=== PATIENT | male | born 1990 | race Caucasian/White ===

== ENCOUNTER 2018-01-09 10:39 | Inpatient (IN) | payer SELFPAY ==
[~2018-01-09] VITALS: Ht 182.9 cm; Wt 76.7 kg
[~2018-01-09 10:39] MED LIST: ACET325 PO; ALBU90OI INH; AMOCLA875 PO; BELPTAB PO; BENTYL; Bactrim Ds Tab1 EACH PO; CYCL10 PO; Catapres0.1 MG PO; DICYCLOMINE; DIPATR PO; DIPH50 PO; ESOM20 PO; FAMO20 PO; FAMO40 PO; Flonase 0.05% N16 GM; HYDACE5 PO; HYOS.125L SL; Loperamide2 MG PO; METO10 PO; MUPI2TO TOP; Miralax17 GM PO; NAPR500 PO; NO ROUTINE MEDS; Naprosyn375 MG PO; OMEP20ER PO; ONDA4 PO; ONDA4ODT MM; ONDA4ODT SL; OXYACE5T PO; OXYC30 PO; POTCHL10ER PO; POTCHL20ER PO; PROC10 PO; PROC25S PR; PROC5 PO; PROCHLORPERAZINE; PROM25; PROM25 PO; PROM25S PR; PROM50S PR; Pepcid40 MG PO; Permethrin60 GM TP; QUET25 PO; RANI150 PO; RXHYOS.125 PO; RXLORA1 PO; RXPROM25 PO; RXPROM25S PR; RXTRAM50 PO; SULTRIDS PO; TRAM50 PO; Ultram50 MG PO; Veetids 500500 MG PO; Zofran Odt4 MG SL
[2018-01-09 11:26] LABS: BASOPHILS ABSOLUTE AUTO 0.06 K/mm3 (0.00-0.23); BASOPHILS PERCENT AUTO 1 % (0-2); EOSINOPHILS PERCENT AUTO 0 % (0-6); Hemoglobin 17.5 g/dL (13.5-17.5); IMMATURE GRAN ABSOLUTE AUTO 0.16 K/mm3 (0.00-0.10); IMMATURE GRAN PERCENT AUTO 2 % (0-1); LYMPHOCYTES ABSOLUTE AUTO 1.07 K/mm3 (0.84-5.20); LYMPHOCYTES PERCENT AUTO 15 % (21-46); MONOCYTES ABSOLUTE AUTO 0.56 K/mm3 (0.16-1.47); MONOCYTES PERCENT AUTO 8 % (4-13); Mean Corpuscular Volume 86 fL (80-100); Mean Platelet Volume 10.8 fL (9.1-12.4); NEUTROPHILS ABSOLUTE AUTO 5.45 K/mm3 (1.96-9.15); NEUTROPHILS PERCENT AUTO 75 % (41-73); Platelet Count 231 K/mm3 (150-400); RDW Coefficient Variation 12.8 % (11.7-14.2); RDW Standard Deviation 39.4 fL (35.1-46.3); Red Blood Cell Count 5.83 M/mm3 (4.30-5.90)
[2018-01-09] MEDS ORDERED: LACTULOSE20 GM/30 M PO (12:22)
[2018-01-09 13:17] LABS: Alanine Aminotransfer (ALT/SGP 19 U/L (12-78); Albumin, Blood 4.1 g/dL (3.4-5.0); Albumin/Globulin Ratio 0.9 (0.8-1.8); Alk Phos 203 U/L (50-136); Anion Gap 25 mmol/L (6-16); Aspartate Aminotrans (AST/SGOT 43 U/L (12-37); Bilirubin, Total 1.1 mg/dL (0.1-1.0); Blood Urea Nitrogen 12 mg/dL (8-24); Bun/Creatinine Ratio 15.4 (12.0-20.0); CO2, Blood 6 mmol/L (21-32); Calcium, Blood 8.5 mg/dL (8.5-10.1); Chloride, Blood 103 mmol/L (98-108); Creatinine, Blood 0.78 mg/dL (0.60-1.20); Globulin, Blood 4.6 g/dL (2.2-4.0); Glomerular Filtration Rate >60 (60-); Glucose, Blood 451 mg/dL (70-99); Potassium, Blood 4.4 mmol/L (3.5-5.5); Sodium, Blood 134 mmol/L (136-145); Total Protein, Blood 8.7 g/dL (6.4-8.2)
[2018-01-09 13:57] LABS: PCO2 Venous 27.1 mmHg (38-42); PO2 Venous 31.5 mmHg (38-42); pH Blood Venous 7.06 (7.34-7.37)
[2018-01-09 13:58] LABS: Base Excess Venous -22.7 mmol/L; Bicarbonate Venous 9.7 mmol/L (24.0-30.0)
[2018-01-09 18:50] LABS: Anion Gap 21 mmol/L (6-16); Blood Urea Nitrogen 10 mg/dL (8-24); Bun/Creatinine Ratio 16.7 (12.0-20.0); CO2, Blood 7 mmol/L (21-32); Calcium, Blood 7.8 mg/dL (8.5-10.1); Chloride, Blood 111 mmol/L (98-108); Glomerular Filtration Rate >60 (60-); Glucose, Blood 278 mg/dL (70-99); Potassium, Blood 3.4 mmol/L (3.5-5.5); Sodium, Blood 139 mmol/L (136-145)
[2018-01-10 01:03] LABS: Anion Gap 13 mmol/L (6-16); Blood Urea Nitrogen 8 mg/dL (8-24); Bun/Creatinine Ratio 14.1 (12.0-20.0); CO2, Blood 16 mmol/L (21-32); Calcium, Blood 7.6 mg/dL (8.5-10.1); Chloride, Blood 114 mmol/L (98-108); Creatinine, Blood 0.57 mg/dL (0.60-1.20); Glomerular Filtration Rate >60 (60-); Glucose, Blood 181 mg/dL (70-99); Potassium, Blood 2.7 mmol/L (3.5-5.5); Sodium, Blood 143 mmol/L (136-145)
[2018-01-10 08:55] LABS: Anion Gap 13 mmol/L (6-16); Blood Urea Nitrogen 8 mg/dL (8-24); CO2, Blood 18 mmol/L (21-32); Calcium, Blood 7.6 mg/dL (8.5-10.1); Chloride, Blood 110 mmol/L (98-108); Glomerular Filtration Rate >60 (60-); Glucose, Blood 140 mg/dL (70-99); Potassium, Blood 2.9 mmol/L (3.5-5.5); Sodium, Blood 141 mmol/L (136-145)
[2018-01-11 05:52] LABS: Anion Gap 14 mmol/L (6-16); Blood Urea Nitrogen 15 mg/dL (8-24); Bun/Creatinine Ratio 25.2 (12.0-20.0); CO2, Blood 22 mmol/L (21-32); Calcium, Blood 8.4 mg/dL (8.5-10.1); Chloride, Blood 104 mmol/L (98-108); Glomerular Filtration Rate >60 (60-); Glucose, Blood 245 mg/dL (70-99); Potassium, Blood 3.2 mmol/L (3.5-5.5); Sodium, Blood 140 mmol/L (136-145)
[2018-01-11] MEDS ORDERED: LEVEMIR FL100 UNIT/1 SC (10:55)
[2018-01-11] MEDS ORDERED: Novolog Fl100 UNIT/1 (11:00)
== END 2018-01-11 12:50 | disposition home or self-care (01) | DRG 639 ==
LOC: ER 10:39 → ICUW 10:40 → MEDS 01-10 14:50 → ENPENDDIS 01-11 10:03 → MEDS 01-11 12:50
PROVIDERS: Hospitalist; Internal Medicine; Physician Assistant; Psychiatry & Neurology Psychiatry
DX: E11.10 Type 2 diabetes mellitus with ketoacidosis without coma (principal); F17.210 Nicotine dependence, cigarettes, uncomplicated; Z79.4 Long term (current) use of insulin; K58.1 Irritable bowel syndrome with constipation
CPT/HCPCS: 36415; 74018; 74176; 80048; 80053; 82010; 82803; 82947; 83036; 83690; 85025; C9113; J1815; J1885; J2550; J2765; J3010; J3480; J7030; J7042

== ENCOUNTER 2018-04-01 00:13 | Emergency (ER) | payer OTHER ==
[~2018-04-01] VITALS: Ht 185.4 cm; Wt 83.9 kg
[~2018-04-01 00:13] MED LIST changes: +LACTULOSE20 GM/30 M PO; +LEVEMIR FL100 UNIT/1 SC; +Novolog Fl100 UNIT/1
[2018-04-01 00:40] LABS: Calcium, Ionized (POC) 1.15 mmol/L (1.10-1.46); Chloride (POC) 106 mmol/L (98-108); Creatinine (POC) 0.8 mg/dL (0.8-1.3); Glucose (ISTAT POC) 107 mg/dL (70-99); Hemoglobin (POC) 15.3 g/dL (13.5-17.5); Potassium (POC) 3.2 mmol/L (3.5-5.5); Sodium (POC) 144 mmol/L (135-148); Total CO2 (POC) 24 mmol/L (21-32)
== END 2018-04-01 01:59 | disposition left against medical advice (07) ==
LOC: ER 00:13
PROVIDERS: Emergency Medicine
DX: T38.3X1A Poisoning by insulin and oral hypoglycemic [antidiabetic] drugs, accidental (unintentional), initial encounter (principal); E11.649 Type 2 diabetes mellitus with hypoglycemia without coma; F17.210 Nicotine dependence, cigarettes, uncomplicated; Z88.8 Allergy status to other drugs, medicaments and biological substances; Z88.1 Allergy status to other antibiotic agents; Z88.5 Allergy status to narcotic agent; Z79.4 Long term (current) use of insulin
CPT/HCPCS: 80047; 82947; 85014; 99283

== ENCOUNTER 2018-07-02 05:55 | Emergency (ER) | payer OTHER ==
[~2018-07-02] VITALS: Ht 182.9 cm; Wt 68.0 kg
[~2018-07-02 05:55] MED LIST changes: +Bentyl20 MG PO; +Dicyclomine HCl20 MG PO; +INSULANPEN SC; +Lantus100 UNIT/1 SC; +METO5A PO; -Novolog Fl100 UNIT/1; +Novolog Fl100 UNIT/1 SC; +PHENERGAN25 MG PR; +Reglan10 MG PO
[2018-07-02 06:15] LABS: Calcium, Ionized (POC) 1.17 mmol/L (1.10-1.46); Chloride (POC) 100 mmol/L (98-108); Creatinine (POC) 0.7 mg/dL (0.8-1.3); Glucose (ISTAT POC) 390 mg/dL (70-99); Hemoglobin (POC) 15.6 g/dL (13.5-17.5); Potassium (POC) 4.1 mmol/L (3.5-5.5); Sodium (POC) 140 mmol/L (135-148); Total CO2 (POC) 25 mmol/L (21-32)
[2018-07-02 06:22] LABS: Base Excess Venous 2.9 mmol/L; Bicarbonate Venous 25.9 mmol/L (24.0-30.0); PCO2 Venous 40.8 mmHg (38-42); PO2 Venous 31.1 mmHg (38-42); pH Blood Venous 7.43 (7.34-7.37)
[2018-07-02 06:24] LABS: BASOPHILS ABSOLUTE AUTO 0.01 K/mm3 (0.00-0.23); BASOPHILS PERCENT AUTO 0 % (0-2); EOSINOPHILS PERCENT AUTO 0 % (0-6); Hemoglobin 16.1 g/dL (13.5-17.5); IMMATURE GRAN ABSOLUTE AUTO 0.02 K/mm3 (0.00-0.10); IMMATURE GRAN PERCENT AUTO 0 % (0-1); LYMPHOCYTES ABSOLUTE AUTO 1.01 K/mm3 (0.84-5.20); LYMPHOCYTES PERCENT AUTO 10 % (21-46); MONOCYTES ABSOLUTE AUTO 0.43 K/mm3 (0.16-1.47); MONOCYTES PERCENT AUTO 4 % (4-13); Mean Corpuscular HGB 28.5 pg (26.0-34.0); Mean Corpuscular HGB Conc 33.5 g/dL (31.5-36.5); Mean Corpuscular Volume 85 fL (80-100); Mean Platelet Volume 10.4 fL (9.1-12.4); NEUTROPHILS ABSOLUTE AUTO 8.63 K/mm3 (1.96-9.15); NEUTROPHILS PERCENT AUTO 85 % (41-73); Platelet Count 307 K/mm3 (150-400); RDW Coefficient Variation 14.6 % (11.7-14.2); RDW Standard Deviation 45.7 fL (35.1-46.3); Red Blood Cell Count 5.64 M/mm3 (4.30-5.90)
[2018-07-02 06:47] LABS: Alanine Aminotransfer (ALT/SGP 22 U/L (12-78); Albumin/Globulin Ratio 0.9 (0.8-1.8); Alk Phos 83 U/L (50-136); Anion Gap 14 mmol/L (6-16); Aspartate Aminotrans (AST/SGOT 8 U/L (12-37); Bilirubin, Total 0.6 mg/dL (0.1-1.0); Blood Urea Nitrogen 19 mg/dL (8-24); Bun/Creatinine Ratio 25.7 (12.0-20.0); CO2, Blood 25 mmol/L (21-32); Calcium, Blood 10.1 mg/dL (8.5-10.1); Chloride, Blood 100 mmol/L (98-108); Creatinine, Blood 0.74 mg/dL (0.60-1.20); Globulin, Blood 4.4 g/dL (2.2-4.0); Glomerular Filtration Rate >60 (60-); Glucose, Blood 394 mg/dL (70-99); Potassium, Blood 4.1 mmol/L (3.5-5.5); Sodium, Blood 139 mmol/L (136-145); Total Protein, Blood 8.4 g/dL (6.4-8.2)
[2018-07-02 07:42] LABS: Source, Urine Clean Catch
[2018-07-02 07:47] LABS: Bilirubin, Urine Neg (Neg); Blood, Urine Neg (Neg); Glucose Qualitative, Urine 4+ (Neg); Ketones, Urine 4+ (Neg); Leukocyte Esterase, Urine Neg (Neg); Nitrite, Urine Neg (Neg); Protein, Urine Neg (Neg); Urobilinogen, Urine NORM (Normal)
[2018-07-02 07:52] LABS: Color, Urine Yellow (P-Yellow)
[2018-07-02 07:53] LABS: Appearance, Urine Clear (Clear)
== END 2018-07-02 08:45 | disposition home or self-care (01) ==
LOC: ER 05:55
PROVIDERS: Emergency Medicine
DX: G43.A0 Cyclical vomiting, in migraine, not intractable (principal); E10.65 Type 1 diabetes mellitus with hyperglycemia; Z91.19 Patient's noncompliance with other medical treatment and regimen; F12.90 Cannabis use, unspecified, uncomplicated; Z88.1 Allergy status to other antibiotic agents; Z88.5 Allergy status to narcotic agent; Z88.8 Allergy status to other drugs, medicaments and biological substances; Z79.4 Long term (current) use of insulin; F17.210 Nicotine dependence, cigarettes, uncomplicated
CPT/HCPCS: 36415; 80047; 80053; 81003; 82803; 83690; 85014; 85025; 96361; 96365; 96375; 99284-25; J1200; J1630; J2405; J2550; J7030

== ENCOUNTER 2018-07-04 07:25 | Emergency (ER) | payer OTHER ==
[~2018-07-04] VITALS: Ht 182.9 cm; Wt 72.6 kg
[2018-07-04 08:21] LABS: BASOPHILS ABSOLUTE AUTO 0.01 K/mm3 (0.00-0.23); BASOPHILS PERCENT AUTO 0 % (0-2); EOSINOPHILS ABSOLUTE AUTO 0.01 K/mm3 (0.00-0.68); EOSINOPHILS PERCENT AUTO 0 % (0-6); Hemoglobin 15.3 g/dL (13.5-17.5); IMMATURE GRAN ABSOLUTE AUTO 0.05 K/mm3 (0.00-0.10); IMMATURE GRAN PERCENT AUTO 1 % (0-1); LYMPHOCYTES ABSOLUTE AUTO 1.93 K/mm3 (0.84-5.20); LYMPHOCYTES PERCENT AUTO 18 % (21-46); MONOCYTES ABSOLUTE AUTO 0.77 K/mm3 (0.16-1.47); MONOCYTES PERCENT AUTO 7 % (4-13); Mean Corpuscular HGB 28.9 pg (26.0-34.0); Mean Corpuscular HGB Conc 34.8 g/dL (31.5-36.5); Mean Corpuscular Volume 83 fL (80-100); Mean Platelet Volume 10.7 fL (9.1-12.4); NEUTROPHILS ABSOLUTE AUTO 7.73 K/mm3 (1.96-9.15); NEUTROPHILS PERCENT AUTO 74 % (41-73); Platelet Count 298 K/mm3 (150-400); RDW Coefficient Variation 13.4 % (11.7-14.2); RDW Standard Deviation 40.6 fL (35.1-46.3)
[2018-07-04 08:39] LABS: Alanine Aminotransfer (ALT/SGP 23 U/L (12-78); Albumin, Blood 3.6 g/dL (3.4-5.0); Albumin/Globulin Ratio 0.9 (0.8-1.8); Alk Phos 73 U/L (50-136); Anion Gap 14 mmol/L (6-16); Aspartate Aminotrans (AST/SGOT 11 U/L (12-37); Blood Urea Nitrogen 23 mg/dL (8-24); Bun/Creatinine Ratio 34.8 (12.0-20.0); CO2, Blood 28 mmol/L (21-32); Calcium, Blood 8.9 mg/dL (8.5-10.1); Chloride, Blood 92 mmol/L (98-108); Creatinine, Blood 0.66 mg/dL (0.60-1.20); Globulin, Blood 3.8 g/dL (2.2-4.0); Glomerular Filtration Rate >60 (60-); Glucose, Blood 347 mg/dL (70-99); Potassium, Blood 3.3 mmol/L (3.5-5.5); Sodium, Blood 134 mmol/L (136-145); Total Protein, Blood 7.4 g/dL (6.4-8.2)
[2018-07-04 09:17] LABS: Source, Urine Voided
[2018-07-04 09:24] LABS: Bilirubin, Urine Neg (Neg); Blood, Urine Neg (Neg); Glucose Qualitative, Urine 4+ (Neg); Ketones, Urine 4+ (Neg); Leukocyte Esterase, Urine Neg (Neg); Nitrite, Urine Neg (Neg); Protein, Urine Neg (Neg); Urobilinogen, Urine NORM (Normal)
[2018-07-04 09:49] LABS: U Amphetamine Screen Not Detected; U Barbituate Screen Not Detected; U Benzodiazapine Screen Not Detected; U Cannabinoids Screen DETECTED; U Cocaine Screen Not Detected; U Methadone Screen Not Detected; U Methamphetamine Screen Not Detected; U Opiates Screen DETECTED; U Phencyclidine Screen Not Detected
[2018-07-04 09:50] LABS: U Buprenorphine Screen DETECTED; U Oxycodone Screen Not Detected; U Propoxyphene Screen Not Detected
[2018-07-04 09:55] LABS: Appearance, Urine Clear (Clear); Color, Urine Yellow (P-Yellow)
[2018-07-04] MEDS ORDERED: Phenergan25 MG PR (10:23)
[2018-07-04] MEDS ORDERED: PROM25 PO (10:23)
== END 2018-07-04 10:28 | disposition home or self-care (01) ==
LOC: ER 07:25
PROVIDERS: Emergency Medicine
DX: E10.65 Type 1 diabetes mellitus with hyperglycemia (principal); F17.210 Nicotine dependence, cigarettes, uncomplicated; Z88.1 Allergy status to other antibiotic agents; Z88.5 Allergy status to narcotic agent; Z79.4 Long term (current) use of insulin
CPT/HCPCS: 36415; 80053; 81003; 83690; 85025; 96361; 96374; 96375; 99283-25; J1200; J1630; J1885; J7120

== ENCOUNTER → 2018-08-17 | Outpatient (CLI) | payer OTHER ==
[~2018-08-17] MED LIST changes: +Phenergan25 MG PR; +SUBOXONE 8 MG-1 EACH SL
== END | disposition home or self-care (01) ==
LOC: LAB SHORT 10:50 → LAB SRC 10:50 → LAB SHORT 08-18 11:27
DX: Z51.81 Encounter for therapeutic drug level monitoring (principal); Z79.899 Other long term (current) drug therapy
CPT/HCPCS: G0480

== ENCOUNTER 2018-08-23 08:39 | Emergency (ER) | payer OTHER ==
[~2018-08-23] VITALS: Ht 182.9 cm; Wt 72.6 kg
[~2018-08-23 08:39] MED LIST changes: -SUBOXONE 8 MG-1 EACH SL
[2018-08-23 09:43] LABS: BASOPHILS ABSOLUTE AUTO 0.04 K/mm3 (0.00-0.23); BASOPHILS PERCENT AUTO 1 % (0-2); EOSINOPHILS ABSOLUTE AUTO 0.02 K/mm3 (0.00-0.68); EOSINOPHILS PERCENT AUTO 0 % (0-6); Hematocrit 47.9 % (37.0-53.0); Hemoglobin 16.4 g/dL (13.5-17.5); IMMATURE GRAN ABSOLUTE AUTO 0.02 K/mm3 (0.00-0.10); IMMATURE GRAN PERCENT AUTO 0 % (0-1); LYMPHOCYTES ABSOLUTE AUTO 1.72 K/mm3 (0.84-5.20); LYMPHOCYTES PERCENT AUTO 25 % (21-46); MONOCYTES ABSOLUTE AUTO 0.39 K/mm3 (0.16-1.47); MONOCYTES PERCENT AUTO 6 % (4-13); Mean Corpuscular HGB 28.5 pg (26.0-34.0); Mean Corpuscular HGB Conc 34.2 g/dL (31.5-36.5); Mean Corpuscular Volume 83 fL (80-100); Mean Platelet Volume 11.2 fL (9.1-12.4); NEUTROPHILS ABSOLUTE AUTO 4.79 K/mm3 (1.96-9.15); NEUTROPHILS PERCENT AUTO 69 % (41-73); Platelet Count 230 K/mm3 (150-400); RDW Coefficient Variation 13.3 % (11.7-14.2); RDW Standard Deviation 40.2 fL (35.1-46.3); Red Blood Cell Count 5.76 M/mm3 (4.30-5.90); White Blood Cell Count 6.98 K/mm3 (4.00-11.30)
[2018-08-23] MEDS ORDERED: SUBOXONE 8 MG-1 EACH SL (10:04)
[2018-08-23 10:12] LABS: Alanine Aminotransfer (ALT/SGP 581 U/L (12-78); Alk Phos 138 U/L (50-136); Anion Gap 10 mmol/L (6-16); Aspartate Aminotrans (AST/SGOT 324 U/L (12-37); Bilirubin, Total 0.6 mg/dL (0.1-1.0); Blood Urea Nitrogen 12 mg/dL (8-24); Bun/Creatinine Ratio 21.1 (12.0-20.0); CO2, Blood 24 mmol/L (21-32); Calcium, Blood 8.9 mg/dL (8.5-10.1); Chloride, Blood 104 mmol/L (98-108); Creatinine, Blood 0.57 mg/dL (0.60-1.20); Glomerular Filtration Rate >60 (60-); Glucose, Blood 389 mg/dL (70-99); Potassium, Blood 4.6 mmol/L (3.5-5.5); Sodium, Blood 138 mmol/L (136-145)
== END 2018-08-23 11:49 | disposition home or self-care (01) ==
LOC: ER 08:39
PROVIDERS: Emergency Medicine
DX: G43.A0 Cyclical vomiting, in migraine, not intractable (principal); E11.65 Type 2 diabetes mellitus with hyperglycemia; F17.210 Nicotine dependence, cigarettes, uncomplicated; Z88.5 Allergy status to narcotic agent; Z88.1 Allergy status to other antibiotic agents; Z88.8 Allergy status to other drugs, medicaments and biological substances; Z79.4 Long term (current) use of insulin
CPT/HCPCS: 80053; 85025; J1200; J1630; J1815; J2405; J2550; J7030

== ENCOUNTER 2018-09-06 09:22 | Emergency (ER) | payer OTHER ==
[~2018-09-06] VITALS: Ht 182.9 cm; Wt 74.8 kg
[~2018-09-06 09:22] MED LIST changes: +SUBOXONE 8 MG-1 EACH SL
[2018-09-06 09:40] LABS: Calcium, Ionized (POC) 1.05 mmol/L (1.10-1.46); Chloride (POC) 99 mmol/L (98-108); Creatinine (POC) 0.6 mg/dL (0.8-1.3); Glucose (ISTAT POC) 343 mg/dL (70-99); Potassium (POC) 4.2 mmol/L (3.5-5.5); Sodium (POC) 135 mmol/L (135-148); Total CO2 (POC) 25 mmol/L (21-32)
[2018-09-06 10:00] LABS: Source, Urine Clean Catch
[2018-09-06 10:09] LABS: BASOPHILS ABSOLUTE AUTO 0.04 K/mm3 (0.00-0.23); BASOPHILS PERCENT AUTO 0 % (0-2); EOSINOPHILS ABSOLUTE AUTO 0.06 K/mm3 (0.00-0.68); EOSINOPHILS PERCENT AUTO 1 % (0-6); Hematocrit 47.7 % (37.0-53.0); Hemoglobin 16.1 g/dL (13.5-17.5); IMMATURE GRAN ABSOLUTE AUTO 0.04 K/mm3 (0.00-0.10); IMMATURE GRAN PERCENT AUTO 0 % (0-1); LYMPHOCYTES ABSOLUTE AUTO 1.76 K/mm3 (0.84-5.20); LYMPHOCYTES PERCENT AUTO 17 % (21-46); MONOCYTES ABSOLUTE AUTO 0.42 K/mm3 (0.16-1.47); MONOCYTES PERCENT AUTO 4 % (4-13); Mean Corpuscular HGB 28.5 pg (26.0-34.0); Mean Corpuscular HGB Conc 33.8 g/dL (31.5-36.5); Mean Corpuscular Volume 85 fL (80-100); Mean Platelet Volume 10.8 fL (9.1-12.4); NEUTROPHILS ABSOLUTE AUTO 7.99 K/mm3 (1.96-9.15); NEUTROPHILS PERCENT AUTO 77 % (41-73); Platelet Count 256 K/mm3 (150-400); RDW Coefficient Variation 13.6 % (11.7-14.2); RDW Standard Deviation 41.9 fL (35.1-46.3); Red Blood Cell Count 5.64 M/mm3 (4.30-5.90); White Blood Cell Count 10.31 K/mm3 (4.00-11.30)
[2018-09-06 10:10] LABS: Bilirubin, Urine Neg (Neg); Blood, Urine Neg (Neg); Glucose Qualitative, Urine 4+ (Neg); Ketones, Urine 2+ (Neg); Leukocyte Esterase, Urine Neg (Neg); Nitrite, Urine Neg (Neg); Protein, Urine Neg (Neg); Urobilinogen, Urine NORM (Normal)
[2018-09-06 10:17] LABS: Appearance, Urine Clear (Clear); Color, Urine Yellow (P-Yellow)
[2018-09-06 10:21] LABS: Alanine Aminotransfer (ALT/SGP 37 U/L (12-78); Albumin, Blood 3.6 g/dL (3.4-5.0); Alk Phos 110 U/L (50-136); Anion Gap 4 mmol/L (6-16); Aspartate Aminotrans (AST/SGOT 12 U/L (12-37); Beta-hydroxybutyrate 3.5 mg/dL (0.2-2.8); Bilirubin, Total 0.4 mg/dL (0.1-1.0); Blood Urea Nitrogen 18 mg/dL (8-24); Bun/Creatinine Ratio 34.7 (12.0-20.0); CO2, Blood 28 mmol/L (21-32); Calcium, Blood 8.5 mg/dL (8.5-10.1); Chloride, Blood 102 mmol/L (98-108); Creatinine, Blood 0.52 mg/dL (0.60-1.20); Globulin, Blood 3.7 g/dL (2.2-4.0); Glomerular Filtration Rate >60 (60-); Glucose, Blood 345 mg/dL (70-99); Potassium, Blood 4.2 mmol/L (3.5-5.5); Sodium, Blood 134 mmol/L (136-145); Total Protein, Blood 7.3 g/dL (6.4-8.2)
[2018-09-06 11:11] LABS: Base Excess Venous 0.8 mmol/L; Bicarbonate Venous 23.6 mmol/L (24.0-30.0); PCO2 Venous 50.9 mmHg (38-42); PO2 Venous 35.9 mmHg (38-42); pH Blood Venous 7.33 (7.34-7.37)
== END 2018-09-06 11:30 | disposition home or self-care (01) ==
LOC: ER 09:22
PROVIDERS: Physician Assistant
DX: E10.65 Type 1 diabetes mellitus with hyperglycemia (principal); Z88.8 Allergy status to other drugs, medicaments and biological substances; Z88.1 Allergy status to other antibiotic agents; Z88.5 Allergy status to narcotic agent; Z79.4 Long term (current) use of insulin; Z79.899 Other long term (current) drug therapy; F17.210 Nicotine dependence, cigarettes, uncomplicated
CPT/HCPCS: 71046; 80047; 80053; 81003; 82010; 82803; 85014; 85025; 93005; 93010; 96360; 99285-25; J1815; J7030

== ENCOUNTER 2018-12-03 14:08 | Emergency (ER) | payer OTHER ==
[~2018-12-03] VITALS: Ht 182.9 cm; Wt 68.0 kg
[~2018-12-03 14:08] MED LIST changes: +Humalog100 UNIT/1
[2018-12-03 15:26] LABS: Base Excess Venous 2.6 mmol/L; Bicarbonate Venous 26.1 mmol/L (24.0-30.0); PCO2 Venous 47.2 mmHg (38-42); PO2 Venous 107 mmHg (38-42); pH Blood Venous 7.38 (7.34-7.37)
== END 2018-12-03 15:57 | disposition home or self-care (01) ==
LOC: ER 14:08
PROVIDERS: Emergency Medicine
DX: E10.65 Type 1 diabetes mellitus with hyperglycemia (principal); Z91.19 Patient's noncompliance with other medical treatment and regimen; Z88.5 Allergy status to narcotic agent; Z88.1 Allergy status to other antibiotic agents; Z79.4 Long term (current) use of insulin; Z79.899 Other long term (current) drug therapy; F17.210 Nicotine dependence, cigarettes, uncomplicated
CPT/HCPCS: 82803; 82947; 99283; J1815

== ENCOUNTER 2019-01-10 14:29 | Emergency (ER) | payer OTHER ==
[~2019-01-10] VITALS: Ht 182.9 cm; Wt 72.6 kg
[2019-01-10 15:15] LABS: BASOPHILS ABSOLUTE AUTO 0.04 K/mm3 (0.00-0.23); BASOPHILS PERCENT AUTO 0 % (0-2); EOSINOPHILS ABSOLUTE AUTO 0.06 K/mm3 (0.00-0.68); EOSINOPHILS PERCENT AUTO 1 % (0-6); Hematocrit 46.3 % (37.0-53.0); Hemoglobin 16.5 g/dL (13.5-17.5); IMMATURE GRAN ABSOLUTE AUTO 0.05 K/mm3 (0.00-0.10); IMMATURE GRAN PERCENT AUTO 0 % (0-1); LYMPHOCYTES ABSOLUTE AUTO 1.92 K/mm3 (0.84-5.20); LYMPHOCYTES PERCENT AUTO 15 % (21-46); MONOCYTES ABSOLUTE AUTO 1.04 K/mm3 (0.16-1.47); MONOCYTES PERCENT AUTO 8 % (4-13); Mean Corpuscular HGB 29.2 pg (26.0-34.0); Mean Corpuscular HGB Conc 35.6 g/dL (31.5-36.5); Mean Corpuscular Volume 82 fL (80-100); Mean Platelet Volume 10.4 fL (9.1-12.4); NEUTROPHILS ABSOLUTE AUTO 9.66 K/mm3 (1.96-9.15); NEUTROPHILS PERCENT AUTO 76 % (41-73); Platelet Count 255 K/mm3 (150-400); RDW Coefficient Variation 13.2 % (11.7-14.2); RDW Standard Deviation 39.4 fL (35.1-46.3); Red Blood Cell Count 5.65 M/mm3 (4.30-5.90); White Blood Cell Count 12.77 K/mm3 (4.00-11.30)
[2019-01-10 15:30] LABS: Source, Urine Clean Catch
[2019-01-10 15:35] LABS: Bilirubin, Urine Neg (Neg); Blood, Urine Neg (Neg); Glucose Qualitative, Urine 3+ (Neg); Ketones, Urine 3+ (Neg); Leukocyte Esterase, Urine 1+ (Neg); Nitrite, Urine Neg (Neg); Protein, Urine 2+ (Neg); Urobilinogen, Urine 1+ (Normal)
[2019-01-10 15:39] LABS: Alanine Aminotransfer (ALT/SGP 102 U/L (12-78); Albumin, Blood 4.1 g/dL (3.4-5.0); Albumin/Globulin Ratio 0.9 (0.8-1.8); Alk Phos 109 U/L (50-136); Anion Gap 7 mmol/L (6-16); Aspartate Aminotrans (AST/SGOT 52 U/L (12-37); Bilirubin, Total 0.9 mg/dL (0.1-1.0); Blood Urea Nitrogen 17 mg/dL (8-24); Bun/Creatinine Ratio 25.1 (12.0-20.0); CO2, Blood 27 mmol/L (21-32); Calcium, Blood 9.9 mg/dL (8.5-10.1); Chloride, Blood 104 mmol/L (98-108); Creatinine, Blood 0.68 mg/dL (0.60-1.20); Globulin, Blood 4.4 g/dL (2.2-4.0); Glomerular Filtration Rate >60 (60-); Glucose, Blood 144 mg/dL (70-99); Potassium, Blood 3.1 mmol/L (3.5-5.5); Sodium, Blood 138 mmol/L (136-145); Total Protein, Blood 8.5 g/dL (6.4-8.2)
[2019-01-10 15:56] LABS: Beta-hydroxybutyrate 2.3 mg/dL (0.2-2.8)
[2019-01-10 15:56] LABS: Appearance, Urine Hazy (Clear); Color, Urine Yellow (P-Yellow)
[2019-01-10 15:58] LABS: Red Blood Cells, Urine 0-2 /hpf (0-2); Squamous Epithelial Cells Rare /hpf (Few); White Blood Cells, Urine 0-2 /hpf (0-5)
[2019-01-10 15:59] LABS: Bacteria Not Seen /hpf
[2019-01-10] MEDS ORDERED: BASAGLAR K100 UNIT/1 SC (16:14)
[2019-01-10] MEDS ORDERED: Novolog100 UNIT/2 SC (16:15)
== END 2019-01-10 18:25 | disposition left against medical advice (07) ==
LOC: ER 14:29
PROVIDERS: Physician Assistant
DX: E10.65 Type 1 diabetes mellitus with hyperglycemia (principal); E87.6 Hypokalemia; F17.200 Nicotine dependence, unspecified, uncomplicated; Z88.1 Allergy status to other antibiotic agents; Z88.5 Allergy status to narcotic agent
CPT/HCPCS: 36415; 80053; 81001; 82010; 82947; 85025; 99283; J7030

== ENCOUNTER 2019-01-22 11:37 | Emergency (ER) | payer OTHER ==
[~2019-01-22] VITALS: Ht 182.9 cm; Wt 72.6 kg
[~2019-01-22 11:37] MED LIST changes: +BASAGLAR K100 UNIT/1 SC; +Novolog100 UNIT/2 SC
[2019-01-22 12:15] LABS: Calcium, Ionized (POC) 1.25 mmol/L (1.10-1.46); Chloride (POC) 101 mmol/L (98-108); Creatinine (POC) 0.6 mg/dL (0.8-1.3); Glucose (ISTAT POC) 258 mg/dL (70-99); Hemoglobin (POC) 15.3 g/dL (13.5-17.5); Potassium (POC) 3.6 mmol/L (3.5-5.5); Sodium (POC) 138 mmol/L (135-148); Total CO2 (POC) 27 mmol/L (21-32)
[2019-01-22 12:16] LABS: BASOPHILS ABSOLUTE AUTO 0.06 K/mm3 (0.00-0.23); BASOPHILS PERCENT AUTO 1 % (0-2); EOSINOPHILS ABSOLUTE AUTO 0.08 K/mm3 (0.00-0.68); EOSINOPHILS PERCENT AUTO 1 % (0-6); Hematocrit 46.4 % (37.0-53.0); Hemoglobin 15.8 g/dL (13.5-17.5); IMMATURE GRAN ABSOLUTE AUTO 0.04 K/mm3 (0.00-0.10); IMMATURE GRAN PERCENT AUTO 0 % (0-1); LYMPHOCYTES ABSOLUTE AUTO 2.81 K/mm3 (0.84-5.20); LYMPHOCYTES PERCENT AUTO 27 % (21-46); MONOCYTES ABSOLUTE AUTO 0.61 K/mm3 (0.16-1.47); MONOCYTES PERCENT AUTO 6 % (4-13); Mean Corpuscular HGB 28.8 pg (26.0-34.0); Mean Corpuscular HGB Conc 34.1 g/dL (31.5-36.5); Mean Platelet Volume 10.2 fL (9.1-12.4); NEUTROPHILS ABSOLUTE AUTO 6.74 K/mm3 (1.96-9.15); NEUTROPHILS PERCENT AUTO 65 % (41-73); Platelet Count 319 K/mm3 (150-400); RDW Coefficient Variation 13.6 % (11.7-14.2); RDW Standard Deviation 41.7 fL (35.1-46.3); Red Blood Cell Count 5.48 M/mm3 (4.30-5.90); White Blood Cell Count 10.34 K/mm3 (4.00-11.30)
[2019-01-22 12:22] LABS: Mean Corpuscular Volume 85 fL (80-100)
[2019-01-22 12:28] LABS: Base Excess Venous -1.5 mmol/L; Bicarbonate Venous 23.2 mmol/L (24.0-30.0); PCO2 Venous 41.5 mmHg (38-42); PO2 Venous 138 mmHg (38-42); pH Blood Venous 7.37 (7.34-7.37)
[2019-01-22] MEDS ORDERED: Cleocin HCl150 MG PO (12:44)
[2019-01-22 12:49] LABS: Alanine Aminotransfer (ALT/SGP 59 U/L (12-78); Alk Phos 153 U/L (50-136); Anion Gap 6 mmol/L (6-16); Aspartate Aminotrans (AST/SGOT 29 U/L (12-37); Bilirubin, Total 0.3 mg/dL (0.1-1.0); Blood Urea Nitrogen 17 mg/dL (8-24); Bun/Creatinine Ratio 28.3 (12.0-20.0); CO2, Blood 27 mmol/L (21-32); Calcium, Blood 9.6 mg/dL (8.5-10.1); Chloride, Blood 104 mmol/L (98-108); Globulin, Blood 4.2 g/dL (2.2-4.0); Glomerular Filtration Rate >60 (60-); Glucose, Blood 258 mg/dL (70-99); Potassium, Blood 3.6 mmol/L (3.5-5.5); Sodium, Blood 137 mmol/L (136-145); Total Protein, Blood 8.2 g/dL (6.4-8.2)
== END 2019-01-22 13:16 | disposition home or self-care (01) ==
LOC: ER 11:37
PROVIDERS: Emergency Medicine; Physician Assistant
DX: E10.65 Type 1 diabetes mellitus with hyperglycemia (principal); K02.9 Dental caries, unspecified; F17.210 Nicotine dependence, cigarettes, uncomplicated; Z88.8 Allergy status to other drugs, medicaments and biological substances; Z88.5 Allergy status to narcotic agent
CPT/HCPCS: 36415; 80047; 80053; 82803; 82947; 85014; 85025; 96361; 96374; 99284-25; J1885; J7030

== ENCOUNTER 2019-01-27 17:49 | Emergency (ER) | payer OTHER ==
[~2019-01-27] VITALS: Ht 182.9 cm; Wt 72.6 kg
[~2019-01-27 17:49] MED LIST changes: +Cleocin HCl150 MG PO
[2019-01-27 18:34] LABS: BASOPHILS ABSOLUTE AUTO 0.05 K/mm3 (0.00-0.23); BASOPHILS PERCENT AUTO 1 % (0-2); EOSINOPHILS ABSOLUTE AUTO 0.11 K/mm3 (0.00-0.68); EOSINOPHILS PERCENT AUTO 1 % (0-6); Hematocrit 42.4 % (37.0-53.0); Hemoglobin 15.1 g/dL (13.5-17.5); IMMATURE GRAN ABSOLUTE AUTO 0.02 K/mm3 (0.00-0.10); IMMATURE GRAN PERCENT AUTO 0 % (0-1); LYMPHOCYTES ABSOLUTE AUTO 3.11 K/mm3 (0.84-5.20); LYMPHOCYTES PERCENT AUTO 33 % (21-46); MONOCYTES ABSOLUTE AUTO 0.86 K/mm3 (0.16-1.47); MONOCYTES PERCENT AUTO 9 % (4-13); Mean Corpuscular HGB 29.9 pg (26.0-34.0); Mean Corpuscular HGB Conc 35.6 g/dL (31.5-36.5); Mean Corpuscular Volume 84 fL (80-100); NEUTROPHILS PERCENT AUTO 56 % (41-73); Platelet Count 267 K/mm3 (150-400); RDW Coefficient Variation 13.4 % (11.7-14.2); RDW Standard Deviation 40.9 fL (35.1-46.3); Red Blood Cell Count 5.05 M/mm3 (4.30-5.90); White Blood Cell Count 9.35 K/mm3 (4.00-11.30)
[2019-01-27 18:58] LABS: Alanine Aminotransfer (ALT/SGP 69 U/L (12-78); Albumin, Blood 3.4 g/dL (3.4-5.0); Albumin/Globulin Ratio 0.9 (0.8-1.8); Alk Phos 100 U/L (50-136); Anion Gap 7 mmol/L (6-16); Aspartate Aminotrans (AST/SGOT 31 U/L (12-37); Bilirubin, Total 0.4 mg/dL (0.1-1.0); Blood Urea Nitrogen 13 mg/dL (8-24); Bun/Creatinine Ratio 20.6 (12.0-20.0); CO2, Blood 29 mmol/L (21-32); Calcium, Blood 9.4 mg/dL (8.5-10.1); Chloride, Blood 100 mmol/L (98-108); Creatinine, Blood 0.63 mg/dL (0.60-1.20); Globulin, Blood 3.6 g/dL (2.2-4.0); Glomerular Filtration Rate >60 (60-); Glucose, Blood 301 mg/dL (70-99); Potassium, Blood 3.5 mmol/L (3.5-5.5); Sodium, Blood 136 mmol/L (136-145)
== END 2019-01-27 19:26 | disposition left against medical advice (07) ==
LOC: ER 17:49
PROVIDERS: Physician Assistant
DX: K04.7 Periapical abscess without sinus (principal); F17.210 Nicotine dependence, cigarettes, uncomplicated
CPT/HCPCS: 70487; 80053; 85025; 96374-59; 99284-25; J1885; J7120; Q9967

== ENCOUNTER 2019-02-01 06:44 | Inpatient (IN) | payer OTHER ==
[~2019-02-01] VITALS: Ht 182.9 cm; Wt 72.6 kg
[2019-02-01 07:27] LABS: BASOPHILS ABSOLUTE AUTO 0.07 K/mm3 (0.00-0.23); BASOPHILS PERCENT AUTO 1 % (0-2); EOSINOPHILS ABSOLUTE AUTO 0.18 K/mm3 (0.00-0.68); EOSINOPHILS PERCENT AUTO 2 % (0-6); Hematocrit 41.9 % (37.0-53.0); Hemoglobin 14.8 g/dL (13.5-17.5); IMMATURE GRAN ABSOLUTE AUTO 0.03 K/mm3 (0.00-0.10); IMMATURE GRAN PERCENT AUTO 0 % (0-1); LYMPHOCYTES ABSOLUTE AUTO 1.58 K/mm3 (0.84-5.20); LYMPHOCYTES PERCENT AUTO 16 % (21-46); MONOCYTES ABSOLUTE AUTO 0.71 K/mm3 (0.16-1.47); MONOCYTES PERCENT AUTO 7 % (4-13); Mean Corpuscular HGB 29.3 pg (26.0-34.0); Mean Corpuscular HGB Conc 35.3 g/dL (31.5-36.5); Mean Corpuscular Volume 83 fL (80-100); Mean Platelet Volume 10.5 fL (9.1-12.4); NEUTROPHILS ABSOLUTE AUTO 7.53 K/mm3 (1.96-9.15); NEUTROPHILS PERCENT AUTO 75 % (41-73); Platelet Count 221 K/mm3 (150-400); RDW Coefficient Variation 13.3 % (11.7-14.2); Red Blood Cell Count 5.05 M/mm3 (4.30-5.90)
[2019-02-01 07:59] LABS: Alanine Aminotransfer (ALT/SGP 44 U/L (12-78); Albumin, Blood 3.3 g/dL (3.4-5.0); Albumin/Globulin Ratio 0.8 (0.8-1.8); Alk Phos 110 U/L (50-136); Anion Gap 7 mmol/L (6-16); Aspartate Aminotrans (AST/SGOT 19 U/L (12-37); Bilirubin, Total 0.8 mg/dL (0.1-1.0); Blood Urea Nitrogen 13 mg/dL (8-24); Bun/Creatinine Ratio 20.1 (12.0-20.0); CO2, Blood 25 mmol/L (21-32); Calcium, Blood 8.6 mg/dL (8.5-10.1); Chloride, Blood 104 mmol/L (98-108); Creatinine, Blood 0.65 mg/dL (0.60-1.20); Globulin, Blood 4.3 g/dL (2.2-4.0); Glomerular Filtration Rate >60 (60-); Glucose, Blood 505 mg/dL (70-99); Potassium, Blood 4.3 mmol/L (3.5-5.5); Sodium, Blood 136 mmol/L (136-145); Total Protein, Blood 7.6 g/dL (6.4-8.2)
--- NOTE | 2019-02-01 15:16 | NUR ---
TALKED TO ABOUT CHECKING BLD SUGARS. JUST CHECKED AND 351. GIVE 12 UNITS INSULIN R AND RECHECK IN 2 HOURS.
--- NOTE | 2019-02-01 16:19 | NUR ---
patient disconnected iv and got dressed. sts is going out to smoke.
--- NOTE | 2019-02-01 17:06 | NUR ---
PATIENT VERY DROWSY UPON ARRIVAL AT ABOUT 1445. AWAKENED FOR EVAL. IV RT F.A. PATENT. RT SIDE OF FACE SWOLLEN. PATIENT WAS SLEEPING WITH BED ALARM ON, BUT TURNED OFF IV, TURNED OFF BED ALARM AND DISCONNECTED IV TUBING AND WENT OUTSIDE BEFORE RN COULD WRAP IV. AT THIS TIME A&O. STEADY GAIT. IN ROOM WITH RELATIVES. MULTIPLE NEEDLE SLADE LEFT ARM. NONCOMPLIANT. ADMITTED TO SHOOTING UP HEROIN WHILE IN [facility].
--- NOTE | 2019-02-01 22:01 | NUR ---
PATIENT OUTSIDE WITH FAMILY TO SMOKE X 2. MANAGER PHARMACEUTICAL WRAPPED IV SITE. BACK IN ROOM WILL CONTINUE TO MONITOR.
--- NOTE | 2019-02-01 23:27 | NUR ---
IV ABX INFUSING FOLLOWED BY NS AT 125 mL/HR. DENIES PAIN, SOB, AND N/V. CALL LIGHT IN REACH.
--- NOTE | 2019-02-01 23:38 | NUR ---
PATIENT TURNS IV PUMP ON/OFF AND RESTARTS IF HE HEARS IT BEEPING. PATIENT REMINDED TO CALL RN.
--- NOTE | 2019-02-02 03:42 | NUR ---
SHIFT SUMMARY PATIENT HAD NO ACUTE CHANGES OBSERVED THIS SHIFT. AXOX 3 AND INDEPENDENT GOING OUTSIDE X 4. CHARGE NURSE WRAPPED IV PORT WITH HX OF HEROIN USE. PATIENT TURNS HIS IV PUMP OFF TO GO OUTSIDE WITH RELATIVES AND FAMILY. REPORTED RIGHT FACIAL PAIN AND RECEIVED TORADOL PER EMAR WITH RELIEF. DENIES SOB AND N/V. CBG 286. PIV REMAINS INTACT. NS INFUSING AT 125 mL/HR. PATIENT WILL TURN IV PUMP AT TIMES AND EDUCATED NOT TO ON HIS OWN. PATIENT NON-COMPLIANT. VSS/AFEBRILE. CALL LIGHT IN REACH. BED IN LOWEST POSITION. WILL CONTINUE TO MONITOR UNTIL DAY SHIFT RN ASSUMES CARE.
--- NOTE | 2019-02-02 09:49 | NUR ---
OUTSIDE TO SMOKE EARLIER RIGHT AFTER BREAKFAST. OUTSIDE AGAIN WITH IV WRAPPED W/COBAN AND MARKED W/X. AWARE TO COME BACK IN 15 MINUTES.
--- NOTE | 2019-02-02 11:16 | NUR ---
PER GIVE SLIDING SCALE 18 UNITS FOR LUNCH W/CBG OF 490. PATIENT HAS BEEN OUTSIDE MULTIPLE TIMES. IV FROM YESTERDAY DID NOT WORK WITH PATIENT DENYING USING IT TO SHOOT UP IN IT. INTIALLY DID NOT WANT NEW IV WAS GOING TO LEAVE AMA. NEW IV STARTED. PATIENT WENT BACK OUT TO SMOKE AND THEN SHOWERED. FLUIDS RESTARTED BUT HAS NOT RECEIVED MUCH. WCTM
--- NOTE | 2019-02-02 13:17 | NUR ---
2 mg versed given for procedure. Dr. Newell drain small amount of puss from r cheek area. vvs stable. patient tollerate well. will stay with patient and monitor for recovery. warm compress given to patient to place on r side of face. vitals recorded in capsule.
--- NOTE | 2019-02-02 13:19 | NUR ---
DRAINED ABSCESS W/LOI [place] RN. CONTINUOUS SATS ON. IV W/NACL GOING. DRAINED ABOUT 1 ML FLUID. POST PROCEDURE VITALS BEING DONE.WCTM
--- NOTE | 2019-02-02 13:20 | NUR ---
add note during procedure and recovery no need for oxygen. O2 sat remain 97% RA
--- NOTE | 2019-02-02 13:30 | NUR ---
Patient resting when undistrubed. easily awakes, comunicates "some relief."
--- NOTE | 2019-02-02 14:44 | NUR ---
patient not in room. iv disconnected
--- NOTE | 2019-02-02 15:00 | NUR ---
PATIENT ADVISED IF HE LEAVES ROOM WITHOUT TELLING STAFF AND DISCONNECTS IV HE WILL BE CONSIDERED AMA AND ROOM WILL GET CLEANED. STS "OK". PATIENT TOLD THIS RN EARLIER IF HE WENT OUT FOR SMOKE AT 1215 HE WOULD STAY IN ROOM TILL 1530. PATIENT RETURNS TO ROOM AT 1500
--- NOTE | 2019-02-02 15:32 | NUR ---
SLEEPING, APPEARS COMFORTABLE
--- NOTE | 2019-02-02 15:44 | NUR ---
REFUSES BLOOD SUGAR BEING TAKEN. STS "WILL DO IT IN A LITTLE WHILE."
--- NOTE | 2019-02-02 16:31 | NUR ---
SLEEPING AT THIS TIME. UNLABORED EQUAL RESPIRATIONS. WHEN ATTEMPTED TO DO CBG, PATIENT WAKES UP AND STS "WILL DO IT LATER." PATIENT AWARE IF HE LEAVES AND DOES NOT LET STAFF KNOW HE WILL BE CONSIDERED AMA. IV INFUSING . WCTM.
--- NOTE | 2019-02-02 17:29 | NUR ---
PATIENT LETS STAFF KNOW HE WOULD LIKE TO HAVE A SMOKE.
--- NOTE | 2019-02-02 18:21 | NUR ---
BACK IN ROOM. IV INFUSING. FEELING LITTLE BETTER.
--- NOTE | 2019-02-02 18:41 | NUR ---
PATIENT BACK OUT TO SMOKE.LETS STAFF KNOW.
--- NOTE | 2019-02-03 04:45 | NUR ---
SHIFT SUMMARY: PT IS ALERT AND ORIENTED. PT IS INDEPENDENT, OUTSIDE TO SMOKE ON SEVERAL OCCASIONS. PT CALLS APPROPRIATELY. PT MOSTLY COOPERATIVE WITH CARE, DID REFUSE MORNING LAB DRAW. PT INTERMITTENTLY DISTRAUGHT R/T HIS FACIAL SWELLING AND PAIN LEVEL. PAIN CURRENTLY NOT WELL CONTROLLED, CALLED HOSPITALIST AND REQUESTED INCREASE IN DOSAGE OF HYDROCODONE, SAID SHE WOULD LET DR. CUEVA ADDRESS IT IN THE MORNING. CURRENTLY MEDICATING WITH HYDROCODONE AND TORADOL. PT DENIES NAUSEA, VOMITING AND SOB. PT SLEPT INTERMITTENTLY THROUGHOUT THE NIGHT. WILL CONTINUE TO MONITOR.
[2019-02-03 08:51] LABS: BASOPHILS ABSOLUTE AUTO 0.06 K/mm3 (0.00-0.23); BASOPHILS PERCENT AUTO 1 % (0-2); EOSINOPHILS ABSOLUTE AUTO 0.14 K/mm3 (0.00-0.68); EOSINOPHILS PERCENT AUTO 1 % (0-6); Hemoglobin 14.5 g/dL (13.5-17.5); IMMATURE GRAN ABSOLUTE AUTO 0.02 K/mm3 (0.00-0.10); IMMATURE GRAN PERCENT AUTO 0 % (0-1); LYMPHOCYTES ABSOLUTE AUTO 1.71 K/mm3 (0.84-5.20); LYMPHOCYTES PERCENT AUTO 17 % (21-46); MONOCYTES ABSOLUTE AUTO 0.87 K/mm3 (0.16-1.47); MONOCYTES PERCENT AUTO 9 % (4-13); Mean Corpuscular HGB 28.9 pg (26.0-34.0); Mean Corpuscular HGB Conc 34.5 g/dL (31.5-36.5); Mean Corpuscular Volume 84 fL (80-100); Mean Platelet Volume 10.4 fL (9.1-12.4); NEUTROPHILS ABSOLUTE AUTO 7.24 K/mm3 (1.96-9.15); NEUTROPHILS PERCENT AUTO 72 % (41-73); Platelet Count 224 K/mm3 (150-400); RDW Coefficient Variation 13.2 % (11.7-14.2); RDW Standard Deviation 40.3 fL (35.1-46.3); Red Blood Cell Count 5.02 M/mm3 (4.30-5.90); White Blood Cell Count 10.04 K/mm3 (4.00-11.30)
[2019-02-03 10:13] LABS: Anion Gap 7 mmol/L (6-16); Blood Urea Nitrogen 13 mg/dL (8-24); Bun/Creatinine Ratio 18.2 (12.0-20.0); CO2, Blood 24 mmol/L (21-32); Calcium, Blood 8.8 mg/dL (8.5-10.1); Chloride, Blood 103 mmol/L (98-108); Creatinine, Blood 0.72 mg/dL (0.60-1.20); Glomerular Filtration Rate >60 (60-); Glucose, Blood 408 mg/dL (70-99); Phosphorus, Blood 2.8 mg/dL (2.5-4.9); Potassium, Blood 4.4 mmol/L (3.5-5.5); Sodium, Blood 134 mmol/L (136-145)
--- NOTE | 2019-02-03 18:20 | NUR ---
SUMMARY- PT ALERT AND ORIENTED- INDEPENDANT- AMBULATES OUTSIDE [facility] TO SMOKE CIGARETTES. REMINDED TO ALRET RN TO HOOK AND UN HOOK IV, BUT NOT ALWAYS COMPLIANT. PT DOES USE STERILE TECHNIQUE WITH ALCHOLOL WIPES TO KEEP IV COVERED. PT'S ABCESS ERRUPTED INTO L NARE AND DRAINING PULRULANT/ RUST COLORED DRAINAGE, PT STATES IT STINKS. PT STATES THE PAIN AND PRESURE HES SUBSIDED SOME TODAY. PAIN CONTROLLED WITH LORTAB AND TORADOL. PT TOLERATING FOOD AND FLUIDS. IVF DC'D PER MD, RN UNABLE TO KEEP FLUIDS RUNNING WHEN PT CONTINUALLY DISCONNECTS. PT HAD CT TODAY.
--- NOTE | 2019-02-04 04:55 | NUR ---
SHIFT SUMMARY: PT IS ALERT AND ORIENTED. PT IS CALM AND COOPERATIVE WITH CARE. PT CALLS APPROPRIATELY. PT IS INDEPENDENT, OUTSIDE TO SMOKE ON SEVERAL OCCASIONS. PT CONTINUES TO REPORT JAW PAIN, MEDICATING PER EMAR. PT DENIES NAUSEA, VOMITING, AND SOB. PT SLEPT BETTER THIS SHIFT THAN LAST. NO ACUTE CHANGES OR COMPLICATIONS OVERNIGHT. BED IN LOW POSITION, CALL LIGHT WITHIN REACH. WILL CONTINUE TO MONITOR.
[2019-02-04 08:01] LABS: BASOPHILS ABSOLUTE AUTO 0.04 K/mm3 (0.00-0.23); BASOPHILS PERCENT AUTO 1 % (0-2); EOSINOPHILS ABSOLUTE AUTO 0.18 K/mm3 (0.00-0.68); EOSINOPHILS PERCENT AUTO 2 % (0-6); Hematocrit 40.2 % (37.0-53.0); Hemoglobin 13.7 g/dL (13.5-17.5); IMMATURE GRAN ABSOLUTE AUTO 0.02 K/mm3 (0.00-0.10); IMMATURE GRAN PERCENT AUTO 0 % (0-1); LYMPHOCYTES ABSOLUTE AUTO 2.03 K/mm3 (0.84-5.20); LYMPHOCYTES PERCENT AUTO 25 % (21-46); MONOCYTES ABSOLUTE AUTO 0.91 K/mm3 (0.16-1.47); MONOCYTES PERCENT AUTO 11 % (4-13); Mean Corpuscular HGB 29.1 pg (26.0-34.0); Mean Corpuscular HGB Conc 34.1 g/dL (31.5-36.5); Mean Corpuscular Volume 85 fL (80-100); Mean Platelet Volume 10.1 fL (9.1-12.4); NEUTROPHILS ABSOLUTE AUTO 5.02 K/mm3 (1.96-9.15); NEUTROPHILS PERCENT AUTO 61 % (41-73); Platelet Count 215 K/mm3 (150-400); RDW Standard Deviation 40.9 fL (35.1-46.3); Red Blood Cell Count 4.71 M/mm3 (4.30-5.90)
[2019-02-04 08:15] LABS: Albumin, Blood 2.8 g/dL (3.4-5.0); Anion Gap 5 mmol/L (6-16); Blood Urea Nitrogen 21 mg/dL (8-24); Bun/Creatinine Ratio 24.8 (12.0-20.0); CO2, Blood 28 mmol/L (21-32); Calcium, Blood 8.9 mg/dL (8.5-10.1); Chloride, Blood 102 mmol/L (98-108); Creatinine, Blood 0.85 mg/dL (0.60-1.20); Glomerular Filtration Rate >60 (60-); Glucose, Blood 411 mg/dL (70-99); Phosphorus, Blood 4.5 mg/dL (2.5-4.9); Potassium, Blood 4.9 mmol/L (3.5-5.5); Sodium, Blood 135 mmol/L (136-145)
--- NOTE | 2019-02-04 10:29 | NUR ---
tried to call dr. lorenzo's office twice, both times i was given busy signal. will try the doctor's answering service if i get the busy signal again. also spoke with the patient and my charge about the patient planning to go off campus and explained ot him the policy.
--- NOTE | 2019-02-04 10:46 | NUR ---
spoke with the doctor's answering service about the patient and the call was placed for the patient about the ct results.
--- NOTE | 2019-02-04 18:00 | NUR ---
SHIFT SUMMARY PATIENT HAS BEEN COMPLIANT WITH HIS MEDICATIONS BUT NONCOMPLIANT WITH HIS DIET WHILE HE HAS BEEN HERE. HE DOES NOTE THAT HE HAS SNACKS IN HIS ROOM. I HAVE EDUCATED HIM ON HIS CURRENT DIET. NO ACUTE CONCERNS AT THIS TIME.
--- NOTE | 2019-02-05 03:01 | NUR ---
NOC SHIFT SUMMARY PT IS PLEASANT AND COOPERATIVE WITH CARE THIS NIGHT. HE DOES GO OUTSIDE FREQUENTLY TO SMOKE. PAIN FOR FACIAL ABSCESS TREATED PER EMAR. VSS. NO ACUTE CHANGES NOTED. WILL CONTINUE TO MONITOR.
--- NOTE | 2019-02-05 16:49 | NUR ---
SHIFT SUMMARY PATIENT IS PLEASNAT, ALERT AND ORIENTED. HE IS CURRENTLY INDEPENDENT AND CHECKS IN AT LEAST ONCE AN HOUR. HE HAS BEEN GONE A LOT TODAY BUT HAS FOLLOWED IN WITH CHECKING IN. CHARGE NURSE AND DOCTOR IS AWARE OF HIS BEHAVIOR. PATIENT HAS BEEN EMOTIONAL TODAY DUE TO OUTSIDE HOME DRAMA. HE HAS WANTED TO LEAVE TWICE BUT IS AWARE OF HIS CURRENT MEDICAL SITUATION.
--- NOTE | 2019-02-06 03:13 | NUR ---
NOC SHIFT SUMMARY PT IS VERY EMOTIONAL THIS EVENING. HE STATES HIS GIRLFRIEND WHO WAS PREGANT HAD A MISCARAGE. HE HAS BEEN OUT OF ROOM OFTEN THIS NIGHT BUT RETURNS FREQUENTLY. GENERALLY COOPERATIVE WITH CARE THOUGH HE DID PUSH HIS EVENING DOSE OF ABX OUT 2 HOURS STATING THAT HE DID NOT WANT TO RECIEVE ABX WHILE HIS MOTHER WAS VISITING HIM. REFUSED EVENING DOSE OF LANTUS STATING THAT HE TAKES LANTUS IN THE MORNING. HIS EVENING CBG WAS 128 WHICH HE STATES IS VERY LOW FOR HIM. AT TIME OF WRITING THIS SUMMARY PT IS OBSERVED STEPPING OUTSIDE AGAIN. APPEARS IN NO ACUTE DISTRESS. WILL CONTINUE TO MONITOR.
[2019-02-06 04:36] LABS: BASOPHILS ABSOLUTE AUTO 0.05 K/mm3 (0.00-0.23); BASOPHILS PERCENT AUTO 1 % (0-2); EOSINOPHILS ABSOLUTE AUTO 0.15 K/mm3 (0.00-0.68); EOSINOPHILS PERCENT AUTO 2 % (0-6); Hematocrit 39.4 % (37.0-53.0); Hemoglobin 13.4 g/dL (13.5-17.5); IMMATURE GRAN ABSOLUTE AUTO 0.02 K/mm3 (0.00-0.10); IMMATURE GRAN PERCENT AUTO 0 % (0-1); LYMPHOCYTES ABSOLUTE AUTO 2.04 K/mm3 (0.84-5.20); LYMPHOCYTES PERCENT AUTO 30 % (21-46); MONOCYTES ABSOLUTE AUTO 0.64 K/mm3 (0.16-1.47); MONOCYTES PERCENT AUTO 10 % (4-13); Mean Corpuscular HGB 29.7 pg (26.0-34.0); Mean Corpuscular Volume 87 fL (80-100); Mean Platelet Volume 10.2 fL (9.1-12.4); NEUTROPHILS ABSOLUTE AUTO 3.85 K/mm3 (1.96-9.15); NEUTROPHILS PERCENT AUTO 57 % (41-73); Platelet Count 242 K/mm3 (150-400); RDW Standard Deviation 41.4 fL (35.1-46.3); Red Blood Cell Count 4.51 M/mm3 (4.30-5.90); White Blood Cell Count 6.75 K/mm3 (4.00-11.30)
[2019-02-06 04:53] LABS: Anion Gap 6 mmol/L (6-16); Blood Urea Nitrogen 18 mg/dL (8-24); Bun/Creatinine Ratio 22.8 (12.0-20.0); CO2, Blood 31 mmol/L (21-32); Calcium, Blood 9.1 mg/dL (8.5-10.1); Chloride, Blood 98 mmol/L (98-108); Creatinine, Blood 0.79 mg/dL (0.60-1.20); Glomerular Filtration Rate >60 (60-); Glucose, Blood 560 mg/dL (70-99); Potassium, Blood 4.8 mmol/L (3.5-5.5); Sodium, Blood 135 mmol/L (136-145)
[2019-02-06 07:59] LABS: Glucose, Blood 695 mg/dL (70-99)
[2019-02-06] MEDS ORDERED: Florastor250 MG PO (08:45)
[2019-02-06] MEDS ORDERED: Augmentin 875-1 EACH PO (08:46)
--- NOTE | 2019-02-06 09:53 | NUR ---
PATIENT HAD HIGH BLOOD SUGAR THIS AM. LAB CALLED WITH CRITICAL HIGH OF 695. THIS WAS REPORTED TO DR. MAHONEY AND OBTAINED AN ORDER FOR 5 UNITS INSULIN IV PLUS HIS SLIDING SCALE INSULIN. THIS WAS ADMINISTERED AND PATIENT WAS NOT AGREEABLE TO RECHECKING HIS BLOOD SUGAR BEFORE HE LEFT. HE WANTED TO BE MEDICATED AND FELT THAT HE WAS WRONGFULLY DISCHARGED. AT THIS TIME HE SIGNED HIS DISCHARGE PAPERS AND STATED HE WOULD BE LEAVING ONLY TO CHECK INTO THE ER AND SEE IF HE COULD BE READMITTED. HE REMOVED HIS OWN IV PRIOR TO DISCHARGE AND THREW IT IN THE SHARPS CONTAINER. THE PATIENT WAS NONCOMPLIANT WITH HIS DIET WHILE IN THE HOSPITAL. DISCHARGE PAPERS HAVE BEEN SIGNED AND HE HAS LEFT.
--- NOTE | 2019-02-07 10:36 | NUR ---
[facility] OFFICE STATED THEY WILL CALL PATIENT TO SET UP AN APPOINTMENT WITHIN ONE WEEK OF PATIENTS DISCHARGE
[2019-02-07] MEDS ORDERED: NOVOLOG FL100 UNIT/1 SC (15:53)
[2019-02-07] MEDS ORDERED: Lantus100 UNIT/1 SC (15:53)
== END 2019-02-06 09:00 | disposition home or self-care (01) | DRG 158 ==
LOC: ER 06:44 → ERHOLD 09:28 → MEDS 09:28
PROVIDERS: Emergency Medicine; Internal Medicine; ADMIT Family Medicine
PROC: 0C9WXZ0 Drainage of Upper Tooth, External Approach, Single (ICD-10-PCS; principal; 2019-02-01)
DX: K04.6 Periapical abscess with sinus (principal); K12.2 Cellulitis and abscess of mouth; F17.210 Nicotine dependence, cigarettes, uncomplicated; F11.10 Opioid abuse, uncomplicated; E10.65 Type 1 diabetes mellitus with hyperglycemia; Z91.11 Patient's noncompliance with dietary regimen
CPT/HCPCS: 10160; 36415; 70487; 80048; 80053; 80069; 82947; 85025; 87070; 87075; 87205; 96361-59; 96365-59; 96375-59; 99285-25; A9270; A9270-GY; J1815; J1885; J2250; J2543; J7030; Q9967

== ENCOUNTER 2019-02-06 09:02 | Emergency (ER) | payer OTHER ==
[~2019-02-06] VITALS: Ht 182.9 cm; Wt 72.6 kg
[~2019-02-06 09:02] MED LIST changes: +Augmentin 875-1 EACH PO; +Florastor250 MG PO
[2019-02-07] MEDS ORDERED: NOVOLOG FL100 UNIT/1 SC (15:53)
[2019-02-07] MEDS ORDERED: Lantus100 UNIT/1 SC (15:53)
== END 2019-02-06 09:30 | disposition left against medical advice (07) ==
LOC: ER 09:02
DX: L03.211 Cellulitis of face (principal); R45.1 Restlessness and agitation; Z88.5 Allergy status to narcotic agent; Z88.8 Allergy status to other drugs, medicaments and biological substances; E10.9 Type 1 diabetes mellitus without complications; F17.210 Nicotine dependence, cigarettes, uncomplicated
CPT/HCPCS: 99282

== ENCOUNTER 2019-02-07 14:12 | Emergency (ER) | payer OTHER ==
[~2019-02-07] VITALS: Ht 182.9 cm; Wt 72.6 kg
[2019-02-07 15:05] LABS: Calcium, Ionized (POC) 1.21 mmol/L (1.10-1.46); Chloride (POC) 90 mmol/L (98-108); Creatinine (POC) 0.8 mg/dL (0.8-1.3); Glucose (ISTAT POC) >700 mg/dL (70-99); Potassium (POC) 4.3 mmol/L (3.5-5.5); Sodium (POC) 129 mmol/L (135-148); Total CO2 (POC) 26 mmol/L (21-32)
[2019-02-07] MEDS ORDERED: Lantus100 UNIT/1 SC (15:53)
[2019-02-07] MEDS ORDERED: NOVOLOG FL100 UNIT/1 SC (15:53)
[2019-02-07 19:23] LABS: Glucose, Blood 690 mg/dL (70-99)
== END 2019-02-07 16:46 | disposition left against medical advice (07) ==
LOC: ER 14:12
PROVIDERS: Emergency Medicine
DX: E10.65 Type 1 diabetes mellitus with hyperglycemia (principal); F17.210 Nicotine dependence, cigarettes, uncomplicated; Z88.5 Allergy status to narcotic agent; Z88.1 Allergy status to other antibiotic agents; Z79.4 Long term (current) use of insulin; Z79.899 Other long term (current) drug therapy
CPT/HCPCS: 36415; 80047; 82947; 85014; 96361; 96374; 99283-25; J1815; J1885; J7120

== ENCOUNTER 2019-02-10 14:34 | Emergency (ER) | payer OTHER ==
[~2019-02-10] VITALS: Ht 182.9 cm; Wt 72.6 kg
[~2019-02-10 14:34] MED LIST changes: +NOVOLOG FL100 UNIT/1 SC
[2019-02-10 15:10] LABS: Source, Urine Clean Catch
[2019-02-10 15:13] LABS: Bilirubin, Urine Neg (Neg); Blood, Urine Neg (Neg); Glucose Qualitative, Urine 4+ (Neg); Ketones, Urine Neg (Neg); Leukocyte Esterase, Urine Neg (Neg); Nitrite, Urine Neg (Neg); Protein, Urine Neg (Neg); Urobilinogen, Urine NORM (Normal)
[2019-02-10 15:14] LABS: Appearance, Urine Clear (Clear); Color, Urine Yellow (P-Yellow)
[2019-02-10 15:21] LABS: BASOPHILS ABSOLUTE AUTO 0.05 K/mm3 (0.00-0.23); BASOPHILS PERCENT AUTO 1 % (0-2); EOSINOPHILS ABSOLUTE AUTO 0.22 K/mm3 (0.00-0.68); EOSINOPHILS PERCENT AUTO 3 % (0-6); Hematocrit 39.8 % (37.0-53.0); Hemoglobin 13.6 g/dL (13.5-17.5); IMMATURE GRAN ABSOLUTE AUTO 0.02 K/mm3 (0.00-0.10); IMMATURE GRAN PERCENT AUTO 0 % (0-1); LYMPHOCYTES PERCENT AUTO 28 % (21-46); MONOCYTES ABSOLUTE AUTO 0.63 K/mm3 (0.16-1.47); MONOCYTES PERCENT AUTO 8 % (4-13); Mean Corpuscular HGB 29.8 pg (26.0-34.0); Mean Corpuscular HGB Conc 34.2 g/dL (31.5-36.5); Mean Corpuscular Volume 87 fL (80-100); NEUTROPHILS ABSOLUTE AUTO 4.64 K/mm3 (1.96-9.15); NEUTROPHILS PERCENT AUTO 60 % (41-73); Platelet Count 266 K/mm3 (150-400); RDW Coefficient Variation 13.1 % (11.7-14.2); RDW Standard Deviation 41.3 fL (35.1-46.3); Red Blood Cell Count 4.57 M/mm3 (4.30-5.90); White Blood Cell Count 7.76 K/mm3 (4.00-11.30)
[2019-02-10 15:40] LABS: Base Excess Venous 4.4 mmol/L; Bicarbonate Venous 27.7 mmol/L (24.0-30.0); PCO2 Venous 45.1 mmHg (38-42); PO2 Venous 122 mmHg (38-42); pH Blood Venous 7.42 (7.34-7.37)
[2019-02-10 16:06] LABS: Beta-hydroxybutyrate 1.3 mg/dL (0.2-2.8)
[2019-02-10 16:08] LABS: Alanine Aminotransfer (ALT/SGP 57 U/L (12-78); Albumin, Blood 3.4 g/dL (3.4-5.0); Albumin/Globulin Ratio 0.8 (0.8-1.8); Alk Phos 131 U/L (50-136); Anion Gap 7 mmol/L (6-16); Aspartate Aminotrans (AST/SGOT 22 U/L (12-37); Bilirubin, Total 0.3 mg/dL (0.1-1.0); Blood Urea Nitrogen 17 mg/dL (8-24); Bun/Creatinine Ratio 27.9 (12.0-20.0); CO2, Blood 29 mmol/L (21-32); Calcium, Blood 9.3 mg/dL (8.5-10.1); Chloride, Blood 93 mmol/L (98-108); Creatinine, Blood 0.61 mg/dL (0.60-1.20); Globulin, Blood 4.2 g/dL (2.2-4.0); Glomerular Filtration Rate >60 (60-); Glucose, Blood 689 mg/dL (70-99); Potassium, Blood 4.1 mmol/L (3.5-5.5); Sodium, Blood 129 mmol/L (136-145); Total Protein, Blood 7.6 g/dL (6.4-8.2)
== END 2019-02-10 16:51 | disposition left against medical advice (07) ==
LOC: ER 14:34
PROVIDERS: Emergency Medicine
DX: E10.65 Type 1 diabetes mellitus with hyperglycemia (principal); R51 Headache; H53.8 Other visual disturbances; Z88.5 Allergy status to narcotic agent; Z88.8 Allergy status to other drugs, medicaments and biological substances; F17.210 Nicotine dependence, cigarettes, uncomplicated
CPT/HCPCS: 36415; 80053; 81003; 82010; 82803; 82947; 85025; 96360; 99283-25; J1815; J7030

== ENCOUNTER 2019-02-14 12:58 | Emergency (ER) | payer OTHER ==
[~2019-02-14] VITALS: Ht 182.9 cm; Wt 72.6 kg
[2019-02-14 13:31] LABS: BASOPHILS ABSOLUTE AUTO 0.07 K/mm3 (0.00-0.23); BASOPHILS PERCENT AUTO 1 % (0-2); EOSINOPHILS ABSOLUTE AUTO 0.05 K/mm3 (0.00-0.68); EOSINOPHILS PERCENT AUTO 0 % (0-6); Hematocrit 46.3 % (37.0-53.0); Hemoglobin 16.4 g/dL (13.5-17.5); IMMATURE GRAN ABSOLUTE AUTO 0.04 K/mm3 (0.00-0.10); IMMATURE GRAN PERCENT AUTO 0 % (0-1); LYMPHOCYTES ABSOLUTE AUTO 2.57 K/mm3 (0.84-5.20); LYMPHOCYTES PERCENT AUTO 22 % (21-46); MONOCYTES ABSOLUTE AUTO 0.54 K/mm3 (0.16-1.47); MONOCYTES PERCENT AUTO 5 % (4-13); Mean Corpuscular HGB 29.3 pg (26.0-34.0); Mean Corpuscular HGB Conc 35.4 g/dL (31.5-36.5); Mean Platelet Volume 10.4 fL (9.1-12.4); NEUTROPHILS ABSOLUTE AUTO 8.48 K/mm3 (1.96-9.15); NEUTROPHILS PERCENT AUTO 72 % (41-73); Platelet Count 344 K/mm3 (150-400); RDW Coefficient Variation 12.6 % (11.7-14.2); RDW Standard Deviation 37.7 fL (35.1-46.3); Red Blood Cell Count 5.59 M/mm3 (4.30-5.90); White Blood Cell Count 11.75 K/mm3 (4.00-11.30)
[2019-02-14 13:33] LABS: Mean Corpuscular Volume 83 fL (80-100)
[2019-02-14 13:51] LABS: Alanine Aminotransfer (ALT/SGP 55 U/L (12-78); Albumin, Blood 4.3 g/dL (3.4-5.0); Albumin/Globulin Ratio 0.9 (0.8-1.8); Alk Phos 189 U/L (50-136); Anion Gap 11 mmol/L (6-16); Aspartate Aminotrans (AST/SGOT 18 U/L (12-37); Bilirubin, Total 0.6 mg/dL (0.1-1.0); Blood Urea Nitrogen 22 mg/dL (8-24); Bun/Creatinine Ratio 35.3 (12.0-20.0); CO2, Blood 26 mmol/L (21-32); Calcium, Blood 9.7 mg/dL (8.5-10.1); Chloride, Blood 95 mmol/L (98-108); Creatinine, Blood 0.62 mg/dL (0.60-1.20); Globulin, Blood 4.9 g/dL (2.2-4.0); Glomerular Filtration Rate >60 (60-); Glucose, Blood 482 mg/dL (70-99); Sodium, Blood 132 mmol/L (136-145); Total Protein, Blood 9.2 g/dL (6.4-8.2)
== END 2019-02-14 15:08 | disposition home or self-care (01) ==
LOC: ER 12:58
PROVIDERS: Physician Assistant
DX: E10.65 Type 1 diabetes mellitus with hyperglycemia (principal); Z88.5 Allergy status to narcotic agent; Z88.1 Allergy status to other antibiotic agents; F17.210 Nicotine dependence, cigarettes, uncomplicated
CPT/HCPCS: 36415; 80053; 82272; 85025; 99283

== ENCOUNTER 2019-02-18 11:16 | Emergency (ER) | payer OTHER ==
[~2019-02-18] VITALS: Ht 182.9 cm; Wt 72.6 kg
[2019-02-18 11:42] LABS: Source, Urine Clean Catch
[2019-02-18 11:56] LABS: BASOPHILS ABSOLUTE AUTO 0.05 K/mm3 (0.00-0.23); BASOPHILS PERCENT AUTO 1 % (0-2); EOSINOPHILS PERCENT AUTO 1 % (0-6); Hematocrit 43.9 % (37.0-53.0); Hemoglobin 15.5 g/dL (13.5-17.5); IMMATURE GRAN ABSOLUTE AUTO 0.07 K/mm3 (0.00-0.10); IMMATURE GRAN PERCENT AUTO 1 % (0-1); LYMPHOCYTES ABSOLUTE AUTO 2.15 K/mm3 (0.84-5.20); LYMPHOCYTES PERCENT AUTO 24 % (21-46); MONOCYTES ABSOLUTE AUTO 0.58 K/mm3 (0.16-1.47); MONOCYTES PERCENT AUTO 6 % (4-13); Mean Corpuscular HGB Conc 35.3 g/dL (31.5-36.5); Mean Corpuscular Volume 82 fL (80-100); NEUTROPHILS ABSOLUTE AUTO 6.12 K/mm3 (1.96-9.15); NEUTROPHILS PERCENT AUTO 67 % (41-73); Platelet Count 237 K/mm3 (150-400); RDW Coefficient Variation 12.8 % (11.7-14.2); RDW Standard Deviation 38.3 fL (35.1-46.3); Red Blood Cell Count 5.34 M/mm3 (4.30-5.90); White Blood Cell Count 9.07 K/mm3 (4.00-11.30)
[2019-02-18 11:59] LABS: Bilirubin, Urine Neg (Neg); Blood, Urine Neg (Neg); Glucose Qualitative, Urine 4+ (Neg); Ketones, Urine Neg (Neg); Leukocyte Esterase, Urine Neg (Neg); Nitrite, Urine Neg (Neg); Protein, Urine Neg (Neg); Specific Gravity, Urine 1.005 (1.003-1.022); Urobilinogen, Urine NORM (Normal)
[2019-02-18 12:12] LABS: Appearance, Urine Clear (Clear); Color, Urine Yellow (P-Yellow)
[2019-02-18 12:13] LABS: Base Excess Venous 1.8 mmol/L; Bicarbonate Venous 25.3 mmol/L (24.0-30.0); PCO2 Venous 43.8 mmHg (38-42); PO2 Venous 51.5 mmHg (38-42); pH Blood Venous 7.39 (7.34-7.37)
[2019-02-18 12:18] LABS: Alanine Aminotransfer (ALT/SGP 42 U/L (12-78); Albumin, Blood 3.6 g/dL (3.4-5.0); Albumin/Globulin Ratio 0.9 (0.8-1.8); Alk Phos 162 U/L (50-136); Anion Gap 8 mmol/L (6-16); Aspartate Aminotrans (AST/SGOT 26 U/L (12-37); Bilirubin, Total 0.4 mg/dL (0.1-1.0); Blood Urea Nitrogen 23 mg/dL (8-24); Bun/Creatinine Ratio 32.2 (12.0-20.0); CO2, Blood 26 mmol/L (21-32); Calcium, Blood 8.8 mg/dL (8.5-10.1); Chloride, Blood 87 mmol/L (98-108); Creatinine, Blood 0.72 mg/dL (0.60-1.20); Globulin, Blood 3.9 g/dL (2.2-4.0); Glomerular Filtration Rate >60 (60-); Glucose, Blood 742 mg/dL (70-99); Potassium, Blood 4.8 mmol/L (3.5-5.5); Sodium, Blood 121 mmol/L (136-145); Total Protein, Blood 7.5 g/dL (6.4-8.2)
[2019-02-18 12:19] LABS: Beta-hydroxybutyrate 4.2 mg/dL (0.2-2.8)
[2019-02-18 12:20] LABS: Glucose, Blood 747 mg/dL (70-99)
[2019-02-18 14:05] LABS: Glucose, Blood 497 mg/dL (70-99)
[2019-02-19] MEDS ORDERED: Cleocin HCl300 MG PO (10:08)
[2019-02-19] MEDS ORDERED: IBUP800 PO (10:08)
== END 2019-02-18 14:20 | disposition left against medical advice (07) ==
LOC: ER 11:16
PROVIDERS: Emergency Medicine
DX: E10.65 Type 1 diabetes mellitus with hyperglycemia (principal); F11.20 Opioid dependence, uncomplicated; Z88.5 Allergy status to narcotic agent; Z88.1 Allergy status to other antibiotic agents; Z79.4 Long term (current) use of insulin; F17.210 Nicotine dependence, cigarettes, uncomplicated
CPT/HCPCS: 36415; 80053; 81003; 82010; 82803; 82947; 85025; 96360; 99283-25; J1815; J7030

== ENCOUNTER 2019-02-19 09:25 | Emergency (ER) | payer OTHER ==
[~2019-02-19] VITALS: Ht 182.9 cm; Wt 74.8 kg
[2019-02-19] MEDS ORDERED: Cleocin HCl300 MG PO (10:08)
[2019-02-19] MEDS ORDERED: IBUP800 PO (10:08)
== END 2019-02-19 10:48 | disposition home or self-care (01) ==
LOC: ER 09:25
DX: K04.7 Periapical abscess without sinus (principal); Z88.4 Allergy status to anesthetic agent; E10.9 Type 1 diabetes mellitus without complications; F17.210 Nicotine dependence, cigarettes, uncomplicated; Z88.5 Allergy status to narcotic agent; Z88.1 Allergy status to other antibiotic agents
CPT/HCPCS: 96372; 99283-25

== ENCOUNTER 2019-02-20 07:29 | Inpatient (IN) | payer OTHER ==
[~2019-02-20] VITALS: Ht 182.9 cm; Wt 72.4 kg
[~2019-02-20 07:29] MED LIST changes: +Cleocin HCl300 MG PO; +IBUP800 PO
[2019-02-20 08:13] LABS: BASOPHILS ABSOLUTE AUTO 0.04 K/mm3 (0.00-0.23); BASOPHILS PERCENT AUTO 0 % (0-2); EOSINOPHILS ABSOLUTE AUTO 0.11 K/mm3 (0.00-0.68); EOSINOPHILS PERCENT AUTO 1 % (0-6); Hematocrit 44.3 % (37.0-53.0); Hemoglobin 15.5 g/dL (13.5-17.5); IMMATURE GRAN ABSOLUTE AUTO 0.04 K/mm3 (0.00-0.10); IMMATURE GRAN PERCENT AUTO 0 % (0-1); LYMPHOCYTES PERCENT AUTO 13 % (21-46); MONOCYTES ABSOLUTE AUTO 0.61 K/mm3 (0.16-1.47); MONOCYTES PERCENT AUTO 6 % (4-13); Mean Corpuscular Volume 83 fL (80-100); NEUTROPHILS ABSOLUTE AUTO 8.99 K/mm3 (1.96-9.15); NEUTROPHILS PERCENT AUTO 80 % (41-73); Platelet Count 237 K/mm3 (150-400); RDW Coefficient Variation 13.1 % (11.7-14.2); RDW Standard Deviation 39.1 fL (35.1-46.3); Red Blood Cell Count 5.35 M/mm3 (4.30-5.90); White Blood Cell Count 11.19 K/mm3 (4.00-11.30)
[2019-02-20 08:26] LABS: Anion Gap 8 mmol/L (6-16); Blood Urea Nitrogen 23 mg/dL (8-24); Bun/Creatinine Ratio 44.7 (12.0-20.0); CO2, Blood 27 mmol/L (21-32); Calcium, Blood 9.2 mg/dL (8.5-10.1); Chloride, Blood 100 mmol/L (98-108); Creatinine, Blood 0.52 mg/dL (0.60-1.20); Glomerular Filtration Rate >60 (60-); Glucose, Blood 529 mg/dL (70-99); Potassium, Blood 4.4 mmol/L (3.5-5.5)
[2019-02-20 08:43] LABS: Sodium, Blood 135 mmol/L (136-145)
--- NOTE | 2019-02-20 16:25 | NUR ---
SHIFT SUMMARY RECEIVED PT TO 363 @ 10:20, WALKING WITH 2 PERSONAL LINES AGENT'S. PT AMBULATES WELL. ADMITTED FOR FACIAL INFECTION; R UPPER CHEEK TO R EYE SWELLING AND REDNESS. PER REPORT, PT HERE 2 WEEKS AGO BUT ENDED UP GOING AMA AFTER DOING HEROIN WHILE HERE. PER REPORT, PT TO CROSS ROADS AND DOING WELL. PT IS TYPE 1 DIABETIC, UNCONTROLLED WITH CBG'S IN THE 800'S A COUPLE OF DAYS AGO. CBG AT TIME OF ADMIT TODAY, 529. INSULIN COVERAGE GIVEN. CBG'S DECREASING WITH TX'S. PT RECEIVING LR, TORADOL, AND CLINDAMYCIN IN ER. PT HAS BEEN PLEASANT AND CO-OP WHILE HERE TODAY. DISCONNECTED IV LINE AND STOPPED PUMP ONCE. PT EDU TO CALL FOR ASSIST FIRST. PT AGREED AND HAS DONE SO SINCE. IV BOLUS GIVEN AFTER ADMISSION. PT THEN REQUESTED TO BE SL. DR ZAMBRANO NOTIFIED AND STOPPED CONTINOUS FLUIDS AT THIS TIME. PT HAS BEEN OUT TO K MULTIPLE TIMES IN THE LAST COUPLE OF HOURS, BUT HAS RETURNED EACH TIME AFTER A SHORT WHILE. FRIENDS AND FAMILY IN TO SEE PT TODAY. INDEPENDENT IN AND HALLS. C/O PAIN TO R FACE ONCE; TORADOL GIVEN PER EMAR. ABLE TO MAKE NEEDS KNOWN.
--- NOTE | 2019-02-20 21:33 | NUR ---
02/20/192134 Pt refused PM insulins. States he does not take long acting insulin at night and blood sugar of 196 "is low enough before I sleep". PT WENT OUT TO SMOKE AGAIN NOW.
[2019-02-21 04:47] LABS: BASOPHILS ABSOLUTE AUTO 0.05 K/mm3 (0.00-0.23); BASOPHILS PERCENT AUTO 1 % (0-2); EOSINOPHILS ABSOLUTE AUTO 0.27 K/mm3 (0.00-0.68); EOSINOPHILS PERCENT AUTO 3 % (0-6); Hematocrit 41.8 % (37.0-53.0); Hemoglobin 14.2 g/dL (13.5-17.5); IMMATURE GRAN ABSOLUTE AUTO 0.03 K/mm3 (0.00-0.10); IMMATURE GRAN PERCENT AUTO 0 % (0-1); LYMPHOCYTES ABSOLUTE AUTO 3.32 K/mm3 (0.84-5.20); LYMPHOCYTES PERCENT AUTO 34 % (21-46); MONOCYTES ABSOLUTE AUTO 0.71 K/mm3 (0.16-1.47); MONOCYTES PERCENT AUTO 7 % (4-13); Mean Corpuscular Volume 85 fL (80-100); Mean Platelet Volume 11.2 fL (9.1-12.4); NEUTROPHILS ABSOLUTE AUTO 5.46 K/mm3 (1.96-9.15); NEUTROPHILS PERCENT AUTO 56 % (41-73); Platelet Count 215 K/mm3 (150-400); RDW Coefficient Variation 13.1 % (11.7-14.2); RDW Standard Deviation 40.5 fL (35.1-46.3); White Blood Cell Count 9.84 K/mm3 (4.00-11.30)
[2019-02-21 05:09] LABS: Anion Gap 7 mmol/L (6-16); Blood Urea Nitrogen 23 mg/dL (8-24); Bun/Creatinine Ratio 37.5 (12.0-20.0); CO2, Blood 26 mmol/L (21-32); Calcium, Blood 8.9 mg/dL (8.5-10.1); Chloride, Blood 104 mmol/L (98-108); Creatinine, Blood 0.61 mg/dL (0.60-1.20); Glomerular Filtration Rate >60 (60-); Glucose, Blood 345 mg/dL (70-99); Potassium, Blood 4.4 mmol/L (3.5-5.5); Sodium, Blood 137 mmol/L (136-145)
--- NOTE | 2019-02-21 18:33 | NUR ---
PATIENT A/OX4, REDNESS AND SWELLING IN FACE CONTINUES TO IMPROVE. TORADOL GIVEN X1 THIS SHIFT TO TREAT PAIN. 20G IV TO R UPPER ARM WNL AND SL. PATIENT GOES OUTSIDE FREQUENTLY TO SMOKE. ACHS BLOOD SUGARS, ADA DIET. ZOSYN Q6 HOURS. PATIENT CALM AND COOPERATIVE WITH CARE THIS SHIFT.
--- NOTE | 2019-02-21 21:37 | NUR ---
02/21/192134 BLOOD SUGAR = 427. NOTIFIED DRYWALL HANGER FRAMER HOSPITALIST OF BLOOD SUGAR. DR WALL STATES , "OKAY." "THAT'S ENOUGH INSULIN FOR NOW." PT ADMITS TO EATING CANDY EARLIER. PT HAS BEEN NON-COMPLIANT WITH PLAN OF CARE AT TIMES. STATES HE TOOK HIS OWN INSULIN BEFORE DINNER. INSTRUCTED PT TO NOT TAKE ANY MEDS OF HIS OWN. RN ALSO INFORMED HIM NOT TO DISCONNECT HIS IV WHEN THE ANTIBIOTIC IS COMPLETE. HE AGREES TO FOLLOW HOSPITAL PROTOCOL FROM NOW ON.
--- NOTE | 2019-02-21 23:47 | NUR ---
02/21/19 2330 RETURNED FROM OUTSIDE "SMOKING". HANDS SHAKEY AND FEELS LIKE BLOOD SUGAR IS LOW. BLOOD SUGAR CHECK =81. PT STATES THAT IS LOW FOR HIM AND REQUESTED SNACK AND MILK X 2. GIVEN SNACKS PER REQUEST.
--- NOTE | 2019-02-22 05:24 | NUR ---
02/22/19 0525 VITALS STABLE. PT WAS UP TO SMOKE UNTIL PAST 1 AM. SLEEPING WELL NOW. RT SIDE OF FACE STILL SWOLLEN BUT BETTER THAN ON ADMIT. TAKING PO INTAKE WELL.
--- NOTE | 2019-02-22 15:55 | NUR ---
PATIENT CAME BACK TO ROOM AFTER BEING OUTSIDE AND SEMELT LIKE MARIJUANA. WHEN CONFRONTED PATIENT ADMITTED TO BEING HIGH AND SAID HE WAS DOING IT BECAUSE HE WAS TRYING TO QUIT SMOKING. PATIENT TOLD THAT THIS WAS NOT ALOUD ON THE HOSPITAL PREMISES AND WHILE HE IS HOSPITALIZED. DR. ZAMBRANO NOTIFIED AND THE PATIENT WAS GIVEN ONE LAST CHANCE. PATIENT INFORMED THAT IF HE DOES THIS AGAIN HE WILL BE D/C'D FROM THE HOSPITAL.
--- NOTE | 2019-02-23 05:53 | NUR ---
SHIFT SUMMARY NO ACUTE CHANGES. PT OUTSIDE FREQUENTLY TO SMOKE. NO SMELL OF MARIJUANA NOTED UPON RETURNING FROM OUTSIDE. PT IS NONCOMPLIANT WITH A DIABETIC DIET, FREQUENTLY ASKS FOR SNACKS OR GOES TO THE VENDING MACHINE TO GET THEM. PT REPORTS HE IS "WORKING ON IT", ONLY THIS LAST YEAR BEING DIAGNOSED WITH DIABETES. EDUCATED PT ON DIET AND REPRECUSSIONS OF ELEVATED BLOOD SUGARS. LITTLE TO NO SWELLING NOTED TO R FACE. REPORTS MINIMAL PAIN. VSS. WILL CONTINUE TO MONITOR.
--- NOTE | 2019-02-23 08:40 | NUR ---
REPORT FROM MADISON GALINDO. ASSUMED PT CARE AT THIS TIME. PT OUT OF ROOM. COMES AND GOES FREELY.
--- NOTE | 2019-02-23 09:14 | NUR ---
PT MEDICATED WITH INSULIN PER EMAR. ALSO MEDICATED WITH FLORASTAR PER EMAR. PT IN STREET CLOTHES ASKS FOR A CIGARETTE. PT REFUSED LOVENOX. PT ALERT AND ORIENTED. ASSESSMENT CHARTED.
--- NOTE | 2019-02-23 10:03 | NUR ---
DR MAHONEY TO ROOM, PLAN TO DC PT HOME.
--- NOTE | 2019-02-23 10:10 | NUR ---
PT NOTED LEAVING UNIT.
[2019-02-23] MEDS ORDERED: Florastor250 MG PO (10:26)
[2019-02-23] MEDS ORDERED: Augmentin 875-1 EACH PO (10:27)
--- NOTE | 2019-02-23 10:46 | NUR ---
20G TO RIGHT UPPER ARM DC, TIP INTACT. DRESSING PLACED. PT MED RX FAXED TO [facility] PER PT REQUEST. PT STATES THAT HIS GRANDMOTHER WILL BE BY AROUND 2PM TO PICK HIM UP. PT RESUMES LYING IN BED.
--- NOTE | 2019-02-23 11:20 | NUR ---
PT NOT IN ROOM FOR CBG. WILL CHECK BACK LATER.
--- NOTE | 2019-02-23 12:09 | NUR ---
LUNCH TRAY PROVIDED, PT NOT IN ROOM.
--- NOTE | 2019-02-23 12:25 | NUR ---
PT NOTED COMING BACK TO ROOM. STATES GRANDMOTHER SHOULD BE HERE AROUND 2-230.
--- NOTE | 2019-02-23 12:31 | NUR ---
PT DECLINED BLOOD SUGAR CHECK. STATES HES LEAVING SOON SO HE WILL MANAGE HIMSELF. MILK PROVIDED.
--- NOTE | 2019-02-23 12:34 | NUR ---
PT NOTED LEAVING ROOM/DEPT WITH FRIEND.
--- NOTE | 2019-02-23 13:45 | NUR ---
PT STILL NOT IN ROOM. STAFF FROM [facility] HERE TO SEE PT. WILL FOLLOWUP OP.
--- NOTE | 2019-02-23 14:22 | NUR ---
PT BACK TO ROOM. OFFERED TO DC PT NOW AND LET HIM PUT HIS BELONGINGS IN A WC TO TAKE WITH. PT STATES "CANT WE WAIT ANOTHER 30 MIN." EXPLAINED TO PT THAT HE IS NOT TO LEAVE THE ROOM AGAIN UNTIL DC. PT VERBALIZED UNDERSTANDING. ICE WATER PROVIDED.
--- NOTE | 2019-02-23 15:09 | NUR ---
PT DC HOME. ALL BELONGINGS GATHERED. PT USING WC TO PUSH BELONGING AROUND.
== END 2019-02-23 15:09 | disposition home or self-care (01) | DRG 603 ==
LOC: ER 07:29 → MEDS 07:51
PROVIDERS: Emergency Medicine; ADMIT Internal Medicine
DX: L03.211 Cellulitis of face (principal); E10.9 Type 1 diabetes mellitus without complications; F19.90 Other psychoactive substance use, unspecified, uncomplicated; F17.200 Nicotine dependence, unspecified, uncomplicated; Z79.4 Long term (current) use of insulin; Z88.5 Allergy status to narcotic agent
CPT/HCPCS: 36415; 70487; 80048; 82947; 84145; 85025; 96365; 96375; 99284-25; J1885; J2543; J7030; J7120; Q9967

== ENCOUNTER 2019-03-12 01:18 | Emergency (ER) | payer OTHER ==
[~2019-03-12] VITALS: Ht 182.9 cm; Wt 72.6 kg
== END 2019-03-12 03:37 | disposition home or self-care (01) ==
LOC: ER 01:18
DX: E10.649 Type 1 diabetes mellitus with hypoglycemia without coma (principal); E10.65 Type 1 diabetes mellitus with hyperglycemia; F11.20 Opioid dependence, uncomplicated; F17.210 Nicotine dependence, cigarettes, uncomplicated; Z91.14 Patient's other noncompliance with medication regimen; Z88.5 Allergy status to narcotic agent; Z88.1 Allergy status to other antibiotic agents; Z79.899 Other long term (current) drug therapy
CPT/HCPCS: 82947; 99283

== ENCOUNTER 2019-03-14 06:35 | Emergency (ER) | payer OTHER ==
[~2019-03-14] VITALS: Ht 182.9 cm; Wt 72.6 kg
[2019-03-14 08:08] LABS: Base Excess Venous -3.6 mmol/L; Bicarbonate Venous 22.4 mmol/L (24.0-30.0); PCO2 Venous 30.2 mmHg (38-42); pH Blood Venous 7.44 (7.34-7.37)
[2019-03-14 08:14] LABS: BASOPHILS ABSOLUTE AUTO 0.05 K/mm3 (0.00-0.23); BASOPHILS PERCENT AUTO 1 % (0-2); EOSINOPHILS ABSOLUTE AUTO 0.04 K/mm3 (0.00-0.68); EOSINOPHILS PERCENT AUTO 1 % (0-6); Hematocrit 44.3 % (37.0-53.0); Hemoglobin 15.2 g/dL (13.5-17.5); IMMATURE GRAN ABSOLUTE AUTO 0.02 K/mm3 (0.00-0.10); IMMATURE GRAN PERCENT AUTO 0 % (0-1); LYMPHOCYTES ABSOLUTE AUTO 1.32 K/mm3 (0.84-5.20); LYMPHOCYTES PERCENT AUTO 16 % (21-46); MONOCYTES ABSOLUTE AUTO 0.65 K/mm3 (0.16-1.47); MONOCYTES PERCENT AUTO 8 % (4-13); Mean Corpuscular HGB 28.7 pg (26.0-34.0); Mean Corpuscular HGB Conc 34.3 g/dL (31.5-36.5); Mean Corpuscular Volume 84 fL (80-100); Mean Platelet Volume 10.5 fL (9.1-12.4); NEUTROPHILS ABSOLUTE AUTO 5.99 K/mm3 (1.96-9.15); NEUTROPHILS PERCENT AUTO 74 % (41-73); Platelet Count 210 K/mm3 (150-400); RDW Standard Deviation 39.4 fL (35.1-46.3); Red Blood Cell Count 5.29 M/mm3 (4.30-5.90); White Blood Cell Count 8.07 K/mm3 (4.00-11.30)
[2019-03-14 08:41] LABS: Alanine Aminotransfer (ALT/SGP 38 U/L (12-78); Albumin, Blood 3.4 g/dL (3.4-5.0); Albumin/Globulin Ratio 0.9 (0.8-1.8); Alk Phos 126 U/L (50-136); Anion Gap 7 mmol/L (6-16); Aspartate Aminotrans (AST/SGOT 27 U/L (12-37); Bilirubin, Total 0.5 mg/dL (0.1-1.0); Blood Urea Nitrogen 12 mg/dL (8-24); Bun/Creatinine Ratio 20.7 (12.0-20.0); CO2, Blood 19 mmol/L (21-32); Calcium, Blood 8.9 mg/dL (8.5-10.1); Chloride, Blood 108 mmol/L (98-108); Creatinine, Blood 0.58 mg/dL (0.60-1.20); Globulin, Blood 3.8 g/dL (2.2-4.0); Glomerular Filtration Rate >60 (60-); Glucose, Blood 391 mg/dL (70-99); Potassium, Blood 4.3 mmol/L (3.5-5.5); Sodium, Blood 134 mmol/L (136-145); Total Protein, Blood 7.2 g/dL (6.4-8.2)
[2019-03-14 09:07] LABS: Beta-hydroxybutyrate 14.9 mg/dL (0.2-2.8)
== END 2019-03-14 10:06 | disposition left against medical advice (07) ==
LOC: ER 06:35
PROVIDERS: Emergency Medicine
DX: E10.65 Type 1 diabetes mellitus with hyperglycemia (principal); F17.210 Nicotine dependence, cigarettes, uncomplicated; Z88.1 Allergy status to other antibiotic agents; Z88.5 Allergy status to narcotic agent; Z79.899 Other long term (current) drug therapy
CPT/HCPCS: 36415; 80053; 82010; 82803; 82947; 83690; 85025; 96360; 99283-25; J7030

== ENCOUNTER 2019-03-14 12:19 | Emergency (ER) | payer OTHER ==
[~2019-03-14] VITALS: Ht 182.9 cm; Wt 72.6 kg
== END 2019-03-14 15:28 | disposition left against medical advice (07) ==
LOC: ER 12:19
DX: Z53.21 Procedure and treatment not carried out due to patient leaving prior to being seen by health care provider (principal)

== ENCOUNTER 2019-04-03 06:56 | Emergency (ER) | payer OTHER ==
[~2019-04-03] VITALS: Ht 182.9 cm; Wt 72.6 kg
[2019-04-03 08:02] LABS: BASOPHILS ABSOLUTE AUTO 0.05 K/mm3 (0.00-0.23); BASOPHILS PERCENT AUTO 1 % (0-2); EOSINOPHILS ABSOLUTE AUTO 0.05 K/mm3 (0.00-0.68); EOSINOPHILS PERCENT AUTO 1 % (0-6); Hematocrit 42.6 % (37.0-53.0); Hemoglobin 14.4 g/dL (13.5-17.5); IMMATURE GRAN ABSOLUTE AUTO 0.05 K/mm3 (0.00-0.10); IMMATURE GRAN PERCENT AUTO 1 % (0-1); LYMPHOCYTES ABSOLUTE AUTO 1.28 K/mm3 (0.84-5.20); LYMPHOCYTES PERCENT AUTO 19 % (21-46); MONOCYTES ABSOLUTE AUTO 0.32 K/mm3 (0.16-1.47); MONOCYTES PERCENT AUTO 5 % (4-13); Mean Corpuscular HGB 28.8 pg (26.0-34.0); Mean Corpuscular HGB Conc 33.8 g/dL (31.5-36.5); Mean Corpuscular Volume 85 fL (80-100); Mean Platelet Volume 10.4 fL (9.1-12.4); NEUTROPHILS ABSOLUTE AUTO 5.12 K/mm3 (1.96-9.15); NEUTROPHILS PERCENT AUTO 75 % (41-73); Platelet Count 218 K/mm3 (150-400); RDW Standard Deviation 39.9 fL (35.1-46.3); White Blood Cell Count 6.87 K/mm3 (4.00-11.30)
[2019-04-03 08:24] LABS: Alanine Aminotransfer (ALT/SGP 68 U/L (12-78); Albumin, Blood 3.6 g/dL (3.4-5.0); Alk Phos 126 U/L (50-136); Anion Gap 3 mmol/L (6-16); Aspartate Aminotrans (AST/SGOT 30 U/L (12-37); Bilirubin, Total 0.4 mg/dL (0.1-1.0); Blood Urea Nitrogen 18 mg/dL (8-24); Bun/Creatinine Ratio 31.2 (12.0-20.0); CO2, Blood 27 mmol/L (21-32); Chloride, Blood 103 mmol/L (98-108); Creatinine, Blood 0.58 mg/dL (0.60-1.20); Globulin, Blood 3.7 g/dL (2.2-4.0); Glomerular Filtration Rate >60 (60-); Glucose, Blood 567 mg/dL (70-99); Potassium, Blood 4.3 mmol/L (3.5-5.5); Sodium, Blood 133 mmol/L (136-145); Total Protein, Blood 7.3 g/dL (6.4-8.2)
== END 2019-04-03 09:30 | disposition home or self-care (01) ==
LOC: ER 06:56
PROVIDERS: Emergency Medicine
DX: S20.211A Contusion of right front wall of thorax, initial encounter (principal); E10.65 Type 1 diabetes mellitus with hyperglycemia; F11.23 Opioid dependence with withdrawal; F17.210 Nicotine dependence, cigarettes, uncomplicated; Z88.5 Allergy status to narcotic agent; Z88.1 Allergy status to other antibiotic agents; Z79.899 Other long term (current) drug therapy; Y04.2XXA Assault by strike against or bumped into by another person, initial encounter
CPT/HCPCS: 36415; 71046; 80053; 82010; 82800; 82947; 85025; 96361; 96374; 99284-25; A9270; J2550; J7030

== ENCOUNTER 2019-04-04 06:48 | Emergency (ER) | payer OTHER | END 2019-04-04 08:11 | disposition left against medical advice (07) | LOC: ER 06:48 | DX: Z53.21 Procedure and treatment not carried out due to patient leaving prior to being seen by health care provider (principal) ==

== ENCOUNTER 2019-04-13 16:42 | Emergency (ER) | payer OTHER ==
[~2019-04-13] VITALS: Ht 182.9 cm; Wt 72.6 kg
[2019-04-13 17:43] LABS: BASOPHILS ABSOLUTE AUTO 0.05 K/mm3 (0.00-0.23); BASOPHILS PERCENT AUTO 1 % (0-2); EOSINOPHILS ABSOLUTE AUTO 0.12 K/mm3 (0.00-0.68); EOSINOPHILS PERCENT AUTO 1 % (0-6); Hematocrit 44.2 % (37.0-53.0); Hemoglobin 15.2 g/dL (13.5-17.5); IMMATURE GRAN ABSOLUTE AUTO 0.04 K/mm3 (0.00-0.10); IMMATURE GRAN PERCENT AUTO 0 % (0-1); LYMPHOCYTES ABSOLUTE AUTO 2.83 K/mm3 (0.84-5.20); LYMPHOCYTES PERCENT AUTO 31 % (21-46); MONOCYTES ABSOLUTE AUTO 0.67 K/mm3 (0.16-1.47); MONOCYTES PERCENT AUTO 7 % (4-13); Mean Corpuscular HGB 28.7 pg (26.0-34.0); Mean Corpuscular HGB Conc 34.4 g/dL (31.5-36.5); Mean Corpuscular Volume 84 fL (80-100); Mean Platelet Volume 10.9 fL (9.1-12.4); NEUTROPHILS ABSOLUTE AUTO 5.49 K/mm3 (1.96-9.15); NEUTROPHILS PERCENT AUTO 60 % (41-73); Platelet Count 271 K/mm3 (150-400); RDW Coefficient Variation 13.1 % (11.7-14.2); RDW Standard Deviation 40.5 fL (35.1-46.3); Red Blood Cell Count 5.29 M/mm3 (4.30-5.90)
[2019-04-13 17:47] LABS: Source, Urine Clean Catch
[2019-04-13 17:49] LABS: Bilirubin, Urine Neg (Neg); Blood, Urine Neg (Neg); Glucose Qualitative, Urine 4+ (Neg); Ketones, Urine Neg (Neg); Leukocyte Esterase, Urine Neg (Neg); Nitrite, Urine Neg (Neg); Protein, Urine Neg (Neg); Urobilinogen, Urine NORM (Normal)
[2019-04-13 17:54] LABS: Appearance, Urine Clear (Clear); Color, Urine Yellow (P-Yellow)
[2019-04-13 17:57] LABS: Alanine Aminotransfer (ALT/SGP 62 U/L (12-78); Albumin, Blood 3.5 g/dL (3.4-5.0); Alk Phos 133 U/L (50-136); Anion Gap 7 mmol/L (6-16); Aspartate Aminotrans (AST/SGOT 28 U/L (12-37); Beta-hydroxybutyrate 1.8 mg/dL (0.2-2.8); Bilirubin, Total 0.3 mg/dL (0.1-1.0); Blood Urea Nitrogen 24 mg/dL (8-24); Bun/Creatinine Ratio 45.2 (12.0-20.0); CO2, Blood 25 mmol/L (21-32); Calcium, Blood 9.1 mg/dL (8.5-10.1); Chloride, Blood 96 mmol/L (98-108); Creatinine, Blood 0.53 mg/dL (0.60-1.20); Globulin, Blood 3.4 g/dL (2.2-4.0); Glomerular Filtration Rate >60 (60-); Glucose, Blood 470 mg/dL (70-99); Magnesium, Blood 1.9 mg/dL (1.6-2.4); Potassium, Blood 3.6 mmol/L (3.5-5.5); Sodium, Blood 128 mmol/L (136-145); Total Protein, Blood 6.9 g/dL (6.4-8.2)
== END 2019-04-13 18:38 | disposition left against medical advice (07) ==
LOC: ER 16:42
PROVIDERS: Emergency Medicine
DX: E10.65 Type 1 diabetes mellitus with hyperglycemia (principal); Z91.19 Patient's noncompliance with other medical treatment and regimen; Z88.1 Allergy status to other antibiotic agents; Z88.5 Allergy status to narcotic agent; F17.210 Nicotine dependence, cigarettes, uncomplicated
CPT/HCPCS: 80053; 81003; 82010; 82947; 83735; 85025; 99283; J1815; J7030

== ENCOUNTER 2019-04-14 11:19 | Emergency (ER) | payer OTHER ==
[~2019-04-14] VITALS: Ht 182.9 cm; Wt 70.3 kg
== END 2019-04-14 11:23 | disposition left against medical advice (07) ==
LOC: ER 11:19
DX: Z53.21 Procedure and treatment not carried out due to patient leaving prior to being seen by health care provider (principal)

== ENCOUNTER 2019-04-14 11:52 | Emergency (ER) | payer OTHER ==
[~2019-04-14] VITALS: Ht 182.9 cm; Wt 70.3 kg
== END 2019-04-14 13:41 | disposition home or self-care (01) ==
LOC: ER 11:52
DX: E10.65 Type 1 diabetes mellitus with hyperglycemia (principal); F17.210 Nicotine dependence, cigarettes, uncomplicated; Z88.5 Allergy status to narcotic agent; Z88.8 Allergy status to other drugs, medicaments and biological substances
CPT/HCPCS: 82947; 99283

== ENCOUNTER 2019-04-18 23:45 | Emergency (ER) | payer OTHER ==
[~2019-04-18] VITALS: Ht 182.9 cm; Wt 70.3 kg
== END 2019-04-19 01:44 | disposition home or self-care (01) ==
LOC: ER 23:45
DX: L02.01 Cutaneous abscess of face (principal); L03.211 Cellulitis of face; E10.9 Type 1 diabetes mellitus without complications; F17.210 Nicotine dependence, cigarettes, uncomplicated; Z88.8 Allergy status to other drugs, medicaments and biological substances; Z88.5 Allergy status to narcotic agent
CPT/HCPCS: 96365; 96375; 99283-25; J2930

== ENCOUNTER 2019-05-05 12:43 | Emergency (ER) | payer OTHER ==
[~2019-05-05] VITALS: Ht 180.3 cm; Wt 70.3 kg
[2019-05-05] MEDS ORDERED: BASALGAR SC (13:32)
== END 2019-05-05 14:24 | disposition home or self-care (01) ==
LOC: ER 12:43
DX: S00.83XA Contusion of other part of head, initial encounter (principal); E10.9 Type 1 diabetes mellitus without complications; F17.210 Nicotine dependence, cigarettes, uncomplicated; Z88.8 Allergy status to other drugs, medicaments and biological substances; Z88.1 Allergy status to other antibiotic agents; Y04.2XXA Assault by strike against or bumped into by another person, initial encounter
CPT/HCPCS: 70450; 72125; 99284-25; L0160

== ENCOUNTER 2019-05-09 06:34 | Emergency (ER) | payer OTHER ==
[~2019-05-09] VITALS: Ht 182.9 cm; Wt 68.0 kg
[~2019-05-09 06:34] MED LIST changes: +BASALGAR SC
[2019-05-09 06:54] LABS: Source, Urine Voided
[2019-05-09 06:59] LABS: BASOPHILS ABSOLUTE AUTO 0.04 K/mm3 (0.00-0.23); BASOPHILS PERCENT AUTO 0 % (0-2); EOSINOPHILS ABSOLUTE AUTO 0.08 K/mm3 (0.00-0.68); EOSINOPHILS PERCENT AUTO 1 % (0-6); Hematocrit 46.4 % (37.0-53.0); Hemoglobin 16.3 g/dL (13.5-17.5); IMMATURE GRAN ABSOLUTE AUTO 0.06 K/mm3 (0.00-0.10); IMMATURE GRAN PERCENT AUTO 1 % (0-1); LYMPHOCYTES ABSOLUTE AUTO 2.81 K/mm3 (0.84-5.20); LYMPHOCYTES PERCENT AUTO 29 % (21-46); MONOCYTES ABSOLUTE AUTO 0.89 K/mm3 (0.16-1.47); MONOCYTES PERCENT AUTO 9 % (4-13); Mean Corpuscular HGB 28.4 pg (26.0-34.0); Mean Corpuscular HGB Conc 35.1 g/dL (31.5-36.5); Mean Corpuscular Volume 81 fL (80-100); Mean Platelet Volume 10.4 fL (9.1-12.4); NEUTROPHILS ABSOLUTE AUTO 5.68 K/mm3 (1.96-9.15); NEUTROPHILS PERCENT AUTO 60 % (41-73); Platelet Count 258 K/mm3 (150-400); RDW Coefficient Variation 12.9 % (11.7-14.2); RDW Standard Deviation 37.2 fL (35.1-46.3); Red Blood Cell Count 5.73 M/mm3 (4.30-5.90); White Blood Cell Count 9.56 K/mm3 (4.00-11.30)
[2019-05-09 07:05] LABS: Appearance, Urine Clear (Clear); Bilirubin, Urine Neg (Neg); Blood, Urine Neg (Neg); Color, Urine Yellow (P-Yellow); Glucose Qualitative, Urine 4+ (Neg); Ketones, Urine 4+ (Neg); Leukocyte Esterase, Urine Neg (Neg); Nitrite, Urine Neg (Neg); Protein, Urine Neg (Neg); Urobilinogen, Urine NORM (Normal)
[2019-05-09 07:17] LABS: Alanine Aminotransfer (ALT/SGP 100 U/L (12-78); Albumin, Blood 3.8 g/dL (3.4-5.0); Albumin/Globulin Ratio 0.9 (0.8-1.8); Alk Phos 156 U/L (50-136); Anion Gap 8 mmol/L (6-16); Aspartate Aminotrans (AST/SGOT 43 U/L (12-37); Bilirubin, Total 0.6 mg/dL (0.1-1.0); Blood Urea Nitrogen 16 mg/dL (8-24); Bun/Creatinine Ratio 20.8 (12.0-20.0); CO2, Blood 25 mmol/L (21-32); Calcium, Blood 9.6 mg/dL (8.5-10.1); Chloride, Blood 99 mmol/L (98-108); Creatinine, Blood 0.77 mg/dL (0.60-1.20); Ethanol (Alcohol), Blood, Med <3 mg/dL; Globulin, Blood 4.1 g/dL (2.2-4.0); Glomerular Filtration Rate >60 (60-); Glucose, Blood 449 mg/dL (70-99); Potassium, Blood 4.1 mmol/L (3.5-5.5); Salicylate 3.6 mg/dL (2.8-20.0); Sodium, Blood 132 mmol/L (136-145); Total Protein, Blood 7.9 g/dL (6.4-8.2)
[2019-05-09 07:32] LABS: Acetaminophen, Random <2.0 ug/mL (10.0-30.0)
[2019-05-09 07:38] LABS: U Amphetamine Screen Not Detected; U Barbituate Screen Not Detected; U Benzodiazapine Screen Not Detected; U Buprenorphine Screen DETECTED; U Cannabinoids Screen DETECTED; U Cocaine Screen Not Detected; U Methadone Screen Not Detected; U Methamphetamine Screen Not Detected; U Opiates Screen DETECTED; U Oxycodone Screen Not Detected; U Phencyclidine Screen Not Detected; U Propoxyphene Screen Not Detected
== END 2019-05-09 10:46 | disposition home or self-care (01) ==
LOC: ER 06:34
PROVIDERS: Emergency Medicine
DX: R45.851 Suicidal ideations (principal); E10.65 Type 1 diabetes mellitus with hyperglycemia; F11.23 Opioid dependence with withdrawal; E87.1 Hypo-osmolality and hyponatremia; F17.200 Nicotine dependence, unspecified, uncomplicated; Z88.8 Allergy status to other drugs, medicaments and biological substances; Z88.5 Allergy status to narcotic agent
CPT/HCPCS: 36415; 80053; 81003; 82947; 85025; 96360; 96361; 99284-25; G0480; J1815; J7030

== ENCOUNTER 2019-05-23 15:21 | Emergency (ER) | payer OTHER ==
[~2019-05-23] VITALS: Ht 182.9 cm; Wt 72.6 kg
[~2019-05-23 15:21] MED LIST changes: +BASAGLAR K100 UNIT/2 SC; -BASALGAR SC
[2019-05-23 16:00] LABS: Source, Urine Clean Catch
[2019-05-23 16:05] LABS: Base Excess Venous 5.9 mmol/L; Bicarbonate Venous 28.5 mmol/L (24.0-30.0); PCO2 Venous 41.2 mmHg (38-42); PO2 Venous 38.4 mmHg (38-42); pH Blood Venous 7.47 (7.34-7.37)
[2019-05-23 16:06] LABS: BASOPHILS ABSOLUTE AUTO 0.03 K/mm3 (0.00-0.23); BASOPHILS PERCENT AUTO 0 % (0-2); EOSINOPHILS ABSOLUTE AUTO 0.07 K/mm3 (0.00-0.68); EOSINOPHILS PERCENT AUTO 1 % (0-6); Hematocrit 43.3 % (37.0-53.0); Hemoglobin 15.5 g/dL (13.5-17.5); IMMATURE GRAN ABSOLUTE AUTO 0.02 K/mm3 (0.00-0.10); IMMATURE GRAN PERCENT AUTO 0 % (0-1); LYMPHOCYTES ABSOLUTE AUTO 2.38 K/mm3 (0.84-5.20); LYMPHOCYTES PERCENT AUTO 26 % (21-46); MONOCYTES ABSOLUTE AUTO 0.82 K/mm3 (0.16-1.47); MONOCYTES PERCENT AUTO 9 % (4-13); Mean Corpuscular HGB 28.9 pg (26.0-34.0); Mean Corpuscular HGB Conc 35.8 g/dL (31.5-36.5); Mean Corpuscular Volume 81 fL (80-100); Mean Platelet Volume 9.9 fL (9.1-12.4); NEUTROPHILS ABSOLUTE AUTO 5.77 K/mm3 (1.96-9.15); NEUTROPHILS PERCENT AUTO 64 % (41-73); Platelet Count 311 K/mm3 (150-400); RDW Coefficient Variation 13.1 % (11.7-14.2); RDW Standard Deviation 37.8 fL (35.1-46.3); Red Blood Cell Count 5.37 M/mm3 (4.30-5.90); White Blood Cell Count 9.09 K/mm3 (4.00-11.30)
[2019-05-23 16:06] LABS: Bilirubin, Urine Neg (Neg); Blood, Urine Neg (Neg); Glucose Qualitative, Urine 4+ (Neg); Ketones, Urine Neg (Neg); Leukocyte Esterase, Urine Neg (Neg); Nitrite, Urine Neg (Neg); Protein, Urine Neg (Neg); Urobilinogen, Urine NORM (Normal)
[2019-05-23 16:09] LABS: Appearance, Urine Clear (Clear); Color, Urine Yellow (P-Yellow)
[2019-05-23 16:24] LABS: Alanine Aminotransfer (ALT/SGP 69 U/L (12-78); Albumin, Blood 4.2 g/dL (3.4-5.0); Alk Phos 126 U/L (50-136); Anion Gap 8 mmol/L (6-16); Aspartate Aminotrans (AST/SGOT 24 U/L (12-37); Bilirubin, Total 0.8 mg/dL (0.1-1.0); Blood Urea Nitrogen 18 mg/dL (8-24); Bun/Creatinine Ratio 19.2 (12.0-20.0); CO2, Blood 28 mmol/L (21-32); Chloride, Blood 94 mmol/L (98-108); Creatinine, Blood 0.94 mg/dL (0.60-1.20); Globulin, Blood 4.4 g/dL (2.2-4.0); Glomerular Filtration Rate >60 (60-); Glucose, Blood 477 mg/dL (70-99); Potassium, Blood 3.2 mmol/L (3.5-5.5); Sodium, Blood 130 mmol/L (136-145); Total Protein, Blood 8.6 g/dL (6.4-8.2)
[2019-05-23 16:37] LABS: U Amphetamine Screen Not Detected; U Barbituate Screen Not Detected; U Benzodiazapine Screen Not Detected; U Cocaine Screen Not Detected; U Methadone Screen Not Detected; U Methamphetamine Screen DETECTED; U Opiates Screen DETECTED
[2019-05-23 16:38] LABS: U Buprenorphine Screen Not Detected; U Cannabinoids Screen Not Detected; U Oxycodone Screen Not Detected; U Phencyclidine Screen Not Detected; U Propoxyphene Screen Not Detected
== END 2019-05-23 17:45 | disposition home or self-care (01) ==
LOC: ER 15:21
PROVIDERS: Emergency Medicine; Physician Assistant
DX: E11.65 Type 2 diabetes mellitus with hyperglycemia (principal); F15.10 Other stimulant abuse, uncomplicated; F11.10 Opioid abuse, uncomplicated; R11.15 Cyclical vomiting syndrome unrelated to migraine; R11.0 Nausea; F17.210 Nicotine dependence, cigarettes, uncomplicated; Z91.14 Patient's other noncompliance with medication regimen; Z88.5 Allergy status to narcotic agent; Z88.8 Allergy status to other drugs, medicaments and biological substances; Z79.4 Long term (current) use of insulin
CPT/HCPCS: 36415; 80053; 81003; 82803; 82947; 83690; 85025; 96361; 96374; 96375; 99283-25; J1200; J2405; J2550; J7030

== ENCOUNTER 2019-06-08 13:35 | Emergency (ER) | payer OTHER | END 2019-06-08 13:56 | disposition left against medical advice (07) | LOC: ER 13:35 | DX: Z53.21 Procedure and treatment not carried out due to patient leaving prior to being seen by health care provider (principal) ==

== ENCOUNTER 2019-06-30 15:22 | Emergency (ER) | payer SELFPAY ==
[~2019-06-30] VITALS: Ht 180.3 cm; Wt 70.3 kg
== END 2019-06-30 15:34 | disposition left against medical advice (07) ==
LOC: ER 15:22
DX: Z53.21 Procedure and treatment not carried out due to patient leaving prior to being seen by health care provider (principal); R11.10 Vomiting, unspecified

== ENCOUNTER 2019-07-08 07:07 | Observation (INO) | payer OTHER ==
[~2019-07-08] VITALS: Ht 182.9 cm; Wt 70.3 kg
[2019-07-08 07:48] LABS: BASOPHILS ABSOLUTE AUTO 0.07 K/mm3 (0.00-0.23); BASOPHILS PERCENT AUTO 1 % (0-2); EOSINOPHILS ABSOLUTE AUTO 0.11 K/mm3 (0.00-0.68); EOSINOPHILS PERCENT AUTO 1 % (0-6); Hematocrit 46.2 % (37.0-53.0); Hemoglobin 16.1 g/dL (13.5-17.5); IMMATURE GRAN ABSOLUTE AUTO 0.03 K/mm3 (0.00-0.10); IMMATURE GRAN PERCENT AUTO 0 % (0-1); LYMPHOCYTES ABSOLUTE AUTO 2.58 K/mm3 (0.84-5.20); LYMPHOCYTES PERCENT AUTO 32 % (21-46); MONOCYTES ABSOLUTE AUTO 0.65 K/mm3 (0.16-1.47); MONOCYTES PERCENT AUTO 8 % (4-13); Mean Corpuscular HGB 28.8 pg (26.0-34.0); Mean Corpuscular HGB Conc 34.8 g/dL (31.5-36.5); Mean Corpuscular Volume 83 fL (80-100); Mean Platelet Volume 10.4 fL (9.1-12.4); NEUTROPHILS ABSOLUTE AUTO 4.66 K/mm3 (1.96-9.15); NEUTROPHILS PERCENT AUTO 57 % (41-73); Platelet Count 270 K/mm3 (150-400); RDW Coefficient Variation 13.2 % (11.7-14.2)
[2019-07-08 08:02] LABS: pH Blood Venous 7.38 (7.34-7.37)
[2019-07-08 08:03] LABS: Base Excess Venous 0.3 mmol/L; Bicarbonate Venous 24.4 mmol/L (24.0-30.0); PCO2 Venous 43.4 mmHg (38-42)
[2019-07-08 08:21] LABS: Beta-hydroxybutyrate 1.6 mg/dL (0.2-2.8)
[2019-07-08 08:23] LABS: Alanine Aminotransfer (ALT/SGP 36 U/L (12-78); Albumin, Blood 4.1 g/dL (3.4-5.0); Alk Phos 214 U/L (50-136); Anion Gap 9 mmol/L (6-16); Aspartate Aminotrans (AST/SGOT 21 U/L (12-37); Bilirubin, Total 0.6 mg/dL (0.1-1.0); Blood Urea Nitrogen 15 mg/dL (8-24); Bun/Creatinine Ratio 23.4 (12.0-20.0); CO2, Blood 26 mmol/L (21-32); Calcium, Blood 9.1 mg/dL (8.5-10.1); Chloride, Blood 91 mmol/L (98-108); Creatinine, Blood 0.64 mg/dL (0.60-1.20); Globulin, Blood 4.2 g/dL (2.2-4.0); Glomerular Filtration Rate >60 (60-); Glucose, Blood 827 mg/dL (70-99); Potassium, Blood 4.1 mmol/L (3.5-5.5); Sodium, Blood 126 mmol/L (136-145); Total Protein, Blood 8.3 g/dL (6.4-8.2)
--- NOTE | 2019-07-08 15:44 | NUR ---
PT DC'D HOME. DC EDUCATION PROVIDED. EXPLAINED HIS ALIYA FILL INSULIN RX AND TO GET THEM AT [facility]. FOLLOW UP APPT MADE FOR HIM. TIME, DATE AND ADDRESS PROVIDED FOR HIM WITH HIS DC PAPERWORK. PATIENT STATED HE HAS NO QUESTIONS OR CONCERNS REGARDING HIS DC INSTRUCTIONS AND PAPERWORK.
== END 2019-07-08 15:41 | disposition home or self-care (01) ==
LOC: ER 07:07 → MEDS 07:08 → ER 09:11 → MEDS 09:11
PROVIDERS: Emergency Medicine; ADMIT Internal Medicine
DX: E10.65 Type 1 diabetes mellitus with hyperglycemia (principal); F17.210 Nicotine dependence, cigarettes, uncomplicated; Z79.4 Long term (current) use of insulin; Z91.14 Patient's other noncompliance with medication regimen
CPT/HCPCS: 36415; 80053; 82010; 82803; 82947; 83690; 85025; 96360; 99285-25; G0378; J1815; J7030

== ENCOUNTER 2019-07-13 01:40 | Emergency (ER) | payer OTHER ==
[~2019-07-13] VITALS: Ht 182.9 cm; Wt 70.3 kg
[2019-07-13 02:15] LABS: Calcium, Ionized (POC) 1.09 mmol/L (1.10-1.46); Chloride (POC) 92 mmol/L (98-108); Creatinine (POC) 0.7 mg/dL (0.8-1.3); Glucose (ISTAT POC) 640 mg/dL (70-99); Hemoglobin (POC) 13.9 g/dL (13.5-17.5); Potassium (POC) 3.8 mmol/L (3.5-5.5); Sodium (POC) 128 mmol/L (135-148); Total CO2 (POC) 23 mmol/L (21-32)
== END 2019-07-13 03:10 | disposition home or self-care (01) ==
LOC: ER 01:40
PROVIDERS: Emergency Medicine
DX: E10.65 Type 1 diabetes mellitus with hyperglycemia (principal); Z88.5 Allergy status to narcotic agent; Z88.8 Allergy status to other drugs, medicaments and biological substances; F17.210 Nicotine dependence, cigarettes, uncomplicated
CPT/HCPCS: 36415; 80047; 85014; 96360; 99283-25; J7030

== ENCOUNTER 2019-07-14 18:57 | Emergency (ER) | payer OTHER ==
[~2019-07-14] VITALS: Ht 182.9 cm; Wt 68.0 kg
== END 2019-07-14 20:34 | disposition left against medical advice (07) ==
LOC: ER 18:57
DX: Z53.21 Procedure and treatment not carried out due to patient leaving prior to being seen by health care provider (principal)

== ENCOUNTER 2019-07-16 17:26 | Observation (INO) | payer OTHER ==
[~2019-07-16] VITALS: Ht 182.9 cm; Wt 66.8 kg
[2019-07-16 20:30] LABS: Calcium, Ionized (POC) 1.09 mmol/L (1.10-1.46); Chloride (POC) 86 mmol/L (98-108); Creatinine (POC) 0.8 mg/dL (0.8-1.3); Glucose (ISTAT POC) >700 mg/dL (70-99); Hemoglobin (POC) 15.3 g/dL (13.5-17.5); Sodium (POC) 125 mmol/L (135-148); Total CO2 (POC) 28 mmol/L (21-32)
[2019-07-16 20:48] LABS: BASOPHILS ABSOLUTE AUTO 0.04 K/mm3 (0.00-0.23); BASOPHILS PERCENT AUTO 0 % (0-2); EOSINOPHILS ABSOLUTE AUTO 0.12 K/mm3 (0.00-0.68); EOSINOPHILS PERCENT AUTO 1 % (0-6); Hematocrit 42.5 % (37.0-53.0); Hemoglobin 15.4 g/dL (13.5-17.5); IMMATURE GRAN ABSOLUTE AUTO 0.03 K/mm3 (0.00-0.10); IMMATURE GRAN PERCENT AUTO 0 % (0-1); LYMPHOCYTES ABSOLUTE AUTO 3.11 K/mm3 (0.84-5.20); LYMPHOCYTES PERCENT AUTO 35 % (21-46); MONOCYTES ABSOLUTE AUTO 0.52 K/mm3 (0.16-1.47); MONOCYTES PERCENT AUTO 6 % (4-13); Mean Corpuscular HGB 29.6 pg (26.0-34.0); Mean Corpuscular HGB Conc 36.2 g/dL (31.5-36.5); Mean Corpuscular Volume 82 fL (80-100); Mean Platelet Volume 10.9 fL (9.1-12.4); NEUTROPHILS ABSOLUTE AUTO 5.08 K/mm3 (1.96-9.15); NEUTROPHILS PERCENT AUTO 57 % (41-73); Platelet Count 256 K/mm3 (150-400); RDW Coefficient Variation 13.7 % (11.7-14.2); RDW Standard Deviation 40.1 fL (35.1-46.3); Red Blood Cell Count 5.21 M/mm3 (4.30-5.90)
[2019-07-16 21:06] LABS: Alanine Aminotransfer (ALT/SGP 36 U/L (12-78); Albumin, Blood 3.6 g/dL (3.4-5.0); Albumin/Globulin Ratio 0.9 (0.8-1.8); Alk Phos 168 U/L (50-136); Anion Gap 13 mmol/L (6-16); Aspartate Aminotrans (AST/SGOT 27 U/L (12-37); Bilirubin, Total 0.6 mg/dL (0.1-1.0); Blood Urea Nitrogen 17 mg/dL (8-24); Bun/Creatinine Ratio 23.4 (12.0-20.0); CO2, Blood 26 mmol/L (21-32); Calcium, Blood 8.6 mg/dL (8.5-10.1); Chloride, Blood 88 mmol/L (98-108); Creatinine, Blood 0.73 mg/dL (0.60-1.20); Globulin, Blood 3.8 g/dL (2.2-4.0); Glomerular Filtration Rate >60 (60-); Glucose, Blood 786 mg/dL (70-99); Sodium, Blood 127 mmol/L (136-145); Total Protein, Blood 7.4 g/dL (6.4-8.2)
[2019-07-16 22:56] LABS: Source, Urine Voided
[2019-07-16] MEDS ORDERED: BASAGLAR K100 UNIT/1 SC (22:57)
[2019-07-16] MEDS ORDERED: NOVOLOG FL100 UNIT/1 SC (22:59)
[2019-07-16 23:00] LABS: Bilirubin, Urine Neg (Neg); Blood, Urine Neg (Neg); Color, Urine Pale Yellow (P-Yellow); Glucose Qualitative, Urine 4+ (Neg); Ketones, Urine 2+ (Neg); Leukocyte Esterase, Urine Neg (Neg); Nitrite, Urine Neg (Neg); Protein, Urine Neg (Neg); Urobilinogen, Urine NORM (Normal)
[2019-07-16 23:01] LABS: Appearance, Urine Clear (Clear)
[2019-07-16 23:11] LABS: U Amphetamine Screen Not Detected; U Barbituate Screen Not Detected; U Benzodiazapine Screen Not Detected; U Buprenorphine Screen Not Detected; U Cannabinoids Screen Not Detected; U Cocaine Screen Not Detected; U Methadone Screen Not Detected; U Methamphetamine Screen Not Detected; U Opiates Screen DETECTED; U Oxycodone Screen Not Detected; U Phencyclidine Screen Not Detected; U Propoxyphene Screen Not Detected
[2019-07-16 23:19] LABS: Glucose, Blood 682 mg/dL (70-99)
--- NOTE | 2019-07-16 23:49 | NUR ---
ADMIT PT ARRIVED TO ICU 12 AT 2240 VIA ER BED. PT IS AWAKE, ALERT, AND ORIENTED, BUT DROWSEY. PT IS IRRITABLE AND REFUSING CARE INCLUDING SECOND IV. PT REFUSING LAB DRAWS AT THIS TIME. PT DENIES ANY SUICIDIAL IDEOLOGIES AT TIME OF ADMIT. PT INFORMED OF REMOTE MONITORING CAMERAS IN PLACE DUE TO POSITIVE SUICIDE SCREENING IN ER. VITAL SIGNS STABLE. NS BOLUS INFUSING UPON ARRIVAL. PT STOOD UP TO TRANSFER TO ICU BED. PT VOIDED WITH URINAL AT THIS TIME. ROOM MITIGATED OF HAZARDS AND RISK ASSESSMENTS COMPLETED IN CHART. WILL CONTINUE TO MONITOR.
[2019-07-17 00:48] LABS: Glucose, Blood 360 mg/dL (70-99)
[2019-07-17 03:59] LABS: Hematocrit 36.6 % (37.0-53.0); Mean Corpuscular HGB Conc 35.5 g/dL (31.5-36.5); Mean Corpuscular Volume 82 fL (80-100); Mean Platelet Volume 10.3 fL (9.1-12.4); Platelet Count 213 K/mm3 (150-400); RDW Coefficient Variation 13.6 % (11.7-14.2); RDW Standard Deviation 40.1 fL (35.1-46.3); Red Blood Cell Count 4.49 M/mm3 (4.30-5.90); White Blood Cell Count 7.96 K/mm3 (4.00-11.30)
[2019-07-17 04:29] LABS: Alanine Aminotransfer (ALT/SGP 26 U/L (12-78); Albumin, Blood 2.6 g/dL (3.4-5.0); Albumin/Globulin Ratio 0.9 (0.8-1.8); Alk Phos 112 U/L (50-136); Anion Gap 8 mmol/L (6-16); Aspartate Aminotrans (AST/SGOT 18 U/L (12-37); Bilirubin, Total 0.3 mg/dL (0.1-1.0); Blood Urea Nitrogen 16 mg/dL (8-24); Bun/Creatinine Ratio 28.3 (12.0-20.0); CO2, Blood 26 mmol/L (21-32); Calcium, Blood 7.8 mg/dL (8.5-10.1); Chloride, Blood 107 mmol/L (98-108); Creatinine, Blood 0.57 mg/dL (0.60-1.20); Globulin, Blood 2.8 g/dL (2.2-4.0); Glomerular Filtration Rate >60 (60-); Glucose, Blood 288 mg/dL (70-99); Potassium, Blood 3.3 mmol/L (3.5-5.5); Sodium, Blood 141 mmol/L (136-145); Total Protein, Blood 5.4 g/dL (6.4-8.2)
--- NOTE | 2019-07-17 05:59 | NUR ---
SHIFT SUMMARY NO ACUTE CHANGES THIS SHIFT. PT HAS REMAINED IRRITABLE WITH CARE AND LAB DRAWS. PT HAS SLEPT MOST OF THE SHIFT. VITAL SIGNS HAVE REMAINED STABLE. NS INFUSING AT 75 ML/HR, AND INSULIN GTT AT 2 UNITS/HR. CBG'S TRENDING DOWN TO THE 200'S AT THIS TIME. PT USING URINAL AT BEDSIDE WELL WITH GOOD OUTPUT NOTED. PT CONTINUES TO DENY SUICIDAL IDEATION. REMOTE MONITORING CAMERA REMAINS ON. WILL CONTINUE TO MONITOR AND REPORT OFF TO ONCOMING RN.
--- NOTE | 2019-07-17 07:32 | NUR ---
START OF SHIFT NOTE: RECEIVED REPORT FROM STELLA DAVALOS, RN, ASSUMED CARE, PATIENT IS SLEEPING BUT EASILY AROUSEABLE, ALERT AND ORIENTED, DENIES SUICIDAL IDEATIONS AT THIS TIME, AFEBRILE, NO REPORTS OF PAIN, INSULIN DRIP AT 1.5 AT THIS TIME, LATEST BG 214, PATIENT IS ASKING FOR BREAKFAST, LUNG SOUNDS CLEAR, SR WITH HR IN 50'S, SBP'S IN 110'S, BOWEL TONES PRESENT, URSES URINAL TO VOID, PEDAL PULSES PALPABLE, PATIENT IS ON ROOM CAMERA D/T SI, HE IS A VOLUNTARY HOLD, DR. LEIGH CONSULTED, HYPERGLYCEMIA APPEARS RESOLVED, PATIENTS GAP WAS ALWAYS WNL AND HE WAS NOT IN ACIDOSIS DURING HIS ADMISSION, CALL LIGHT IN REACH, WILL CONTINUE TO MONITOR.
--- NOTE | 2019-07-17 07:59 | NUR ---
PATIENT UP TO ROOM TOILET, HAD BM, URINATE, FLUSHED IT, ATE 100 % OF HIS BREAKFAST, ASKED IMMEDIATELY FOR SUBOXIN, DR. CUEVA WAS CALLED AND SHE STOPPED INSULIN DRIP, PATIENT IS NOW ON MEDIUM SLIDING SCALE HUMALOG KWIK PEN, ALSO POTASSIUM REPLACEMENT WAS ORDERED FOR A K+ OF 3.3, DR. CUEVA WILL SEE PATIENT THIS MORNING.
--- NOTE | 2019-07-17 08:37 | NUR ---
PATIENT AGREED TO TAKE ALL OF HIS MEDICATIONS, INCLUDING LOVENOX AND LANTUS, CALL LIGHT IN REACH, WILL CONTINUE TO MONITOR.
--- NOTE | 2019-07-17 09:54 | NUR ---
PATIENT THROWING A FIT IN HIS ROOM ABOUT THE DOCTOR NO SHOWING UP AND STATING "I NEED SUBOXIN", HOWEVER, PROVIDES NO REASON WHY HE NEEDS IT AND FROM WHAT HE IS WITHDRAWING, CALLED DR. CUEVA, SHE WILL BE HERE IN ABOUT HALF AN HOUR, MEANWHILE ORDER FOR XANAX RECEIVED, PATIENT UP TO ROOM TOILET, CALL LIGHT IN REACH, WILL CONTINUE TO MONITOR.
--- NOTE | 2019-07-17 10:51 | NUR ---
PATIENT JUMPING UP OUT OF BED AND YELLING "I AM LEAVING NOW", TAKING ALL MONITORING EQUIPMENT OFF, YELENA VAZQUEZ, CHARGE NURSE NOTIFIED, AND DR. CUEVA, DR. CUEVA IN TO SEE PATIENT AND SPEAK WITH HIM, WILL CONTINUE TO MONITOR.
--- NOTE | 2019-07-17 10:57 | NUR ---
DR. CUEVA ASKED THIS NURSE TO REMOVE PIV, PATIENT MADE MEDICAL STATUS, NO TELEMETRY, SUICIDAL ORDERS D/C'D, WILL TRY TO CONTACT "[facility]" AND SEE IF HE MAY BE ADMITTED TODAY, DR. CUEVA WILL WRITE MEDICATION ORDERS.
--- NOTE | 2019-07-17 11:03 | NUR ---
PER DR. CUEVA, "IF PATIENT WANTS TO LEAVE AMA, HE CAN GO".
--- NOTE | 2019-07-17 11:11 | NUR ---
[facility] WAS CONTACTED AND THEY ARE NOT ADMITTING ANY NEW CLIENTS TODAY, NOT UNTIL TOMORROW.
--- NOTE | 2019-07-17 11:39 | NUR ---
PATIENT'S BLOOD GLUCOSE 472 PRIOR TO LUNCH, COVERED WITH ORDERED SLIDING SCALE, DR. CUEVA NOTIFIED, SHE WILL ORDER HIGH SLIDING SCALE, COVER WITH EXTRA INSULIN AND RECHECK IN ONE HOUR.
--- NOTE | 2019-07-17 11:41 | NUR ---
ATTEMPTED TO CALL STELLA IBARRA RN, ON MEDICAL FLOOR, HE WILL CALL BACK FOR REPORT.
--- NOTE | 2019-07-17 12:28 | NUR ---
REPORT CALLED TO STELLA IBARRA RN, ON MEDICAL FLOOR, PATIENT WILL BE TRANSFERRED TO ROOM 361 WITH ALL HIS BELONGINGS AND MEDICATIONS.
--- NOTE | 2019-07-17 13:23 | NUR ---
PATIENT ARRIVED FROM ICU VIA WHEELCHAIR
--- NOTE | 2019-07-17 17:14 | NUR ---
CONTACTED DR. CUEVA REGARDING PATIENT BLOOD SUGAR READING GREATER THAN [address] CUEVA AWARE. REQUESTED IV ACCESS FOR PATIENT. BEGIN FLUIDS. GIVE HIGH SLIDING SCALE COVERAGE AND CALL BACK IN 1 HR WITH NEW BLOOD SUGAR READING.
--- NOTE | 2019-07-17 17:43 | NUR ---
PATIENT NON COMPLIANCE ATTEMPTED TO DISCUSS DIET WITH PATIENT FOR OPTIMAL BLOOD SUGARS. PATIENT UNRESPONSIVE TO ATTEMPTS. PATIENT REQUESTING SNACKS IN BETWEEN MEALS AND HAVING FAMILY BRING SNACKS. LN TO CONTINUE TO ATTEMPT REACH PATIENT WITH REGARDS TO IMPROVING CBG READINGS.
[2019-07-17 17:57] LABS: Glucose, Blood 707 mg/dL (70-99)
--- NOTE | 2019-07-17 18:11 | NUR ---
SHIFT SUMMARY PATIENT TRANSFERRED FROM ICU. VSS. CBG'S UNSTABLE, PT MADE NPO AND FLUIDS STARTED ON PT. LN TO CONTINUE TO MONITOR.
--- NOTE | 2019-07-17 18:48 | NUR ---
CONTACTED DR. CUEVA NOTIFIED DR. CUEVA OF 707 CBG. NEW ORDERS ENTERED FOR PATIENT.
--- NOTE | 2019-07-18 06:31 | NUR ---
SHIFT SUMMARY PT IS A 28 Y/O MALE, ADMITTED FOR HYPERGLYCEMIA. HE IS A&O X 4, AND INDEPENDENT IN THE ROOM. PT IS A SMOKER, AND LEFT HIS ROOM MULTIPLE TIMES DURING THE NIGHT TO GO OUTSIDE AND SMOKE. PT'S BLOOD SUGAR WAS ELEVATED AT THE START OF SHIFT (SEE PREVIOUS NOTE), BUT CAME DOWN TO 176 BY MIDNIGHT. NO COMPLAINTS OF PAIN, NAUSEA OR SOB. PT RECEIVED NS @ 200 ML/HR, THOUGH THE PT HAD TO BE UNCONNECTED FOR LONG PERIODS OF TIME WHILE SMOKING. VITAL SIGNS STABLE. NO ACUTE CHANGES IN PT CONDITION NOTED. WILL CONTINUE TO MONITOR AND TREAT PER EMAR UNTIL HAND OFF TO DAY SHIFT RN.
--- NOTE | 2019-07-18 07:38 | NUR ---
HIGH CBG PATIENT CBG GREATER THAN 500, ADVISED PATIENT NEED TO DRAW LAB. PATIENT LEFT ROOM WHEN PINKED EDGE SEWING MACHINE OPERATOR WAS DOWN TO PULL DRAW. PROVIDER NOTIFIED.
[2019-07-18 08:45] LABS: Glucose, Blood 564 mg/dL (70-99)
--- NOTE | 2019-07-18 09:43 | NUR ---
PATIENT STATED HE NEEDED TO LEAVE THE HOSPITAL TO GET CHECKED INTO [facility] AT 130PM. STATED HE HAD TO LEAVE IMMEDIATELY. WAS GETTING DRESSED. HAD DISCONTINED HIS IV PUMP. THIS RN REMOVED IV. PATIENT SIGNED AMA FORM.
--- NOTE | 2019-07-18 09:45 | NUR ---
PROVIDER MADE AWARE OF PATIENT LEAVING AMA.
== END 2019-07-18 09:49 | disposition left against medical advice (07) ==
LOC: ER 17:26 → ICUW 17:27 → ER 17:28 → EOR 17:28 → MEDS 21:41 → ICUW 21:41 → EOR 21:41 → ER 21:41 → MEDS 21:41 → EOR 21:41 → ICUW 22:21 → MEDS 07-17 13:04
PROVIDERS: Internal Medicine; ADMIT Emergency Medicine
DX: E10.65 Type 1 diabetes mellitus with hyperglycemia (principal); F11.10 Opioid abuse, uncomplicated; R45.851 Suicidal ideations; F32.9 Major depressive disorder, single episode, unspecified; F17.200 Nicotine dependence, unspecified, uncomplicated; Z71.6 Tobacco abuse counseling; Z91.11 Patient's noncompliance with dietary regimen; Z79.899 Other long term (current) drug therapy
CPT/HCPCS: 36415; 80047; 80053; 81003; 82947; 85014; 85025; 85027; 96360; 96372; 99285-25; G0378; J1650; J1815; J7030

== ENCOUNTER 2019-08-03 04:59 | Observation (INO) | payer OTHER ==
[~2019-08-03] VITALS: Ht 182.9 cm; Wt 70.3 kg
[2019-08-03 05:21] LABS: BASOPHILS ABSOLUTE AUTO 0.04 K/mm3 (0.00-0.23); BASOPHILS PERCENT AUTO 1 % (0-2); EOSINOPHILS ABSOLUTE AUTO 0.01 K/mm3 (0.00-0.68); EOSINOPHILS PERCENT AUTO 0 % (0-6); Hematocrit 44.1 % (37.0-53.0); Hemoglobin 15.2 g/dL (13.5-17.5); IMMATURE GRAN ABSOLUTE AUTO 0.01 K/mm3 (0.00-0.10); IMMATURE GRAN PERCENT AUTO 0 % (0-1); LYMPHOCYTES ABSOLUTE AUTO 2.06 K/mm3 (0.84-5.20); LYMPHOCYTES PERCENT AUTO 34 % (21-46); MONOCYTES ABSOLUTE AUTO 0.49 K/mm3 (0.16-1.47); MONOCYTES PERCENT AUTO 8 % (4-13); Mean Corpuscular HGB Conc 34.5 g/dL (31.5-36.5); Mean Corpuscular Volume 84 fL (80-100); Mean Platelet Volume 10.4 fL (9.1-12.4); NEUTROPHILS ABSOLUTE AUTO 3.53 K/mm3 (1.96-9.15); NEUTROPHILS PERCENT AUTO 57 % (41-73); Platelet Count 267 K/mm3 (150-400); RDW Coefficient Variation 13.5 % (11.7-14.2); RDW Standard Deviation 42.1 fL (35.1-46.3); Red Blood Cell Count 5.24 M/mm3 (4.30-5.90); White Blood Cell Count 6.14 K/mm3 (4.00-11.30)
[2019-08-03 05:44] LABS: Beta-hydroxybutyrate 6.9 mg/dL (0.2-2.8)
[2019-08-03 05:46] LABS: Alanine Aminotransfer (ALT/SGP 55 U/L (12-78); Albumin, Blood 3.5 g/dL (3.4-5.0); Albumin/Globulin Ratio 0.9 (0.8-1.8); Alk Phos 136 U/L (50-136); Anion Gap 11 mmol/L (6-16); Aspartate Aminotrans (AST/SGOT 24 U/L (12-37); Bilirubin, Total 0.7 mg/dL (0.1-1.0); Blood Urea Nitrogen 14 mg/dL (8-24); CO2, Blood 21 mmol/L (21-32); Calcium, Blood 9.1 mg/dL (8.5-10.1); Chloride, Blood 94 mmol/L (98-108); Creatinine, Blood 0.74 mg/dL (0.60-1.20); Glomerular Filtration Rate >60 (60-); Glucose, Blood 909 mg/dL (70-99); Potassium, Blood 4.3 mmol/L (3.5-5.5); Sodium, Blood 126 mmol/L (136-145); Total Protein, Blood 7.5 g/dL (6.4-8.2)
[2019-08-03 11:02] LABS: Anion Gap 12 mmol/L (6-16); Blood Urea Nitrogen 18 mg/dL (8-24); Bun/Creatinine Ratio 24.3 (12.0-20.0); CO2, Blood 19 mmol/L (21-32); Chloride, Blood 100 mmol/L (98-108); Creatinine, Blood 0.74 mg/dL (0.60-1.20); Glomerular Filtration Rate >60 (60-); Glucose, Blood 485 mg/dL (70-99); Potassium, Blood 3.7 mmol/L (3.5-5.5); Sodium, Blood 131 mmol/L (136-145)
--- NOTE | 2019-08-03 11:23 | NUR ---
PER SLICING MACHINE OPERATOR. PATIENT WAS NOT IN HIS ROOM FOR HER TO TRANSPORT HIM TO ROOM 355. FOUND PATIENT IN PATIENT ADVOCATE ROOM. PATIENT ADVOCATED STATED TO SLICING MACHINE OPERATOR SHE WOULD TAKE HIM OUT FOR LAST SMOKE. NOTIFIED OF THIS ARRANGEMENT AT 1120.
--- NOTE | 2019-08-03 13:18 | NUR ---
PATIENT ARRIVED TO THE FLOOR WITH PATIENT ADVOCATE AROUND 1130. PATIENT REQUESTED A SHOWER. BLOOD SUGAR LEVELS CHECKED. PATIENT REQUESTED TO HAVE CLOTHES WASHED. HE CLEANED OUT HIS POCKETS. THREW IN SHARPS WHAT APPEARED TO BE TWO INSULIN SYRINGES. 4 ORANGE TOURNIQUETS. HE HAD PERSONAL BELONGINGS THAT YOKASTA HARRISON STATED TO LEAVE IN A BAG IN HIS PATIENT DRAWER INCLUDED A SPOON WIHT A METAL SUBSTANCE WRAPPED AROUND IT, 2 LIGHTERS, A DEBIT CARD, A PLASTIC OBJECT AND TWO ALCOHOL WIPES. PATIENT WAS NOTED TO HAVE A BROWN/BLACK SMALL SUBSTANCE IN HIS HAND WHICH HE REFUSED TO GIVE TO THIS RN. WHEN PATIENT ARRIVED PATIENT ADVOCATE IN THE ROOM PATIENT TALKED ABOUT PREVIOUS HOSPITAL ADMITS. TO NOTE HE ASKED ABOUT INSULIN VOUCHERS. HE STATED HE THREW HIS LAST VOUCHERS IN THE FIRE BECAUSE HE DID NOT FEEL HE NEEDED THEM.
--- NOTE | 2019-08-03 15:05 | NUR ---
PATIENT LEFT AMA. PRIOR TO LEAVING PATIENT WAS HANDED BACK HIS PERSONAL BELONGINGS THAT HAD BEEN IN LOCK DRAWER. SHORTLY AFTER THIS PATIENT WAS NOTED TO HAVE BEEN IN BATHROOM FOR A LONG PERIOD OF TIME. PATIENT BECAME VERY IRRADIC. THIS RN OPENED ROOM DOOR WITH PATIENT ADVOCATE. WHEN THE DOOR WAS OPENED PATIENT HAD HIS BELT TIGHTENED AROUND HIS NECK TO WHERE HIS COLOR WAS DARK RED. PATIENT TOOK IT OFF AND STATED "I WAS WEARING IT LIKE A BHARATHI". PATIENT THEN WENT BACK TO HIS ROOM. NOTED TO HAVE AN ITEM WRAPPED IN TISSUE PAPER ON BED. LIGHTS STREWN AROUND IN ROOM ON FLOOR. AND THE PLASTIC DEVICE WITH A SMALL PLASTIC ITEM TUCKED IN THE DEVICE. NOTIFIED SUPERISOR. FAST FOOD FRY COOK STATED TO LEAVE BELONGINGS IN ROOM FOR PATIENT TO COLLECT. SECURITY, FAST FOOD FRY COOK, AND COORDINATOR ROBERT WAITING FOR PATIENT TO COLLECT BELONGINGS. AFTER PATIENT LEFT THE ROOM THIS RN WITH FAST FOOD FRY COOK LOOKED FOR ANY LEFT OVER PARAPHENLIA, NON SEEN IN ROOM. PATIENT ESCORTED OUT WITH PATIENT ADVOCATE.
== END 2019-08-03 15:05 | disposition left against medical advice (07) ==
LOC: ER 04:59 → ICUW 05:00 → MEDS 09:33
PROVIDERS: Emergency Medicine; Internal Medicine; ADMIT Internal Medicine
DX: E10.65 Type 1 diabetes mellitus with hyperglycemia (principal); F17.210 Nicotine dependence, cigarettes, uncomplicated; Z88.1 Allergy status to other antibiotic agents; Z88.5 Allergy status to narcotic agent
CPT/HCPCS: 36415; 80048; 80053; 82010; 82947; 83690; 85025; J1815; J7030

== ENCOUNTER 2019-08-12 10:50 | Emergency (ER) | payer OTHER ==
[~2019-08-12] VITALS: Ht 182.9 cm; Wt 70.3 kg
[2019-08-12 11:30] LABS: BASOPHILS ABSOLUTE AUTO 0.07 K/mm3 (0.00-0.23); BASOPHILS PERCENT AUTO 1 % (0-2); EOSINOPHILS ABSOLUTE AUTO 0.05 K/mm3 (0.00-0.68); EOSINOPHILS PERCENT AUTO 1 % (0-6); Hematocrit 40.2 % (37.0-53.0); Hemoglobin 13.7 g/dL (13.5-17.5); IMMATURE GRAN ABSOLUTE AUTO 0.08 K/mm3 (0.00-0.10); IMMATURE GRAN PERCENT AUTO 1 % (0-1); LYMPHOCYTES ABSOLUTE AUTO 2.43 K/mm3 (0.84-5.20); LYMPHOCYTES PERCENT AUTO 23 % (21-46); MONOCYTES ABSOLUTE AUTO 0.48 K/mm3 (0.16-1.47); MONOCYTES PERCENT AUTO 5 % (4-13); Mean Corpuscular HGB 29.3 pg (26.0-34.0); Mean Corpuscular HGB Conc 34.1 g/dL (31.5-36.5); Mean Corpuscular Volume 86 fL (80-100); Mean Platelet Volume 10.4 fL (9.1-12.4); NEUTROPHILS ABSOLUTE AUTO 7.57 K/mm3 (1.96-9.15); NEUTROPHILS PERCENT AUTO 71 % (41-73); Platelet Count 225 K/mm3 (150-400); RDW Coefficient Variation 13.9 % (11.7-14.2); RDW Standard Deviation 42.9 fL (35.1-46.3); Red Blood Cell Count 4.68 M/mm3 (4.30-5.90); White Blood Cell Count 10.68 K/mm3 (4.00-11.30)
[2019-08-12 11:35] LABS: Base Excess Venous 2.7 mmol/L; Bicarbonate Venous 26.4 mmol/L (24.0-30.0); PCO2 Venous 43.8 mmHg (38-42)
[2019-08-12 11:48] LABS: Alanine Aminotransfer (ALT/SGP 151 U/L (12-78); Albumin, Blood 3.2 g/dL (3.4-5.0); Albumin/Globulin Ratio 0.9 (0.8-1.8); Alk Phos 158 U/L (50-136); Anion Gap 7 mmol/L (6-16); Aspartate Aminotrans (AST/SGOT 86 U/L (12-37); Bilirubin, Total 0.2 mg/dL (0.1-1.0); Blood Urea Nitrogen 18 mg/dL (8-24); Bun/Creatinine Ratio 30.5 (12.0-20.0); CO2, Blood 27 mmol/L (21-32); Calcium, Blood 8.6 mg/dL (8.5-10.1); Chloride, Blood 95 mmol/L (98-108); Creatinine, Blood 0.59 mg/dL (0.60-1.20); Globulin, Blood 3.5 g/dL (2.2-4.0); Glomerular Filtration Rate >60 (60-); Glucose, Blood 477 mg/dL (70-99); Potassium, Blood 4.8 mmol/L (3.5-5.5); Sodium, Blood 129 mmol/L (136-145); Total Protein, Blood 6.7 g/dL (6.4-8.2)
[2019-08-12] MEDS ORDERED: NOVOLOG FL100 UNIT/1 SC (13:46)
[2019-08-12] MEDS ORDERED: BASAGLAR K100 UNIT/1 SC (13:46)
== END 2019-08-12 15:06 | disposition home or self-care (01) ==
LOC: ER 10:50
PROVIDERS: Emergency Medicine
DX: E10.65 Type 1 diabetes mellitus with hyperglycemia (principal); F17.210 Nicotine dependence, cigarettes, uncomplicated; Z88.8 Allergy status to other drugs, medicaments and biological substances; Z88.5 Allergy status to narcotic agent
CPT/HCPCS: 36415; 80053; 82803; 82947; 85025; 99283; J1815; J7030

== ENCOUNTER 2019-08-28 12:49 | Emergency (ER) | payer OTHER ==
[~2019-08-28] VITALS: Ht 182.9 cm; Wt 72.6 kg
[2019-08-28 14:21] LABS: Anion Gap 7 mmol/L (6-16); Blood Urea Nitrogen 12 mg/dL (8-24); Bun/Creatinine Ratio 17.1 (12.0-20.0); CO2, Blood 30 mmol/L (21-32); Calcium, Blood 8.9 mg/dL (8.5-10.1); Chloride, Blood 96 mmol/L (98-108); Glomerular Filtration Rate >60 (60-); Glucose, Blood 549 mg/dL (70-99); Sodium, Blood 133 mmol/L (136-145)
== END 2019-08-28 16:33 | disposition home or self-care (01) ==
LOC: ER 12:49
PROVIDERS: Emergency Medicine
DX: R52 Pain, unspecified (principal); E10.65 Type 1 diabetes mellitus with hyperglycemia; T40.1X1A Poisoning by heroin, accidental (unintentional), initial encounter; Z91.14 Patient's other noncompliance with medication regimen; Z88.5 Allergy status to narcotic agent; Z88.8 Allergy status to other drugs, medicaments and biological substances; K58.9 Irritable bowel syndrome, unspecified; F17.210 Nicotine dependence, cigarettes, uncomplicated; V89.2XXA Person injured in unspecified motor-vehicle accident, traffic, initial encounter
CPT/HCPCS: 72040; 80048; 82330; 82800; 82947; 96360; 96361; 99284-25; J1815; J7030

== ENCOUNTER 2019-12-21 11:59 | Emergency (ER) | payer OTHER ==
[~2019-12-21] VITALS: Ht 182.9 cm; Wt 90.7 kg
[2019-12-21 12:28] LABS: Hematocrit 46.3 % (37.0-53.0); Hemoglobin 15.6 g/dL (13.5-17.5); Mean Corpuscular HGB 28.2 pg (26.0-34.0); Mean Corpuscular HGB Conc 33.7 g/dL (31.5-36.5); Mean Corpuscular Volume 84 fL (80-100); Mean Platelet Volume 12.7 fL (9.1-12.4); Platelet Count 157 K/mm3 (150-400); RDW Coefficient Variation 13.1 % (11.7-14.2); Red Blood Cell Count 5.54 M/mm3 (4.30-5.90); White Blood Cell Count 29.16 K/mm3 (4.00-11.30)
[2019-12-21 12:58] LABS: BAND PERCENT MAN 17 % (0-8); BASOPHILS PERCENT MAN 0 % (0-2); EOSINOPHILS ABSOLUTE MAN 0.29 K/mm3 (0.00-0.68); EOSINOPHILS PERCENT MAN 1 % (0-6); LYMPHOCYTES ABSOLUTE MAN 1.45 K/mm3 (0.84-5.20); LYMPHOCYTES PERCENT MAN 5 % (21-46); METAMYELOCYTE ABSOLUTE MAN 0.29 K/mm3 (0.00-0.00); METAMYELOCYTE PERCENT MAN 1 % (0-0); MONOCYTES ABSOLUTE MAN 1.74 K/mm3 (0.16-1.47); MONOCYTES PERCENT MAN 6 % (4-13); MYELOCYTE ABSOLUTE MAN 0.29 K/mm3 (0.00-0.00); MYELOCYTE PERCENT MAN 1 % (0-0); NEUTROPHILS ABSOLUTE MAN 25.07 K/mm3 (1.96-9.15); SEG NEUTROPHILS PERCENT MAN 69 % (41-73); TOTAL CELLS COUNTED 100
[2019-12-21 13:09] LABS: Alanine Aminotransfer (ALT/SGP 114 U/L (12-78); Albumin, Blood 2.9 g/dL (3.4-5.0); Albumin/Globulin Ratio 0.7 (0.8-1.8); Alk Phos 222 U/L (50-136); Anion Gap 16 mmol/L (6-16); Aspartate Aminotrans (AST/SGOT 83 U/L (12-37); Beta-hydroxybutyrate 64.6 mg/dL (0.2-2.8); Bilirubin, Total 1.2 mg/dL (0.1-1.0); Blood Urea Nitrogen 23 mg/dL (8-24); Bun/Creatinine Ratio 28.9 (12.0-20.0); CO2, Blood 22 mmol/L (21-32); Calcium, Blood 9.1 mg/dL (8.5-10.1); Chloride, Blood 100 mmol/L (98-108); Globulin, Blood 4.1 g/dL (2.2-4.0); Glomerular Filtration Rate >60 (60-); Glucose, Blood 443 mg/dL (70-99); Sodium, Blood 138 mmol/L (136-145)
[2019-12-21 13:25] LABS: Source, Urine Clean Catch
[2019-12-21 13:30] LABS: Bilirubin, Urine Neg (Neg); Blood, Urine 4+ (Neg); Glucose Qualitative, Urine 4+ (Neg); Ketones, Urine 4+ (Neg); Leukocyte Esterase, Urine Neg (Neg); Nitrite, Urine Neg (Neg); Protein, Urine Neg (Neg); Urobilinogen, Urine NORM (Normal)
[2019-12-21 13:42] LABS: Appearance, Urine Clear (Clear); Color, Urine Yellow (P-Yellow)
[2019-12-21 13:43] LABS: Bacteria Not Seen /hpf; Squamous Epithelial Cells Not Seen /hpf (Few); White Blood Cells, Urine 0-2 /hpf (0-5)
[2019-12-21] MEDS ORDERED: ONDA4ODT SL (15:10)
[2019-12-21] MEDS ORDERED: PHENERGAN25 MG PR (15:10)
== END 2019-12-21 15:24 | disposition home or self-care (01) ==
LOC: ER 11:59
PROVIDERS: Emergency Medicine
DX: K52.9 Noninfective gastroenteritis and colitis, unspecified (principal); E10.65 Type 1 diabetes mellitus with hyperglycemia; F17.210 Nicotine dependence, cigarettes, uncomplicated
CPT/HCPCS: 74176; 80053; 81001; 82010; 82947; 85025; 96361; 96374; 96375; 96376; 99284-25; J1630; J2550; J7030

== ENCOUNTER 2019-12-22 07:31 | Inpatient (IN) | payer OTHER ==
[~2019-12-22] VITALS: Ht 182.9 cm; Wt 84.6 kg
[2019-12-22 08:38] LABS: U Amphetamine Screen Not Detected; U Barbituate Screen Not Detected; U Benzodiazapine Screen Not Detected; U Buprenorphine Screen Not Detected; U Cannabinoids Screen Not Detected; U Cocaine Screen Not Detected; U Methadone Screen Not Detected; U Methamphetamine Screen Not Detected; U Opiates Screen DETECTED; U Oxycodone Screen Not Detected; U Phencyclidine Screen Not Detected; U Propoxyphene Screen Not Detected
--- NOTE | 2019-12-22 10:00 | NUR ---
ADMIT PT ARRIVED TO ICU 14 AT 0940 VIA ER BED. PT IS AWAKE, ALERT, AND RESTLESS UPON ARRIVAL. PT IS MOANING OUT AND THRASHING AROUND IN ER BED. PT STOOD UP TO TRANSFER TO ICU BED WITH MINIMAL ASSISTANCE. PT CONTINUES TO MOAN OUT AND THRASH AROUND IN BED. PT STATES "MY BACK IS HURTING, DO SOMETHING ABOUT IT." PT THEN PROCEEDES TO REST QUIETLY AND IS DIFFICULT TO ROUSE. PT MUMBLES AND DOES NOT ANSWER QUESTIONS. VITAL SIGNS STABLE. PT ON ROOM AIR. INSULIN GTT INFUSING UPON ARRIVAL AT 8.3 UNITS/HR. DR CARRENO CALLED AND UPDATED THAT PT HAS NO ADMIT ORDERS OR FLUIDS INFUSING. DR CARRENO TO PUT IN ORDERS AT THIS TIME. WILL CONTINUE TO MONITOR.
[2019-12-22 11:54] LABS: Magnesium, Blood 2.3 mg/dL (1.6-2.4)
[2019-12-22 12:04] LABS: Anion Gap 24 mmol/L (6-16); Blood Urea Nitrogen 29 mg/dL (8-24); Bun/Creatinine Ratio 26.1 (12.0-20.0); CO2, Blood 7 mmol/L (21-32); Calcium, Blood 9.3 mg/dL (8.5-10.1); Chloride, Blood 110 mmol/L (98-108); Creatinine, Blood 1.11 mg/dL (0.60-1.20); Glomerular Filtration Rate >60 (60-); Glucose, Blood 391 mg/dL (70-99); Potassium, Blood 4.1 mmol/L (3.5-5.5); Sodium, Blood 141 mmol/L (136-145)
[2019-12-22 15:19] LABS: Magnesium, Blood 1.9 mg/dL (1.6-2.4)
[2019-12-22 15:30] LABS: Albumin, Blood 2.5 g/dL (3.4-5.0); Anion Gap 20 mmol/L (6-16); Blood Urea Nitrogen 24 mg/dL (8-24); Bun/Creatinine Ratio 27.1 (12.0-20.0); CO2, Blood 9 mmol/L (21-32); Calcium, Blood 8.4 mg/dL (8.5-10.1); Chloride, Blood 115 mmol/L (98-108); Creatinine, Blood 0.89 mg/dL (0.60-1.20); Glomerular Filtration Rate >60 (60-); Glucose, Blood 371 mg/dL (70-99); Phosphorus, Blood 2.3 mg/dL (2.5-4.9); Sodium, Blood 144 mmol/L (136-145)
--- NOTE | 2019-12-22 16:44 | NUR ---
DR CARRENO CALLED FOR UPDATE. FULL UPDATE GIVEN INCLUDING CO2 OF 9.
--- NOTE | 2019-12-22 17:44 | NUR ---
SHIFT SUMMARY PT HAS CONTINUED TO BE RESTLESS AND MOAN OUT WITH ANY CARE ACTIVITIES. WHEN PT IS LEFT ALONE IN ROOM, PT RESTS QUIETLY. PT HAS CONTINUED TO ASK FOR FOOD DESPITE MULTPLE TIMES OF EDUCATING PT ABOUT CURRENT CONDITION AND NPO STATUS WHILE ON INSULIN GTT. VITAL SIGNS HAVE REMAINED STABLE. PT ON ROOM AIR. POWERGLIDE'S INSERTED TO SANDY AND ONESIMO, WITH INSULIN INFUSING AT 8 UNITS/HR, NS AT 200 ML/HR, AND K PHOS IVPB. PT USING URINAL TO VOID WELL. PT REPOSITIONS SELF IN BED INDEPENDENTLY. WILL CONTINUE TO MONITOR AND REPORT OFF TO ONCOMING RN.
[2019-12-22 20:05] LABS: Magnesium, Blood 1.8 mg/dL (1.6-2.4)
[2019-12-22 20:06] LABS: Albumin, Blood 2.4 g/dL (3.4-5.0); Anion Gap 7 mmol/L (6-16); Blood Urea Nitrogen 22 mg/dL (8-24); Bun/Creatinine Ratio 25.3 (12.0-20.0); CO2, Blood 18 mmol/L (21-32); Calcium, Blood 8.4 mg/dL (8.5-10.1); Chloride, Blood 119 mmol/L (98-108); Creatinine, Blood 0.87 mg/dL (0.60-1.20); Glomerular Filtration Rate >60 (60-); Glucose, Blood 253 mg/dL (70-99); Phosphorus, Blood 2.1 mg/dL (2.5-4.9); Potassium, Blood 3.6 mmol/L (3.5-5.5); Sodium, Blood 144 mmol/L (136-145)
[2019-12-22 23:39] LABS: Albumin, Blood 2.5 g/dL (3.4-5.0); Anion Gap 8 mmol/L (6-16); Blood Urea Nitrogen 19 mg/dL (8-24); Bun/Creatinine Ratio 24.2 (12.0-20.0); CO2, Blood 18 mmol/L (21-32); Calcium, Blood 8.6 mg/dL (8.5-10.1); Chloride, Blood 121 mmol/L (98-108); Creatinine, Blood 0.79 mg/dL (0.60-1.20); Glomerular Filtration Rate >60 (60-); Glucose, Blood 200 mg/dL (70-99); Magnesium, Blood 1.7 mg/dL (1.6-2.4); Phosphorus, Blood 1.6 mg/dL (2.5-4.9); Potassium, Blood 3.4 mmol/L (3.5-5.5); Sodium, Blood 147 mmol/L (136-145)
--- NOTE | 2019-12-23 00:28 | NUR ---
12/22 @ [address] TAYLOR R/T IMPROVED ANION GAP, PER DR. WILL MAINTAIN INSULIN DRIP AND CURRENT FLUIDS UNTIL AM, REPLACE ELECTROLYTES APPROPRIATE. DID NOT BRING UP LAST SET OF LABS PT. WAS STILL RECEIVING POTASSIUM PHOSPHATE REPLACEMENT. WILL CONTINUE TO MONITOR.
[2019-12-23 04:42] LABS: Hemoglobin 13.8 g/dL (13.5-17.5); Mean Corpuscular HGB 28.6 pg (26.0-34.0); Mean Corpuscular HGB Conc 33.7 g/dL (31.5-36.5); Mean Corpuscular Volume 85 fL (80-100); Mean Platelet Volume 11.4 fL (9.1-12.4); Platelet Count 144 K/mm3 (150-400); RDW Coefficient Variation 13.7 % (11.7-14.2); RDW Standard Deviation 42.8 fL (35.1-46.3); Red Blood Cell Count 4.83 M/mm3 (4.30-5.90); White Blood Cell Count 22.66 K/mm3 (4.00-11.30)
[2019-12-23 05:07] LABS: Alanine Aminotransfer (ALT/SGP 49 U/L (12-78); Albumin, Blood 2.3 g/dL (3.4-5.0); Albumin/Globulin Ratio 0.7 (0.8-1.8); Alk Phos 141 U/L (50-136); Anion Gap 8 mmol/L (6-16); Aspartate Aminotrans (AST/SGOT 12 U/L (12-37); Bilirubin, Direct 0.2 mg/dL (0.0-0.3); Bilirubin, Indirect 0.3 mg/dL (0.1-0.7); Bilirubin, Total 0.5 mg/dL (0.1-1.0); Blood Urea Nitrogen 17 mg/dL (8-24); Bun/Creatinine Ratio 20.9 (12.0-20.0); CO2, Blood 19 mmol/L (21-32); Calcium, Blood 8.3 mg/dL (8.5-10.1); Chloride, Blood 119 mmol/L (98-108); Creatinine, Blood 0.81 mg/dL (0.60-1.20); Globulin, Blood 3.1 g/dL (2.2-4.0); Glomerular Filtration Rate >60 (60-); Glucose, Blood 227 mg/dL (70-99); Magnesium, Blood 2.2 mg/dL (1.6-2.4); Phosphorus, Blood 2.5 mg/dL (2.5-4.9); Potassium, Blood 3.4 mmol/L (3.5-5.5); Sodium, Blood 146 mmol/L (136-145)
[2019-12-23 05:09] LABS: Beta-hydroxybutyrate 5.2 mg/dL (0.2-2.8)
[2019-12-23 05:30] LABS: Total Protein, Blood 5.4 g/dL (6.4-8.2)
--- NOTE | 2019-12-23 06:04 | NUR ---
SHIFT SUMMARY PATIENT HAS SLEPT OFF AND ON THRU NIGHT. EXPERIENCED A COUPLE EPISODES OF INCONTINENCE, WAS NEARLY INCONSOLABLE, WENT BACK TO SLEEP AFTER A FEW MINUTES OF INTENSE EMOTIONAL OUTPOURING. ANION GAP CLOSED EARLY IN SHIFT, BROUGHT IT UP WITH DR. TAYLOR AFTER 2ND SET OF LABS, PER HIM NO NEW ORDERS, MAINTAIN DRIPS THEY ARE, ALLOW DAY TEAM TO MAKE CALL ON FORWARD DIRECTION. DID NOT REPLACE ELECTROLYTES FROM 20:00 LABS PT. STILL HAS POTASSIUM PHOSPHATE REPLACEMENT RUNNING, DID HAVE NEW REPLACEMENT AFTER MIDNIGHT LABS. ASSESSMENT IS CHARTED. VSS. NO C/O PAIN. WILL CONTINUE TO MONITOR.
[2019-12-23 06:36] LABS: Campylobacter Sp Not Detected (NOT DETECT)
[2019-12-23 06:37] LABS: Adenovirus F 40/41 Not Detected (NOT DETECT); Astrovirus Not Detected (NOT DETECT); Cryptosporidium Not Detected (NOT DETECT); Cyclospora Cayetanensis Not Detected (NOT DETECT); E. Coli O157 Not Detected (NOT DETECT); Entamoeba Histolytica Not Detected (NOT DETECT); Enteroaggregative E. coli-EAEC Not Detected (NOT DETECT); Enteropathogenic E. coli-EPEC Not Detected (NOT DETECT); Enterotoxigenic E. coli-ETEC Not Detected (NOT DETECT); Giardia Lamblia Not Detected (NOT DETECT); Norovirus GI/GII Not Detected (NOT DETECT); Plesiomonas Shigelloides Not Detected (NOT DETECT); Rotavirus A Not Detected (NOT DETECT); Salmonella Sp Not Detected (NOT DETECT); Sapovirus Not Detected (NOT DETECT); Shiga Toxin-prod E. coli-STEC Not Detected (NOT DETECT); Shigella/Enteroin E. coli-EIEC Not Detected (NOT DETECT); Vibrio Cholerae Not Detected (NOT DETECT); Vibrio Sp Not Detected (NOT DETECT); Yersinia Enterocolitica Not Detected (NOT DETECT)
--- NOTE | 2019-12-23 06:56 | NUR ---
12/22 @ 18:50 PT. ADAMANT ABOUT DRINKING WATER, HAS DONE WELL WITHOUT THROUGH NIGHT. GOT UP OUT OF BED TO DRINK SOME FROM SINK. MAINTAINED IVs, REPLUGGED MONITORING EQUIPMENT WHEN BACK IN BED. WILL CONTINUE TO MONITOR.
--- NOTE | 2019-12-23 07:15 | NUR ---
ASSUMED CARE OF PT. PT IS SLEEPING ON INSULIN DRIP @ 4 UNITS/HR. PT IS ALERT AND ORIENTED. FOLLOWING COMMANDS. ANSWERING QUESTIONS APPROPRIATELY. AFEBRILE. DENIES HAVING DIARRHEA. NEGATIVE FOR C-DIF.
--- NOTE | 2019-12-23 08:50 | NUR ---
0835-SSEN BY DR. CHO, UPDATED HIM OF PT'S STATUS.
--- NOTE | 2019-12-23 11:13 | NUR ---
1015-DR. CHO WAS NOTIFIED REGARDING PT'S EPISODE OF VOMITING AFTER DRINKING 2 CARTOONS OF MILK. PT WAS MEDICATED WITH ZOFRAN. INSULIN DRIP WAS DISCONTINUED ORDERED. CHANGED IVF TO NS @ 150ML/HR.
--- NOTE | 2019-12-23 14:30 | NUR ---
PT HAS BEEN VERY UNCOOPERATIVE. PT'S MOTHER AT BEDSIDE. PT INSISTING TO HAVE ANOTHER SHOWER. PT YELLING AT HIS MOM STATING HE WANTED TO GO AMA. HE UNHOOKED IV TUBING FROM THE POWER GLIDE. INFORMED PT THAT HE CANNOT PULL HIS IV. PT STATED YES HE CAN. PT IS BLEEDING. INFORMED PT THAT HE KEEPS TO CONTINUE TO PULL HIS IV HE WILL LOOOSE SOME BLOOD AND WILL GET AN INFECTION. MOTHER SAID HE CAN'T GO HOME. REMINDED PATIENT THAT HE JUST HAD A SHOWER AND CANNOT HAVE A SHOWER ANYTIME SOON. HE WAS INFORMED THAT HE CAN GET OUT OF BED AND HE WILL BE PROVIDED WITH WET AND DRY WASH CLOTHS. BUT PT REFUSED TO THE WASH CLOTHS. HE STATED "I'D RATHER STAY DIRTY". PT DECIDED HE WANTED TO GO TO SLEEP INSTEAD. PT IS IMPULSIVE, PT HAS UNCONTROLLED BEHAVIOR.
[2019-12-23 16:49] LABS: Anion Gap 7 mmol/L (6-16); Blood Urea Nitrogen 20 mg/dL (8-24); Bun/Creatinine Ratio 22.6 (12.0-20.0); CO2, Blood 19 mmol/L (21-32); Calcium, Blood 8.1 mg/dL (8.5-10.1); Chloride, Blood 115 mmol/L (98-108); Creatinine, Blood 0.89 mg/dL (0.60-1.20); Glomerular Filtration Rate >60 (60-); Glucose, Blood 301 mg/dL (70-99); Potassium, Blood 3.5 mmol/L (3.5-5.5); Sodium, Blood 141 mmol/L (136-145)
--- NOTE | 2019-12-23 18:00 | NUR ---
1640-PT PULLED HIS IV AGAIN AND RUSHED TO THE SHOWER ROOM AND SHOUTING TO EVERY NURSE NOT TO TOUCH HIM. NURSES TOLD HIM TO GO BACK TO HIS ROOM BUT STILL INSISTED TO GO INTO THE SHOWER. PT UNHOOKED HIMSELF FROM HIS IV. PT IS BLEEDING FROM HIS POWER GLIDE IN THE LEFT ARM. PT WAS INFORMED THAT THE POWERGLIDE NEEDS TO BE COVERED SO NOT TO HAVE AN INFECTION AND NOT TO GET WET. PT STILL INSISTED OF WHAT HE WANTED TO DO. PT IS VERY UNCOONPERATIVE, AND KEPT SAYING DON'T TOUCH. NOTIFIED DR. CHO REGARDING PATIENT'S BEHAVIOR. 1700-DR. CHO AT BEDSIDE TALKING TO PATIENT. NOTIFIED DR. CHO OF PT'S BMP RESULT. PT STATED HE WILL COOPERATIVE. 1800-PT IS SLEEPING AT THIS TIME. PT IS ONLY ABLE TO TOLERATE WATER. WAS NOT ABLE TO TOLERATE FOOD OR MILK.
--- NOTE | 2019-12-23 18:52 | NUR ---
PT STARTED VOMITING AGAIN. HE HAD ANOTHER DRINK OF THE MILK WHICH HE WAS TOLD MANY TIMES NOT TO DRINK MILK. UPON ENTERING THE ROOM NOTED SHEETS OF LINENS ARE ALL OVER THE FLOOR. STOOL EVERYWHERE. INFORMED PT THAT HE CAN GET UP AND USE THE TOILET IF HE WANTS TO DEFECATE AND NOT SCATTER STOOL ALL OVER THE FLOOR AND LINENS COVERED IN STOOL.
--- NOTE | 2019-12-24 04:12 | NUR ---
4490 THIS NURSE WAS CALLED TO ROOM BY EUGENIE GARCIA DUE TO PATIENT TRYING TAKE IV APART; THIS NURSE FOUND THE FOLLOWING: --LEFT POWER GLIDE DRESSING WAS 3/4 TORN APART FROM INSERTION SITE. --IV WAS FOUND LAYING ON FLOOR WITH END INSERTED INTO IV TUBING. -- LEFT ARM POWER GLIDE END HAD BOTH IV NEEDLE INSERTION DEVICES REMOVED AND WERE COVERED WITH ORANGE CAPS FROM FLUSHES. PUMP WAS INFUSING FLUID ONTO FLOOR. --PTS LINEN WERE COVERED IN BLOOD (ENTIRE LINEN WAS CHANGED BY THIS NURSE). --PTS PERSONAL PHONE WAS BLOOD COVERED WITH THIS NURSE CLEANSING DEVICE AND ENTIRE BEDSIDE TABLE. --THIS NURSE ASKED PATIENT HOW ALL THE ABOVE OCCURED WITH PATIENT LYING TO THIS NURSE. PT STATED, "I WANTED TO TAKE IV APART AND GO TO BATHROOM". PT INSTRUCTED THAT UNDER NO CIRCUMSTANCES THAT HE SHOULD NOT BE PLAYING WITH HOSPITAL EQUIPMENT OR IV SITE. PT ADVISED OF RISK FOR INFECTION AND THAT STAFF ARE HERE TO HELP HIM, HOWEVER; HIS BEHAVIOR AND CONDUCT AT THIS MOMENT ARE A DETRIMENT TO HIS HEALTH. --JESSICA VILLANUEVA RN, CHARGE NURSE AT SIDE AND CHANGED LEFT UPPER ARM POWER GLIDE DRESSING VIA STERILE TECHNIQUE. THIS NURSE FLUSHED RIGHT UPPER ARM POWER GLIDE PORTS X 2 AND REAPPLIED TAPE TO SITE. PT ADVISED TO NOT TOUCH EITHER IV SITES OR IV PUMP WITH ACKNOWLEDGEMENT NOTED. --THIS NURSE PULLED PTS CURTAIN SHUT AND PULLED DOOR 1/2 SHUT (PT REQUESTED DOOR TO BE FULLY SHUT WITH THIS NURSE ADVISING PATIENT THAT AFTER RECENT BEHAVIOR, THAT HIS DOOR WILL BE LEFT PARTIALLY OPEN REMINDER HOSPITALIZATION). --REPORT GIVEN TO DEMETRIUS ENGLE RN.
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
[2019-12-24 06:27] LABS: Anion Gap 10 mmol/L (6-16); Blood Urea Nitrogen 20 mg/dL (8-24); Bun/Creatinine Ratio 22.7 (12.0-20.0); CO2, Blood 19 mmol/L (21-32); Calcium, Blood 7.6 mg/dL (8.5-10.1); Chloride, Blood 112 mmol/L (98-108); Creatinine, Blood 0.88 mg/dL (0.60-1.20); Glomerular Filtration Rate >60 (60-); Glucose, Blood 297 mg/dL (70-99); Potassium, Blood 3.3 mmol/L (3.5-5.5); Sodium, Blood 141 mmol/L (136-145)
--- NOTE | 2019-12-24 07:15 | NUR ---
SHIFT SUMMARY. PATIENT ARRIVED TO THE MEDICAL UNIT VIA WHEELCHAIR. PT IS STEADY ON HIS FEET. PATIENT HAS DISMANTLED HIS IV ON TWO SEPARATE OCCASIONS OVERNIGHT, HAS NOT TOUCHED HIS POWERGLIDE SINCE THE SECOND INSTANCE. POWERGLIDES PATENT AND FLUSHED. PT MEDICATED PER EMAR FOR NAUSEA AND PAIN. BED IN LOWEST POSITION WITH WHEELS LOCKED. CALL LIGHT WITHIN REACH. REPORT GIVEN TO ONCOMING RN.
--- NOTE | 2019-12-24 07:40 | NUR ---
PT CALLED RN INTO ROOM. HE WAS IN THE SHOWER, REQUESTING PAIN AND NAUSEA MEDICATIONS. IVF HAD BEEN INFUSING INTO SANDY POWERGLIDE IV. PT HAD DISCONNECTED IV AT THE HUB TO GO INTO BR, LEFT IV TUBING LYING ON BED. WHEN THIS AUTHOR RETURNED WITH MEDICATIONS, PT WAS IN BED MOANING, C/O 7/10 BACK PAIN. APOLOGIZED REPEATEDLY FOR "TAKING MY IV APART." PT HAD BEEN EDUCATED NOT TO DO THIS BY ELEUTERIO RN PER HER REPORT, AND IV PUMP WAS LOCKED OUT SO PT COULD NOT TAMPER WITH IT. RE-EDUCATED PT THAT HE WAS NOT TO TOUCH HIS IV IN ANY WAY, HE WAS NOT TO TAMPER WITH IV PUMP IN ANY WAY, AND WAS TO CALL RN IF HE NEEDED TO GO TO BR, AND WAS NOT TO GET IN SHOWER; HE VERBALIZED UNDERSTANDING. REPORTED THIS TO Antonia BISWAS RN, REQUESTED THAT SHE REMOVE SANDY POWERGLIDE D/T RISK OF CONTAMINATION.
--- NOTE | 2019-12-24 10:54 | NUR ---
RECEIVED NOTIFICATION FROM Nash SAEZ CNA THAT PT WAS OBSERVED LEAVING THE UNIT IN [facility] AT ~1030. STILL HAS POWERGLIDE IV IN ONESIMO. INFORMED DR. CHO AND Jazmín BISWAS RN.
--- NOTE | 2019-12-24 11:14 | NUR ---
CALLED BY SECURITY THAT PT IS DOWNSTAIRS NEAR ED ENTRANCE, HAS IV IN ARM. THEY REQUESTED THIS RN COME DOWN TO REMOVE. ONESIMO POWERGLIDE REMOVED WITHOUT INCIDENT, SITE WNL. PT IN NAD.
== END 2019-12-24 10:52 | disposition left against medical advice (07) | DRG 639 ==
LOC: ER 07:31 → ICUW 08:37 → MEDS 12-23 19:30
PROVIDERS: Emergency Medicine; Hospitalist; ADMIT Internal Medicine
DX: E10.10 Type 1 diabetes mellitus with ketoacidosis without coma (principal); F17.210 Nicotine dependence, cigarettes, uncomplicated; F43.10 Post-traumatic stress disorder, unspecified; Z91.19 Patient's noncompliance with other medical treatment and regimen; E86.0 Dehydration; D72.829 Elevated white blood cell count, unspecified; F11.11 Opioid abuse, in remission
CPT/HCPCS: 0097U; 80048; 80069; 80076; 82010; 82947; 83735; 84100; 85027; 96374; 99284-25; A9270-GY; C1751; C9113; J0744; J1630; J1650; J1815; J2405; J2765; J3010; J3475; J7030; J7060

== ENCOUNTER 2020-03-22 11:50 | Emergency (ER) | payer OTHER ==
[~2020-03-22] VITALS: Ht 182.9 cm; Wt 74.8 kg
[2020-03-22 12:17] LABS: Source, Urine Voided
[2020-03-22 12:22] LABS: Appearance, Urine Clear (Clear); Bilirubin, Urine Neg (Neg); Blood, Urine Neg (Neg); Color, Urine Yellow (P-Yellow); Glucose Qualitative, Urine 4+ (Neg); Ketones, Urine Neg (Neg); Leukocyte Esterase, Urine Neg (Neg); Nitrite, Urine Neg (Neg); Protein, Urine Neg (Neg); Urobilinogen, Urine NORM (Normal)
[2020-03-22 12:26] LABS: BASOPHILS ABSOLUTE AUTO 0.05 K/mm3 (0.00-0.23); BASOPHILS PERCENT AUTO 1 % (0-2); EOSINOPHILS ABSOLUTE AUTO 0.09 K/mm3 (0.00-0.68); EOSINOPHILS PERCENT AUTO 1 % (0-6); Hematocrit 46.1 % (37.0-53.0); Hemoglobin 15.5 g/dL (13.5-17.5); IMMATURE GRAN ABSOLUTE AUTO 0.01 K/mm3 (0.00-0.10); IMMATURE GRAN PERCENT AUTO 0 % (0-1); LYMPHOCYTES ABSOLUTE AUTO 1.68 K/mm3 (0.84-5.20); LYMPHOCYTES PERCENT AUTO 20 % (21-46); MONOCYTES PERCENT AUTO 7 % (4-13); Mean Corpuscular HGB 27.3 pg (26.0-34.0); Mean Corpuscular HGB Conc 33.6 g/dL (31.5-36.5); Mean Corpuscular Volume 81 fL (80-100); Mean Platelet Volume 9.8 fL (9.1-12.4); NEUTROPHILS ABSOLUTE AUTO 5.99 K/mm3 (1.96-9.15); NEUTROPHILS PERCENT AUTO 71 % (41-73); Platelet Count 245 K/mm3 (150-400); RDW Coefficient Variation 14.4 % (11.7-14.2); RDW Standard Deviation 42.2 fL (35.1-46.3); Red Blood Cell Count 5.67 M/mm3 (4.30-5.90); White Blood Cell Count 8.42 K/mm3 (4.00-11.30)
[2020-03-22 12:51] LABS: Alanine Aminotransfer (ALT/SGP 31 U/L (12-78); Albumin, Blood 3.8 g/dL (3.4-5.0); Albumin/Globulin Ratio 0.9 (0.8-1.8); Alk Phos 165 U/L (50-136); Anion Gap 5 mmol/L (6-16); Aspartate Aminotrans (AST/SGOT 15 U/L (12-37); Bilirubin, Total 0.5 mg/dL (0.1-1.0); Blood Urea Nitrogen 9 mg/dL (8-24); Bun/Creatinine Ratio 13.8 (12.0-20.0); CO2, Blood 27 mmol/L (21-32); Calcium, Blood 9.5 mg/dL (8.5-10.1); Chloride, Blood 104 mmol/L (98-108); Creatinine, Blood 0.65 mg/dL (0.60-1.20); Globulin, Blood 4.1 g/dL (2.2-4.0); Glomerular Filtration Rate >60 (60-); Glucose, Blood 370 mg/dL (70-99); Potassium, Blood 4.1 mmol/L (3.5-5.5); Sodium, Blood 136 mmol/L (136-145); Total Protein, Blood 7.9 g/dL (6.4-8.2)
[2020-03-22] MEDS ORDERED: IBUP600 PO (13:57)
[2020-03-22] MEDS ORDERED: Cipro500 MG PO (13:57)
[2020-03-22] MEDS ORDERED: Magnesium Citr296 ML PO (13:57)
[2020-03-22] MEDS ORDERED: Flagyl500 MG PO (13:57)
== END 2020-03-22 14:00 | disposition home or self-care (01) ==
LOC: ER 11:50
PROVIDERS: Emergency Medicine
DX: K52.9 Noninfective gastroenteritis and colitis, unspecified (principal); K59.00 Constipation, unspecified; E10.65 Type 1 diabetes mellitus with hyperglycemia; F17.210 Nicotine dependence, cigarettes, uncomplicated; Z88.1 Allergy status to other antibiotic agents; Z88.5 Allergy status to narcotic agent; Z79.899 Other long term (current) drug therapy
CPT/HCPCS: 36415; 74176; 80053; 81003; 82947; 83690; 85025; 96361; 96374; 96375; 99284-25; J1885; J7030

== ENCOUNTER 2020-04-05 14:31 | Observation (INO) | payer OTHER ==
[~2020-04-05] VITALS: Ht 185.4 cm; Wt 68.0 kg
[~2020-04-05 14:31] MED LIST changes: +Cipro500 MG PO; +Flagyl500 MG PO; +IBUP600 PO; +Magnesium Citr296 ML PO; +NOVOLOG FL100 UNIT/3 SC
[2020-04-05 15:05] LABS: Calcium, Ionized (POC) 1.17 mmol/L (1.10-1.46); Chloride (POC) 88 mmol/L (98-108); Creatinine (POC) 0.7 mg/dL (0.8-1.3); Glucose (ISTAT POC) >700 mg/dL (70-99); Hemoglobin (POC) 15.6 g/dL (13.5-17.5); Potassium (POC) 4.7 mmol/L (3.5-5.5); Sodium (POC) 127 mmol/L (135-148); Total CO2 (POC) 27 mmol/L (21-32)
[2020-04-05 15:20] LABS: Source, Urine Clean Catch
[2020-04-05 15:22] LABS: Base Excess Venous 4.4 mmol/L; Bicarbonate Venous 27.9 mmol/L (24.0-30.0); PCO2 Venous 41.5 mmHg (38-42); PO2 Venous 190 mmHg (38-42); pH Blood Venous 7.44 (7.34-7.37)
[2020-04-05 15:25] LABS: BASOPHILS ABSOLUTE AUTO 0.05 K/mm3 (0.00-0.23); BASOPHILS PERCENT AUTO 1 % (0-2); EOSINOPHILS ABSOLUTE AUTO 0.05 K/mm3 (0.00-0.68); EOSINOPHILS PERCENT AUTO 1 % (0-6); Hemoglobin 15.3 g/dL (13.5-17.5); IMMATURE GRAN ABSOLUTE AUTO 0.01 K/mm3 (0.00-0.10); IMMATURE GRAN PERCENT AUTO 0 % (0-1); LYMPHOCYTES ABSOLUTE AUTO 2.07 K/mm3 (0.84-5.20); LYMPHOCYTES PERCENT AUTO 30 % (21-46); MONOCYTES ABSOLUTE AUTO 0.55 K/mm3 (0.16-1.47); MONOCYTES PERCENT AUTO 8 % (4-13); Mean Corpuscular HGB 27.3 pg (26.0-34.0); Mean Corpuscular HGB Conc 34.8 g/dL (31.5-36.5); Mean Corpuscular Volume 78 fL (80-100); Mean Platelet Volume 10.7 fL (9.1-12.4); NEUTROPHILS ABSOLUTE AUTO 4.23 K/mm3 (1.96-9.15); NEUTROPHILS PERCENT AUTO 61 % (41-73); Platelet Count 262 K/mm3 (150-400); RDW Coefficient Variation 13.4 % (11.7-14.2); RDW Standard Deviation 38.5 fL (35.1-46.3); Red Blood Cell Count 5.61 M/mm3 (4.30-5.90); White Blood Cell Count 6.96 K/mm3 (4.00-11.30)
[2020-04-05 15:47] LABS: Beta-hydroxybutyrate 6.2 mg/dL (0.2-2.8)
[2020-04-05 15:52] LABS: Appearance, Urine Clear (Clear); Bilirubin, Urine Neg (Neg); Blood, Urine Neg (Neg); Color, Urine Yellow (P-Yellow); Glucose Qualitative, Urine 4+ (Neg); Ketones, Urine 1+ (Neg); Leukocyte Esterase, Urine Neg (Neg); Nitrite, Urine Neg (Neg); Protein, Urine Neg (Neg); Specific Gravity, Urine 1.005 (1.003-1.022); Urobilinogen, Urine NORM (Normal); pH, Urine 6.5 (5.0-8.0)
[2020-04-05 16:01] LABS: Alanine Aminotransfer (ALT/SGP 32 U/L (12-78); Albumin, Blood 3.7 g/dL (3.4-5.0); Albumin/Globulin Ratio 0.9 (0.8-1.8); Alk Phos 213 U/L (50-136); Anion Gap 8 mmol/L (6-16); Aspartate Aminotrans (AST/SGOT 11 U/L (12-37); Bilirubin, Total 0.5 mg/dL (0.1-1.0); Blood Urea Nitrogen 22 mg/dL (8-24); Bun/Creatinine Ratio 36.4 (12.0-20.0); CO2, Blood 27 mmol/L (21-32); Calcium, Blood 9.3 mg/dL (8.5-10.1); Chloride, Blood 91 mmol/L (98-108); Creatinine, Blood 0.61 mg/dL (0.60-1.20); Globulin, Blood 4.1 g/dL (2.2-4.0); Glomerular Filtration Rate >60 (60-); Potassium, Blood 4.7 mmol/L (3.5-5.5); Sodium, Blood 126 mmol/L (136-145); Total Protein, Blood 7.8 g/dL (6.4-8.2)
[2020-04-05 16:03] LABS: Glucose, Blood 807 mg/dL (70-99)
--- NOTE | 2020-04-06 04:43 | NUR ---
0400 PT WOKE UP AGITATED AND WANTED TO GO SMOKE. PT INFORMED NOT TO DUE TO BEING ON TELE. PT REFUSED TO STAY IN ROOM. PT RETURNED ALTERED AND LETHARGIC. PT TOOK SURGICAL SERVICES ASST BUT NOT HIS CIGERETTES.
--- NOTE | 2020-04-06 04:54 | NUR ---
SUMMARY PT ARRIVED TO FLOOR LETHARGIC AND DROWSEY. PT HAD BEEN SLEEPING SINCE ARRIVAL TO FLOOR. PT ABLE TO ANSWER QUESTIONS DURING ADMIT. PT WOKE UP THIS AM AND WENT TO SMOKE. PT RETURNED SHORTLY ALERTED AND AGAIN LETHARGIC. PT CURRENTLY SLEEPING. PT HAS BEEN NPO SINCE ARRIVAL TO FLOOR.
--- NOTE | 2020-04-06 11:20 | NUR ---
DISCHARGED AT 1035 WITH ALL PERSONAL BELONINGINGS. NODDED IN AGREEMENT TO DISCHARGE INSTRUCTIONS, BUT DID NOT MAKE EYE CONTACT OR ASK ANY QUESTIONS. I ASKED PT TO VERBALIZE UNDERSTANDING OF INSTRUCTIONS AND FOLLOW-UP AND HE THREW HIS ARMS DOWN AND YELLED, "YES, I GET IT!". ALFONSO ORDERED, OKAY PER CHRIS POLLOCK. BOTH GRANDMOTHERS CALLED, UGO AND PAMELA, AND NEITHER AVAILABLE TO OPERATIONAL RISK MANAGER PATIENT. CONFIRMED WITH TREE TAPPING LABORER THAT PATIENT IS ABLE TO GET THE SUPPLIES HE NEEDS TO TREAT DIABETES; THEY STATED THEY ARE PROVIDED FREE OF CHARGE.
--- NOTE | 2020-04-06 11:26 | NUR ---
ASSESSMENT AT 0900 CONFIRMS NO ACUTE CHANGES. PT LABILE. EXITED UNIT TWICE THIS MORNING PRIOR TO DISCHARGE TO SMOKE. COACHED ON SMOKING CESSATION. ATE 100% OF BREAKFAST, 240ML OF MILK AND 480ML OF WATER. EDUCATED ON IMPORTANCE OF BLOOD GLUCOSE MANAGEMENT. PATIENT REFUSES EDUCATION, DOES NOT RESPOND, OR ACKNOWLEDGE NURSE.
== END 2020-04-06 10:34 | disposition home or self-care (01) ==
LOC: ER 14:31 → MEDS 14:32 → ERHOLD 14:32 → ER 18:05 → ERHOLD 18:05 → MEDS 18:05 → ERHOLD 21:54 → MEDS 04-06 10:34
PROVIDERS: Emergency Medicine; ADMIT Internal Medicine
DX: E10.69 Type 1 diabetes mellitus with other specified complication (principal); G92 Toxic encephalopathy; F11.11 Opioid abuse, in remission; F17.210 Nicotine dependence, cigarettes, uncomplicated; F43.10 Post-traumatic stress disorder, unspecified; Z79.4 Long term (current) use of insulin; Z79.2 Long term (current) use of antibiotics; Z79.899 Other long term (current) drug therapy; Z91.14 Patient's other noncompliance with medication regimen; Z88.1 Allergy status to other antibiotic agents; Z88.5 Allergy status to narcotic agent; Z23 Encounter for immunization
CPT/HCPCS: 36415; 71045; 80047; 80053; 81003; 82010; 82803; 82947; 83930; 85014; 85025; 93005; 93010; 94762; 96361; 96374; 99285-25; A9270-GY; G0378; J1815; J2060; J2310; J7030

== ENCOUNTER 2020-04-26 10:17 | Inpatient (IN) | payer OTHER ==
[~2020-04-26] VITALS: Ht 185.4 cm; Wt 61.0 kg
[2020-04-26 11:27] LABS: pH Blood Venous 7.18 (7.34-7.37)
[2020-04-26 11:28] LABS: Base Excess Venous -16.9 mmol/L; PCO2 Venous 30.6 mmHg (38-42); PO2 Venous 45.6 mmHg (38-42)
[2020-04-26 11:28] LABS: BASOPHILS ABSOLUTE AUTO 0.08 K/mm3 (0.00-0.23); BASOPHILS PERCENT AUTO 1 % (0-2); EOSINOPHILS ABSOLUTE AUTO 0.03 K/mm3 (0.00-0.68); EOSINOPHILS PERCENT AUTO 0 % (0-6); Hematocrit 52.1 % (37.0-53.0); Hemoglobin 17.2 g/dL (13.5-17.5); IMMATURE GRAN ABSOLUTE AUTO 0.08 K/mm3 (0.00-0.10); IMMATURE GRAN PERCENT AUTO 1 % (0-1); LYMPHOCYTES ABSOLUTE AUTO 1.59 K/mm3 (0.84-5.20); LYMPHOCYTES PERCENT AUTO 12 % (21-46); MONOCYTES ABSOLUTE AUTO 0.69 K/mm3 (0.16-1.47); MONOCYTES PERCENT AUTO 5 % (4-13); Mean Corpuscular HGB 27.5 pg (26.0-34.0); Mean Corpuscular Volume 83 fL (80-100); Mean Platelet Volume 10.8 fL (9.1-12.4); NEUTROPHILS PERCENT AUTO 81 % (41-73); Platelet Count 327 K/mm3 (150-400); RDW Coefficient Variation 15.7 % (11.7-14.2); RDW Standard Deviation 46.5 fL (35.1-46.3); Red Blood Cell Count 6.25 M/mm3 (4.30-5.90); White Blood Cell Count 13.27 K/mm3 (4.00-11.30)
[2020-04-26 11:49] LABS: Alanine Aminotransfer (ALT/SGP 23 U/L (12-78); Albumin, Blood 3.9 g/dL (3.4-5.0); Albumin/Globulin Ratio 0.9 (0.8-1.8); Alk Phos 150 U/L (50-136); Anion Gap 23 mmol/L (6-16); Aspartate Aminotrans (AST/SGOT 8 U/L (12-37); Bilirubin, Total 0.5 mg/dL (0.1-1.0); Blood Urea Nitrogen 20 mg/dL (8-24); Bun/Creatinine Ratio 27.9 (12.0-20.0); CO2, Blood 14 mmol/L (21-32); Calcium, Blood 9.2 mg/dL (8.5-10.1); Chloride, Blood 97 mmol/L (98-108); Creatinine, Blood 0.72 mg/dL (0.60-1.20); Globulin, Blood 4.3 g/dL (2.2-4.0); Glomerular Filtration Rate >60 (60-); Glucose, Blood 541 mg/dL (70-99); Potassium, Blood 5.2 mmol/L (3.5-5.5); Sodium, Blood 134 mmol/L (136-145); Total Protein, Blood 8.2 g/dL (6.4-8.2)
[2020-04-26 12:37] LABS: Source, Urine Clean Catch
[2020-04-26 12:44] LABS: Bilirubin, Urine Neg (Neg); Blood, Urine Neg (Neg); Glucose Qualitative, Urine 4+ (Neg); Ketones, Urine 4+ (Neg); Leukocyte Esterase, Urine Neg (Neg); Nitrite, Urine Pos (Neg); Protein, Urine 2+ (Neg); Specific Gravity, Urine 1.025 (1.003-1.022); Urobilinogen, Urine NORM (Normal)
[2020-04-26 12:54] LABS: Appearance, Urine Clear (Clear); Color, Urine Yellow (P-Yellow)
[2020-04-26 12:55] LABS: Bacteria Few /hpf; Red Blood Cells, Urine 0-2 /hpf (0-2); Squamous Epithelial Cells Rare /hpf (Few); White Blood Cells, Urine 0-2 /hpf (0-5)
[2020-04-26 13:04] LABS: Magnesium, Blood 2.3 mg/dL (1.6-2.4)
[2020-04-26] MEDS ORDERED: BASAGLAR K100 UNIT/1 SC (13:10)
--- NOTE | 2020-04-26 15:48 | NUR ---
INITIAL ASSESSMENT PATIENT ARRIVED TO UNIT AT 1425. PATIENT ALERT AND ORIENTED X 4. PATIENT WEAK BUT ABLE TO TRANSFER SELF TO ICU BED FROM ER [facility]. PATIENT HAS BEEN IRRITABLE, ANGRY, UNCOOPERATIVE. PATIENT HAS BEEN REFUSING LAB TO DRAW BLOOD. PATIENT INFORMED THAT WE ARE UNABLE TO GET AN ACCURATE BLOOD SUGAR LEVEL ON THE GLUCOMETER BECAUSE THE LEVEL IS OVER 500. PATIENT STATES THAT HE WILL CONTINUE TO RECEIVE FLUIDS UNTIL BLOOD SUGARS ARE UNDER 500 AND ABLE TO BE READ ON GLUCOMETER. PATIENT INFORMED BY PRIMARY NURSE, CHARGE NURSE, AND DR. MAHONEY THAT BLOOD SUGAR IS NOT THE ONLY LAB THAT IS ASSESSED WITH THIS CONDITION. NURSE SPOKE WITH DR. MAHONEY AND AIR DEFENCE OFFICER STELLA KIRKLAND SEVERAL TIMES DISCUSSING WHAT TO DO PATIENT CONTINUES TO REFUSE BLOOD DRAWS, WELL SOME OTHER NURSING CARE. PATIENT AGREED TO POWERGLIDE IV, THAT WE CAN HOPEFULLY KEEP DRAWING BLOOD FROM. WAITING FOR NURSE TO PLACE POWERGLIDE. INSULIN DRIP RESTARTED AT REQUEST OF DR. MAHONEY. WILL CONTINUE TO CHECK BLOOD SUGARS TO MAKE SURE THEY DO NOT FALL TOO LOW. PATIENT SATTING 90% AND GREATER ON RA. LUNGS CLEAR THROUGHOUT. PATIENT IN SB TO SR, HR 40S TO 60S. SBP 1-TEENS TO 130S. HYPERACTIVE BS NOTED. PATIENT NAUSEOUS WHEN FIRST ARRIVED TO SHIFT BUT NOW DENIES. REPORTS LAST BM WAS 4 DAYS AGO. WNL. ABCESSES NOTED TO MID L UA, L SUPERIOR FA AND R MID FA FROM IV DRUG USE; ALL DRAINED IN ER. INSULIN NOW INFUSING AT 7 UNITS PER HOUR AND 3RD LITER OF NS BOLUS INFUSING. BED LOW, CALL LIGHT IN REACH. PATIENT ORIENTED TO UNIT, ROOM AND CALL LIGHT. PATIENT INFORMED NOT TO GET OUT OF BED WITHOUT NURSE. WILL CONTINUE TO MONITOR PATIENT FREQUENTLY THROUGHOUT SHIFT.
[2020-04-26 16:24] LABS: U Amphetamine Screen Not Detected; U Barbituate Screen Not Detected; U Benzodiazapine Screen Not Detected; U Buprenorphine Screen Not Detected; U Cannabinoids Screen Not Detected; U Cocaine Screen Not Detected; U Methadone Screen Not Detected; U Methamphetamine Screen Not Detected; U Opiates Screen DETECTED; U Oxycodone Screen Not Detected; U Phencyclidine Screen Not Detected; U Propoxyphene Screen Not Detected
--- NOTE | 2020-04-26 18:27 | NUR ---
UPDATED DR. MAHONEY ON PATIENT STATUS. INFORMED THAT POWERGLIDE PLACED AND INFUSING GREAT BUT THAT IT IS NOT DRAWING ANY BLOOD BACK. INFORMED THAT PATIENT IS ALLOWING BLOOD GLUCOSE FINGER STICKS BUT CONTINUES TO REFUSE LAB DRAWS DESPITE BEING EDUCATED SEVERAL TIMES TO WHY IT IS IMPORTANT TO OBTAIN ELECTROLYTE LEVELS, CO2, ANION, ETC. DOCTOR INFORMED THAT BLOOD SUGAR IS NOW 263 AND INSULIN DRIP IS AT 4 UNITS/ HOUR. INFORMED THAT NS INFUSING AT 200 MLS/ HOUR. ORDERS OBTAINED.
--- NOTE | 2020-04-26 18:49 | NUR ---
SHIFT SUMMARY PATIENT REMAINS ALERT AND ORIENTED X 4, AFEBRILE. PATIENT LETHARGIC. PATIENT LABILE. COOPERATIVE AND CALM AT TIMES, ANGRY AND IRRITABLE AT OTHERS. PATIENT CONTINUES TO REFUSE LAB DRAWS. PATIENT IS ALLOWING NURSES TO TAKE BLOOD SUGARS VIA FINGER STICKS. PATIENT REMAINS SATTING 90% AND GREATER ON RA. PATIENT REMAINS IN SB TO SR, HR 40S TO 70S. SBP 1-TEENS TO 130S. NO COMPLAINTS OF NAUSEA. PATIENT REMAINS NPO. NO BM THIS SHIFT. WNL. DRESSINGS REMAIN ON ABCESSES. LAST BS 263. INSULIN INFUSING AT 3 UNITS/ HOUR. NS INFUSING AT 200 MLS/ HOUR; PATIENT HAD 3 L NS BOLUS BEFORE INFUSION. PATIENT RECEIVING MYCELEX AND BACTRIM PO. NURSE NOTIFY ORDERS IN CHART FOR WHEN BLOOD SUGARS DECREASE UNDER 250. PATIENT APPEARS CONTENT AT THIS TIME. BED LOW, CALL LIGHT IN REACH. WILL BE GIVING REPORT TO ONCOMING AUTO RENTAL CLERK NURSE SHORTLY.
--- NOTE | 2020-04-26 19:57 | NUR ---
INITAL SHIFT ASSESSMENT PT RESTING IN BED. HE IS VERY DEMANDING FOR FOOD AND SOMETHING TO DRINK AT THIS TIME. BS WAS CHECKED AND WAS [address] GUARDADO ORDERS WILL BE IMPLEMENTED. D5W 1/2NS STARTED AT 150 ML/HR. NS D/C'D. INSULIN GTT REMAINS AT 4 UNITS/HR. BOTH RUNNING INTO PERIPHERAL IV IN LEFT WRIST. CDI WITH NO S/S OF INFECTIONS. OFFERED TO SECURE THE IV TUBBING WITH COBAN AND PT STATES TO LEAVE HIM ALONE. HE WAS WILLING TO TAKE HIS ANTIBIOTICS AT THIS TIME PO. PT WAS ENCOURAGED TO GO SLOW WITH THE ORAL INTAKE TO AVOID N/V. PT OVERALL HAS A VERY BENIGN ASSESSMENT. HIS SKIN IS FLUSHED ALL OVER. PT PULLED OFF HIS BP CUFF WELL HIS FINGER OXYGENATION PROBE. VITALS APPEAR TO BE STABLE. POWERGLIDE TO RIGHT UPPER ARM CDI. PT ON RA WITH NO S/S OF RESP DISTRESS. WILL CON'T TO MONITOR AND KEEP PT SAFE T/O REMAINDER OF SHIFT.
--- NOTE | 2020-04-27 00:38 | NUR ---
SHIFT UPDATE PT CON'T TO BE STABLE. HE HAS HAD N/V FOR MOST OF THE NIGHT. HE WAS ONLY ABLE TO EAT A FEW BITES OFF OF HIS PUDDING EARLIER IN SHIFT. INSULIN GTT AT 2 UNITS CURRENTLY. HE CON'T TO STATE HE WANTS TO GO HOME AND HE HATES THIS PLACE. STATES HE FEELS HORRIBLE. WILL CON'T TO MONITOR AND KEEP PT SAFE. CALL LIGHT IN REACH BED IN LOW POSISTION. NEW EMESIS BAG GIVEN.
--- NOTE | 2020-04-27 05:19 | NUR ---
SHIFT SUMMARY PT CON'T TO BE ON INSULIN GTT AT 2UNITS/HR. PT ALSO CON'T TO BE ON THE D5W 1/2NS AT 150ML/HR. HE HAS NOT HAD MUCH N/V THIS AM. STATES HIS CHEST STILL HURTS FROM THE ACID. PT CON'T TO NOT ALLOW THIS RN TO PERFORM BP ON HIM OR LAB DRAWS. HE DID WANT TO GO HOME AROUND 0300, BUT STATES HE DOESN'T HAVE A RIDE SO HE WILL STAY FOR NOW. HE CON'T TO NOT HAVE EATEN BUT TWO OR THREE BITES OFF HIS PUDDING. PT WAS ABLE TO USE URINAL WITH NO ISSUES DARK YELLOW URINE. WILL CON'T TO MONITOR AND KEEP PT SAFE TILL REPORT TO ONCOMING RN.
--- NOTE | 2020-04-27 07:23 | NUR ---
ASSUMED CARE: PT RESTING QUIETLY, INSULIN AT 2 UNITS PER HOUR AT TIS TIME. SINUS KRIS IN 50S AT THIS TIME. NO ACUTE NEEDS OR CONCERNS AT PRESENT.
--- NOTE | 2020-04-27 08:19 | NUR ---
PT ALLOWED NURSE TO ASSESS AND CHECK CBG BUT REFUSED VITALS TO BE TAKEN. LAB AT BEDSIDE AT THIS TIME. PT REFUSING THEM WELL
--- NOTE | 2020-04-27 08:34 | NUR ---
PT STATED HE WANTS TO GO HOME. DISCUSSED WITH PT THAT HE IS STILL ON 2UNITS IV INSULIN AND THAT LABS ARE NEEDED TO SEE HOW HE IS PROGRESSING. INFORMED HIM THAT IF INSULIN IS DISCONTINUED TOO SOON AND HE GOES HOME, THE LIKLIHOOD OF HIM COMING BACK TO THE HOSPITAL IS HIGH. PT DISAGREES. REVIEWED AMA POLICY WITH HIM. CALL TO DR OLIVAS WHO STATES SHE WILL BE HERE TO SEE PT IN A FEW MINUTES.
--- NOTE | 2020-04-27 09:00 | NUR ---
DR OLIVAS IN TO ASSESS PT. PT REFUSES TO HAVE BLOOD DRAWN TO CHECK ELECTROLYTES. PT STATES, "I JUST WANT TO GO HOME. I'M WITHDRAWING FROM HEROINE AND YOU GUYS ARE GIVING ME ANYTHING FOR IT." DR RICHARDSON DISCUSSED METHADONE, WHICH PT REPORTS HE HAS USED BEFORE. PT REPORTS IF HE RECIEVES METHADONE, HE WOULD BE AGREEABLE TO HAVE LABS DRAWN AND STAY A INPT FOR NOW, OPPOSED TO LEAVING AMA. WILL CONTINUE INSULIN GTT AT THIS TIME UNTIL LABWORK CAN BE REASSESSED. SEE NEW ORDERS.
--- NOTE | 2020-04-27 10:00 | NUR ---
DR OLIVAS CAME TO SEE PT AND PT TOLD HER HE WANTS TO LEAVE [place] BECAUSE HE IS WITHDRAWING FROM HEROIN. DR OLIVAS SAID SHE WOULD GIVE METHADONE IF HE ALLOWED LABS TO BE DRAWN. PT THEN BEGAN HOLLERING IN [place] FOR METHADONE. THIS RN WENT INTO ROOM AND REITERATED ON AGREEMENT THAT HE WOULD ALLOW LABS WHICH HE AGREED. SOON METHADONE WAS GIVEN PT STATED HE WAS LEAVING AND TOLD GLASS MOULD CLEANER THAT HE WOULD NOT ALLOW LAB DRAW. REVERBERATORY FURNACE OPERATOR WENT INTO ROOM AND REITERATED NEED FOR LABS AND HOW IT DOES NOT HELP FUTURE DOCTOR'S TRUST IF HE ASKS FOR METHADONE FOR TREATMENT IN THE FUTURE. PT STILL REFUSED. CURRENTLY MAKING PHONE CALLS FOR RIDE HOME
[2020-04-27 11:29] LABS: Alanine Aminotransfer (ALT/SGP 17 U/L (12-78); Albumin, Blood 3.1 g/dL (3.4-5.0); Albumin/Globulin Ratio 0.9 (0.8-1.8); Alk Phos 108 U/L (50-136); Anion Gap 9 mmol/L (6-16); Aspartate Aminotrans (AST/SGOT 10 U/L (12-37); Bilirubin, Total 0.6 mg/dL (0.1-1.0); Blood Urea Nitrogen 11 mg/dL (8-24); Bun/Creatinine Ratio 22.9 (12.0-20.0); CO2, Blood 27 mmol/L (21-32); Calcium, Blood 8.4 mg/dL (8.5-10.1); Chloride, Blood 101 mmol/L (98-108); Creatinine, Blood 0.48 mg/dL (0.60-1.20); Globulin, Blood 3.3 g/dL (2.2-4.0); Glomerular Filtration Rate >60 (60-); Glucose, Blood 227 mg/dL (70-99); Phosphorus, Blood 1.5 mg/dL (2.5-4.9); Potassium, Blood 2.7 mmol/L (3.5-5.5); Sodium, Blood 137 mmol/L (136-145); Total Protein, Blood 6.4 g/dL (6.4-8.2)
[2020-04-27 11:43] LABS: BASOPHILS ABSOLUTE AUTO 0.04 K/mm3 (0.00-0.23); BASOPHILS PERCENT AUTO 0 % (0-2); EOSINOPHILS ABSOLUTE AUTO 0.02 K/mm3 (0.00-0.68); EOSINOPHILS PERCENT AUTO 0 % (0-6); Hematocrit 44.2 % (37.0-53.0); Hemoglobin 15.9 g/dL (13.5-17.5); IMMATURE GRAN ABSOLUTE AUTO 0.08 K/mm3 (0.00-0.10); IMMATURE GRAN PERCENT AUTO 1 % (0-1); LYMPHOCYTES ABSOLUTE AUTO 1.73 K/mm3 (0.84-5.20); LYMPHOCYTES PERCENT AUTO 11 % (21-46); MONOCYTES PERCENT AUTO 5 % (4-13); Mean Corpuscular HGB 27.8 pg (26.0-34.0); Mean Platelet Volume 10.4 fL (9.1-12.4); NEUTROPHILS ABSOLUTE AUTO 13.22 K/mm3 (1.96-9.15); NEUTROPHILS PERCENT AUTO 83 % (41-73); Platelet Count 285 K/mm3 (150-400); RDW Coefficient Variation 15.1 % (11.7-14.2); Red Blood Cell Count 5.72 M/mm3 (4.30-5.90); White Blood Cell Count 15.89 K/mm3 (4.00-11.30)
[2020-04-27 11:48] LABS: Mean Corpuscular Volume 77 fL (80-100)
--- NOTE | 2020-04-27 12:55 | NUR ---
PT GOT UP TO USE URINAL AND DISCONNECTED HIMSELF FROM HEART MONITOR. REFUSED TO LET NURSE REATTACH LEADS. INSULIN GTT REMAINS AT 2 UNITS AND D5 SWITCHED TO KPHOS WHICH IS RUNNING IN D5. SC INSULIN GIVEN PER ORDERS. PT AWARE THAT WE ARE WAITING FOR 2 HOURS PRIOR TO DISCONNECTING FOR SC INSULIN TO TAKE AFFECT.
--- NOTE | 2020-04-27 13:56 | NUR ---
PT HAS BEEN TOLD BY THIS RN AND DR OLIVAS THAT HE NEEDS TO EAT SO TO NOT HAVE HYPOGLYCEMIA BUT HAS REFUSED THUS FAR. CRACKERS AT BEDSIDE
--- NOTE | 2020-04-27 15:09 | NUR ---
CALL TO DR OLIVAS WITH PT'S CBG RESULT. WRITING DISCHARGE ORDERS AT THIS TIME. NOTIFIED DC PLANNING TO ARRANGE RIDE
--- NOTE | 2020-04-27 15:14 | NUR ---
PT STATED THAT KPHOS IN HAND WAS HURTING. MADE A THIRD ATTEMPT TO CONVINCE PT TO LET KPHOS RUN THROUGH POWERGLIDE BUT PT REFUSED. STATED HE WANTED KOHOS TO BE STOPPED COMPLETELY. IV TO LEFT HAND REMOVED. POWERGLIDE REMAINING IN CASE OTHER MEDS ARE NEEDED
--- NOTE | 2020-04-27 15:25 | NUR ---
PT POKED HIS HEAD OUT OF ROOM AND ASKED STAFF IF DC ORDER WAS PUT IN. PLACED DC ORDER AT 1519. HE ASKED IF POWERGLIDE COULD BE REMOVED AND STARTED PULLING AT DRESSING. RN ENTERED ROOM AND REMOVED POWERGLIDE WNL. PT ASKED IF HE COULD GO. ASKED PT TO WAIT A FEW MINUTES FOR DC INSTRUCTIONS TO BE COMPLETED. PT STATED HE WOULD WAIT A FEW MINUTES. THEN GOT ON THE PHONE WITH SOMEONE AND SOON HE HUNG UP HE CAME OUT OF THE ROOM AND SAID HE WAS LEAVING. ASKED HIM AGAIN IF HE WOULD WAIT FOR DC INSTRUCTIONS AND HE SAID NO. PT WAS AMBULATORY UPON EXITING ICU. REFUSED TO WAIT FOR DC INSTRUCTIONS
--- NOTE | 2020-04-27 15:38 | NUR ---
PT'S MED REC PRINTED WITH ORDER FOR ABX. PRESCRIPTION WAS CALLED IN TO [facility] IN [place]. CALLED LISTED NUMBER TO GIVE PT INSTRUCTIONS ABOUT PRESCRIPTION AND PT'S BROTHER ANSWERED. TOLD BROTHER TO HAVE PT CALL RN FOR FURTHER INSTRUCTIONS. BROTHER ASKED WHAT CAUSED HIM TO BE ADMITTED BECAUSE HE SAID HE CALLED AMBULANCE. BROTHER'S NAME WAS NOT LISTED SO HE WAS TOLD HE WOULD HAVE TO TALK TO HIS BROTHER FOR FURTHER INFORMATION. WAS GIVEN ICU NUMBER SO HE CAN HAVE HIS BROTHER CALL US FOR PRESCRIPTION INFORMATION
== END 2020-04-27 15:24 | disposition home or self-care (01) | DRG 871 ==
LOC: ER 10:17 → ICUW 10:18 → ICUE 14:26 → EDBD 04-27 15:24 → ICUE 04-27 15:24
PROVIDERS: Nurse Practitioner Acute Care; Physician Assistant; ADMIT Internal Medicine
PROC: 0H9EXZZ Drainage of Left Lower Arm Skin, External Approach (ICD-10-PCS; principal; 2020-04-26)
PROC: 0H9CXZZ Drainage of Left Upper Arm Skin, External Approach (ICD-10-PCS; 2020-04-26)
PROC: 0H9DXZZ Drainage of Right Lower Arm Skin, External Approach (ICD-10-PCS; 2020-04-26)
DX: A41.9 Sepsis, unspecified organism (principal); E10.10 Type 1 diabetes mellitus with ketoacidosis without coma; L02.414 Cutaneous abscess of left upper limb; L02.413 Cutaneous abscess of right upper limb; B37.0 Candidal stomatitis; Z91.14 Patient's other noncompliance with medication regimen; F17.210 Nicotine dependence, cigarettes, uncomplicated; F15.10 Other stimulant abuse, uncomplicated; F11.11 Opioid abuse, in remission; E87.6 Hypokalemia; F43.10 Post-traumatic stress disorder, unspecified
CPT/HCPCS: 36415; 76882; 80053; 81001; 82010; 82803; 82947; 83605; 83690; 83735; 84100; 85025; 87086; 93005; 93010; 99285-25; A9270-GY; C1751; J1815; J1885; J2765; J7030; J7042; J7060

== ENCOUNTER 2020-04-27 22:37 | Emergency (ER) | payer OTHER ==
[~2020-04-27] VITALS: Ht 185.4 cm; Wt 65.8 kg
== END 2020-04-27 23:15 | disposition home or self-care (01) ==
LOC: ER 22:37 → EDBD 22:37 → ER 23:15
DX: L02.413 Cutaneous abscess of right upper limb (principal); E10.9 Type 1 diabetes mellitus without complications; F17.210 Nicotine dependence, cigarettes, uncomplicated; Z88.1 Allergy status to other antibiotic agents; Z88.5 Allergy status to narcotic agent
CPT/HCPCS: 10060; 99283-25

== ENCOUNTER 2020-05-05 08:17 | Emergency (ER) | payer OTHER ==
[~2020-05-05] VITALS: Ht 177.8 cm; Wt 47.6 kg
[2020-05-05 08:34] LABS: Source, Urine Clean Catch
[2020-05-05 08:38] LABS: Appearance, Urine Clear (Clear); Bilirubin, Urine Neg (Neg); Blood, Urine Neg (Neg); Color, Urine Yellow (P-Yellow); Glucose Qualitative, Urine 4+ (Neg); Ketones, Urine 4+ (Neg); Leukocyte Esterase, Urine Neg (Neg); Nitrite, Urine Neg (Neg); Protein, Urine Neg (Neg); Urobilinogen, Urine NORM (Normal)
== END 2020-05-05 09:37 | disposition left against medical advice (07) ==
LOC: EDBD 08:17 → ER 08:17
PROVIDERS: Emergency Medicine
DX: F11.23 Opioid dependence with withdrawal (principal); E10.65 Type 1 diabetes mellitus with hyperglycemia; F17.210 Nicotine dependence, cigarettes, uncomplicated; Z53.20 Procedure and treatment not carried out because of patient's decision for unspecified reasons; Z88.1 Allergy status to other antibiotic agents; Z88.5 Allergy status to narcotic agent
CPT/HCPCS: 81003; 93005; 93010; 96361; 96374; 96375; 99284-25; J2405; J2550; J7030

== ENCOUNTER 2020-05-05 09:41 | Inpatient (IN) | payer OTHER ==
[~2020-05-05] VITALS: Ht 182.9 cm; Wt 77.1 kg
[2020-05-05 10:35] LABS: BASOPHILS ABSOLUTE AUTO 0.09 K/mm3 (0.00-0.23); BASOPHILS PERCENT AUTO 0 % (0-2); EOSINOPHILS PERCENT AUTO 0 % (0-6); Hematocrit 52.9 % (37.0-53.0); Hemoglobin 17.4 g/dL (13.5-17.5); IMMATURE GRAN PERCENT AUTO 3 % (0-1); LYMPHOCYTES ABSOLUTE AUTO 1.79 K/mm3 (0.84-5.20); LYMPHOCYTES PERCENT AUTO 8 % (21-46); MONOCYTES ABSOLUTE AUTO 1.45 K/mm3 (0.16-1.47); MONOCYTES PERCENT AUTO 7 % (4-13); Mean Corpuscular HGB 27.4 pg (26.0-34.0); Mean Corpuscular HGB Conc 32.9 g/dL (31.5-36.5); Mean Corpuscular Volume 83 fL (80-100); Mean Platelet Volume 10.3 fL (9.1-12.4); NEUTROPHILS ABSOLUTE AUTO 18.38 K/mm3 (1.96-9.15); NEUTROPHILS PERCENT AUTO 82 % (41-73); Platelet Count 409 K/mm3 (150-400); RDW Coefficient Variation 16.7 % (11.7-14.2); Red Blood Cell Count 6.35 M/mm3 (4.30-5.90); White Blood Cell Count 22.31 K/mm3 (4.00-11.30)
[2020-05-05 10:56] LABS: Alanine Aminotransfer (ALT/SGP 22 U/L (12-78); Albumin, Blood 4.1 g/dL (3.4-5.0); Albumin/Globulin Ratio 0.9 (0.8-1.8); Alk Phos 153 U/L (50-136); Anion Gap 32 mmol/L (6-16); Aspartate Aminotrans (AST/SGOT 16 U/L (12-37); Bilirubin, Total 0.8 mg/dL (0.1-1.0); Blood Urea Nitrogen 30 mg/dL (8-24); Bun/Creatinine Ratio 38.1 (12.0-20.0); CO2, Blood 9 mmol/L (21-32); Calcium, Blood 9.7 mg/dL (8.5-10.1); Chloride, Blood 98 mmol/L (98-108); Creatinine, Blood 0.79 mg/dL (0.60-1.20); Globulin, Blood 4.4 g/dL (2.2-4.0); Glomerular Filtration Rate >60 (60-); Glucose, Blood 546 mg/dL (70-99); Potassium, Blood 5.2 mmol/L (3.5-5.5); Sodium, Blood 139 mmol/L (136-145); Total Protein, Blood 8.5 g/dL (6.4-8.2)
[2020-05-05 12:01] LABS: Source, Urine Voided
[2020-05-05 12:04] LABS: Appearance, Urine Clear (Clear); Bilirubin, Urine Neg (Neg); Blood, Urine Neg (Neg); Color, Urine Yellow (P-Yellow); Glucose Qualitative, Urine 4+ (Neg); Ketones, Urine 4+ (Neg); Leukocyte Esterase, Urine Neg (Neg); Nitrite, Urine Neg (Neg); Protein, Urine 1+ (Neg); Specific Gravity, Urine 1.025 (1.003-1.022); Urobilinogen, Urine NORM (Normal)
--- NOTE | 2020-05-05 13:51 | NUR ---
PT AMITTED TO ICU FOR DKA AND OPIATE WITHDRAWL FROM ER AT 1315. HOSPICE CASE MANAGER TOOK REPORT AND TRANSFERED PT TO BED. I ASSUMED CARE AT 1330. NS BOLUS INFUSING W INSULIN AT 7UNITS/HR. PT AWAKE AND SEVERELY AGITATED. PT RETCHING. PT LEFT BED W IV ATTACHED TO ARM;PULLING IV. IV DISCONNECTED. PT INSISTED/ADAMANT THAT HE NEEDED TO TAKE A SHOWER. PT ATTEMPTING TO WANDER ICU TO FIND SHOWER W UNSTEADY GAIT AND HALF OPENED EYES. PT'S CONVERSTAION AND REASONING VERY IRRATIONAL. DR OLIVAS AND SECURITY CALLED. IM ZYPREXA ORDERED. PT ORIENTED TO SELF AND PLACE. PT COAXED BACK TO BED. IM ZYPREXA GIVEN W/O INCIDENT. IF PT ATTEMPTS TO LEAVE DR OLIVAS WILL CONSIDER 2MD HOLD. PT SLEEPING NOW W RESP RATE HIGH 40'S LOW 50'S. PT FLUSHED. IV BOLUS INFUSING ALONG W INSULIN.
--- NOTE | 2020-05-05 14:39 | NUR ---
PT REFUSING ASSESSMENT, REFUSING BP, BUT ALLOWING BOLUS AND INSULIN AT THIS TIME.
[2020-05-05 17:46] LABS: Anion Gap 22 mmol/L (6-16); Blood Urea Nitrogen 26 mg/dL (8-24); Bun/Creatinine Ratio 39.7 (12.0-20.0); CO2, Blood 12 mmol/L (21-32); Calcium, Blood 8.1 mg/dL (8.5-10.1); Chloride, Blood 114 mmol/L (98-108); Creatinine, Blood 0.66 mg/dL (0.60-1.20); Glomerular Filtration Rate >60 (60-); Glucose, Blood 234 mg/dL (70-99); Potassium, Blood 3.9 mmol/L (3.5-5.5); Sodium, Blood 148 mmol/L (136-145)
--- NOTE | 2020-05-05 19:26 | NUR ---
PT SLEPT MOST OF SHIFT FOLLOWING ZYPREXA. NAUSEA W RETCHING X2; ZOFRAN GIVEN X2. HALF DOSE OF MS GIVEN D/T SEDATION. POWERGLIDE PLACED BUT PT REFUSED OTHER CARE SUCH ASSESSMENT. PT ALLOWED FINGER POKES FOR BS. INSULIN AT 5UNITS/HR. NS AT 200CC/HR 3L BOLUS TOTAL. ABLE TO DRAW CHEM [address] OLIVAS CALLED AND GIVEN COMPLETE UPDATE AT 1730. PT HAD LOW GRADE TEMP BUT PT WRAPPED IN 3 WARN BLANKETS.
--- NOTE | 2020-05-05 20:20 | NUR ---
ASSUMED CARE RECEIVED REPORT FROM JOSIE SMITH. PT IS LYING IN BED, HE WAS SLEEPING, BUT NOW IS IN AND OUT OF SLEEP. WHEN AWAKE HE KNOWS HIS NAME, THE YEAR, AND THAT HE IS IN A HOSPITAL. OTHER THAN A FEW QUESTIONS, THE PT DOES NOT COMMUNICATE WITH ME TOO WELL, HE IS AGITATED/ANXIOUS, MOANS, CRIES OUT, AND IS COMPLAINING OF HIS STOMACH HURTING. HE REFUSES A LOT OF CARE, FOR EXAMPLE, SOMETIMES REFUSING FINGER STICKS FOR CBG, ORAL CARE, AND ON DAY SHIFT - HE REFUSED LABS TO BE DRAWN (BEFORE THE ZYPREXA -EARLIER TODAY). HE IS IN A SINUS RHYTHM, RATE 60-110 DEPENDING ON HIS AGITATION LEVEL. HE REFUSES BLOOD PRESSURES, WILL CONTINUE TO TRY AND ENCOURAGE TO ALLOW US TO TAKE A BP. BED LOW AND LOCKED. CALL LIGHT WITHIN REACH.
--- NOTE | 2020-05-06 00:30 | NUR ---
UPDATE PT NOT LETTING ME LISTEN TO HIS LUNGS/HEARTS, OR ANYTHING HANDS ON. PT CONTINUES TO BE IN AND OUT OF SLEEP, ONE MOMENT CALM AND SLEEPING, THE NEXT WAKING UP, MOANING, CRYING OUT, AGITATED/ANXIOUS WANTING MORPHINE DUE TO HIS PAIN/WITHDRAWAL. UNABLE TO DO A FULL HEAD TO TOE REASSESSMENT. CONTINUES TO REFUSE BP MEASUREMENTS.
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
--- NOTE | 2020-05-06 06:20 | NUR ---
SUMMARY SINCE LAST NOTE, PT HAS BEEN SLEEPING AND OCCASSIONALLY WAKING UP YELLING OUT FOR WATER. HE HAD URINATED IN THE TRASH, DESPITE HAVING A URINAL WITHIN HIS REACH. I REMINDED HIM TO USE THAT FOR NEXT TIME. PT IS SO SLEEPY THAT EVEN WHEN HE TALKS ABOUT POTENTIALLY LEAVING AMA, HE FALLS ASLEEP. HE IS IN SINUS BRADYCARDIA TO SINUS RHYTHM, RATE DEPENDING ON HIS AGITATION LEVEL. I WENT INTO THE ROOM AND ASKED AGAIN IF WE COULD DRAW BLOOD, AND HE CONTINUED TO REFUSE. HIS IV's ARE SALINE LOCKED. BED LOW AND LOCKED. CALL LIGHT WITHIN REACH.
--- NOTE | 2020-05-06 07:27 | NUR ---
KRISTIE PT DECIDED TO LEAVE [facility], BECAUSE HE WASN'T GETTING ANY MORE PAIN MEDICATION AND BECAUSE HE WAS ALREADY REFUSING TREATMENT. HE WAS ALERT AND ORIENTED X 4. HE APPEARED A LITTLE SHAKY AND ANXIOUS, BUT CALM AND COMPETENT TO MAKE A DECISION LIKE THIS. I INFORMED HIM OF THE RISKS OF LEAVING, AND THE BENEFITS OF STAYING BUT HE WAS ADAMENT THAT HE WANTED TO LEAVE. HE STATED HE "...FELT BETTER". I REMOVED HIS IVs, GAVE HIM A PHONE TO CALL HIS DAD, AND GOT HIS STUFF READY. HE SIGNED THE AMA FORM AT 0700, AND WAS OUT OF THE UNIT BY 0715.
== END 2020-05-06 07:15 | disposition left against medical advice (07) | DRG 637 ==
LOC: ER 09:41 → ICUW 12:08 → ICUE 13:15
PROVIDERS: Emergency Medicine; ADMIT Internal Medicine
DX: E10.10 Type 1 diabetes mellitus with ketoacidosis without coma (principal); E43 Unspecified severe protein-calorie malnutrition; F11.23 Opioid dependence with withdrawal; Z20.828 Contact with and (suspected) exposure to other viral communicable diseases; Z79.4 Long term (current) use of insulin; F43.10 Post-traumatic stress disorder, unspecified; F17.210 Nicotine dependence, cigarettes, uncomplicated
CPT/HCPCS: 36415; 71045; 80048; 80053; 82947; 83690; 85025; 99285-25; C1751; J1815; J2270; J2405; J2765; J7030; J7042